=== PATIENT | female | born 1950 | race Caucasian/White ===

== ENCOUNTER → 2016-04-28 | Outpatient (CLI) | payer OTHER ==
[~2016-04-28] MED LIST: ASTAGRAF PO; BACTRIM 400 MG-1 TAB PO; COUMADIN1 M1 PO; DILTIAZEM ER120 MG PO; MAGNESIUM400 MG PO; MYCOPHENOLATE250 MG PO; PRAVACHOL20 MG PO; PREDNISONE5 MG PO; VITAMIN D32000 UNIT PO
[2016-04-28 11:06] LABS: INTERNATIONAL NORM RATIO 2.4 (2.0-3.5); PROTHROMBIN TIME 26.5 SECONDS (9.0-12.4)
== END | disposition home or self-care (01) ==
LOC: LAB 10:18
PROVIDERS: Internal Medicine
DX: I26.99 Other pulmonary embolism without acute cor pulmonale (principal); I82.409 Acute embolism and thrombosis of unspecified deep veins of unspecified lower extremity

== ENCOUNTER → 2016-05-02 | Outpatient (CLI) | payer OTHER ==
[2016-05-02 09:02] LABS: HEMATOCRIT 37.9 % (37.0-47.0); MEAN CELL VOLUME 87.7 fl (81.0-99.0); MEAN CORPUSCULAR HGB 27.8 pg (27.0-31.0); MEAN CORPUSCULAR HGB CONC 31.7 g/dl (33.0-37.0); MEAN PLATELET VOLUME 8.8 fl (9.6-12.3); PLATELET COUNT AUTOMATED 256 10*3/uL (130-400); RED BLOOD COUNT 4.32 10*6/uL (4.10-5.10); RED CELL DISTRI WIDTH 14.8 % (0-14.5); WHITE BLOOD COUNT 8.2 10*3/uL (4.8-10.8)
[2016-05-02 09:16] LABS: ALBUMIN 3.6 gm/dl (3.1-4.5); MAGNESIUM 1.8 mg/dL (1.5-2.1); PHOSPHOROUS 3.5 mg/dL (2.5-4.9)
[2016-05-02 09:21] LABS: EOSINOPHIL # 0.1 10*3/uL (0-0.4); EOSINOPHILS 1 % (1-4); LYMPHOCYTE # 2.3 10*3/uL (1.3-4.4); MONOCYTE # 0.8 10*3/uL (0.1-1.0); MYELOCYTES 1 % (0-0); NEUTROPHIL # 4.9 10*3/uL (2.3-7.9); NEUTROPHILS 60 % (47-73); TOTAL CELLS COUNTED 100 #CELLS
[2016-05-02 09:22] LABS: OVALOCYTES FEW; PLATELET SUFFICIENCY NORMAL (NORMAL)
== END | disposition home or self-care (01) ==
LOC: LAB 08:42
PROVIDERS: Internal Medicine Nephrology
DX: Z41.9 Encounter for procedure for purposes other than remedying health state, unspecified (principal); Z48.298 Encounter for aftercare following other organ transplant; E78.5 Hyperlipidemia, unspecified; Z94.0 Kidney transplant status; E55.9 Vitamin D deficiency, unspecified; N25.81 Secondary hyperparathyroidism of renal origin

== ENCOUNTER → 2016-07-11 | Outpatient (CLI) | payer OTHER ==
[2016-07-11 10:36] LABS: INTERNATIONAL NORM RATIO 3.1 (2.0-3.5); PROTHROMBIN TIME 35.4 SECONDS (9.0-12.4)
== END | disposition home or self-care (01) ==
LOC: LAB 09:43
PROVIDERS: Internal Medicine
DX: I26.99 Other pulmonary embolism without acute cor pulmonale (principal); I82.409 Acute embolism and thrombosis of unspecified deep veins of unspecified lower extremity

== ENCOUNTER → 2016-07-19 | Outpatient (CLI) | payer OTHER ==
[2016-07-19 09:21] LABS: BASO % 0.4 % (0.0-1.0); EOS # 0.1 10*3/uL (0.0-0.4); EOS % 0.7 % (1.0-4.0); HEMATOCRIT 38.1 % (37.0-47.0); HEMOGLOBIN 12.1 g/dl (12.0-16.0); LYMPH # 2.5 10*3/uL (1.3-4.4); LYMPH % 35.1 % (27.0-41.0); MEAN CELL VOLUME 88.2 fl (81.0-99.0); MEAN CORPUSCULAR HGB CONC 31.8 g/dl (33.0-37.0); MEAN PLATELET VOLUME 8.8 fl (9.6-12.3); MONO # 0.6 10*3/uL (0.1-1.0); MONO % 8.7 % (3.0-9.0); NEUT # 3.8 10*3/uL (2.3-7.9); NEUT % 54.5 % (47.0-73.0); PLATELET COUNT AUTOMATED 250 10*3/uL (130-400); RED BLOOD COUNT 4.32 10*6/uL (4.10-5.10); RED CELL DISTRI WIDTH 13.3 % (0-14.5)
[2016-07-19 09:48] LABS: ALBUMIN 3.3 gm/dl (3.1-4.5); ALKALINE PHOSPHATASE 54 U/L (45-117); BILIRUBIN, DIRECT < 0.1 mg/dL (0.0-0.2); BILIRUBIN, TOTAL 0.3 mg/dl (0.2-1.0); BUN 20 mg/dl (7-24); CARBON DIOXIDE 24 mmol/L (21-32); CHLORIDE 106 mmol/L (98-107); CHOLESTEROL 174 mg/dL (<200); EST GLOM FILT AFRICAN AMERICAN 50 ml/min; GLUCOSE 128 mg/dL (65-99); HDL CHOLESTEROL 66 mg/dl (40-60); LDL CHOLESTEROL 55 mg/dL (9-159); MAGNESIUM 1.6 mg/dL (1.5-2.1); PHOSPHOROUS 3.5 mg/dL (2.5-4.9); POTASSIUM 3.9 mmol/L (3.5-5.1); SGOT/AST 13 IU/L (3-35); SGPT/ALT 32 U/L (12-78); SODIUM 141 mmol/L (136-145); TOTAL PROTEIN 6.2 gm/dL (6.4-8.2); TRIGLYCERIDES 265 mg/dl (<150); VLDL CHOLESTEROL 53 mg/dL (6-40)
[2016-07-19 09:53] LABS: INTERNATIONAL NORM RATIO 2.7 (2.0-3.5); PROTHROMBIN TIME 29.9 SECONDS (9.0-12.4)
[2016-07-19 10:11] LABS: PTH INTACT 82.1 pg/mL (14.0-72.0); VITAMIN D, 25-HYDROXY 29.9 ng/mL (30-100)
== END | disposition home or self-care (01) ==
LOC: LAB 08:49
PROVIDERS: Internal Medicine Nephrology
DX: Z41.8 Encounter for other procedures for purposes other than remedying health state (principal); Z48.298 Encounter for aftercare following other organ transplant; I82.409 Acute embolism and thrombosis of unspecified deep veins of unspecified lower extremity; I26.99 Other pulmonary embolism without acute cor pulmonale; E55.9 Vitamin D deficiency, unspecified; N25.81 Secondary hyperparathyroidism of renal origin; E78.5 Hyperlipidemia, unspecified; Z94.0 Kidney transplant status

== ENCOUNTER → 2016-08-01 | Outpatient (CLI) | payer OTHER ==
[2016-08-01 13:19] LABS: INTERNATIONAL NORM RATIO 1.7 (2.0-3.5); PROTHROMBIN TIME 18.8 SECONDS (9.0-12.4)
== END | disposition home or self-care (01) ==
LOC: LAB 12:37
PROVIDERS: Internal Medicine
DX: I26.99 Other pulmonary embolism without acute cor pulmonale (principal); I82.409 Acute embolism and thrombosis of unspecified deep veins of unspecified lower extremity

== ENCOUNTER → 2016-08-23 | Outpatient (CLI) | payer OTHER ==
[2016-08-23 09:24] LABS: BASO % 0.2 % (0.0-1.0); EOS % 0.3 % (1.0-4.0); HEMATOCRIT 38.5 % (37.0-47.0); HEMOGLOBIN 12.4 g/dl (12.0-16.0); IG # 0.1 10*3/uL (0.0-0.1); LYMPH # 3.2 10*3/uL (1.3-4.4); LYMPH % 30.6 % (27.0-41.0); MEAN CELL VOLUME 87.3 fl (81.0-99.0); MEAN CORPUSCULAR HGB 28.1 pg (27.0-31.0); MEAN CORPUSCULAR HGB CONC 32.2 g/dl (33.0-37.0); MEAN PLATELET VOLUME 9.3 fl (9.6-12.3); MONO # 0.9 10*3/uL (0.1-1.0); MONO % 8.9 % (3.0-9.0); NEUT # 6.2 10*3/uL (2.3-7.9); NEUT % 59.5 % (47.0-73.0); PLATELET COUNT AUTOMATED 290 10*3/uL (130-400); RED BLOOD COUNT 4.41 10*6/uL (4.10-5.10); RED CELL DISTRI WIDTH 13.4 % (0-14.5); WHITE BLOOD COUNT 10.4 10*3/uL (4.8-10.8)
[2016-08-23 09:35] LABS: ALBUMIN 3.3 gm/dl (3.1-4.5); MAGNESIUM 1.8 mg/dL (1.5-2.1); PHOSPHOROUS 2.8 mg/dL (2.5-4.9)
[2016-08-23 09:51] LABS: INTERNATIONAL NORM RATIO 1.6 (2.0-3.5); PROTHROMBIN TIME 17.2 SECONDS (9.0-12.4)
== END | disposition home or self-care (01) ==
LOC: LAB 08:59
PROVIDERS: Internal Medicine; Internal Medicine Nephrology
DX: Z51.81 Encounter for therapeutic drug level monitoring (principal); I48.0 Paroxysmal atrial fibrillation; N25.81 Secondary hyperparathyroidism of renal origin; E55.9 Vitamin D deficiency, unspecified; E78.5 Hyperlipidemia, unspecified; Z94.0 Kidney transplant status; Z48.298 Encounter for aftercare following other organ transplant

== ENCOUNTER → 2016-11-17 | Outpatient (CLI) | payer OTHER ==
[2016-11-17 09:33] LABS: BASO % 0.3 % (0.0-1.0); EOS % 0.4 % (1.0-4.0); HEMATOCRIT 32.4 % (37.0-47.0); IG # 0.1 10*3/uL (0.0-0.1); LYMPH # 2.3 10*3/uL (1.3-4.4); LYMPH % 33.2 % (27.0-41.0); MEAN CELL VOLUME 89.8 fl (81.0-99.0); MEAN CORPUSCULAR HGB 27.7 pg (27.0-31.0); MEAN CORPUSCULAR HGB CONC 30.9 g/dl (33.0-37.0); MEAN PLATELET VOLUME 9.6 fl (9.6-12.3); MONO # 0.6 10*3/uL (0.1-1.0); PLATELET COUNT AUTOMATED 312 10*3/uL (130-400); RED BLOOD COUNT 3.61 10*6/uL (4.10-5.10); RED CELL DISTRI WIDTH 16.6 % (0-14.5)
[2016-11-17 09:51] LABS: INTERNATIONAL NORM RATIO 1.7 (2.0-3.5); PROTHROMBIN TIME 18.7 SECONDS (9.0-12.4)
[2016-11-17 09:58] LABS: ALBUMIN 2.9 gm/dl (3.1-4.5); BILIRUBIN, DIRECT < 0.1 mg/dL (0.0-0.2); BUN 17 mg/dl (7-24); CARBON DIOXIDE 19 mmol/L (21-32); CHLORIDE 107 mmol/L (98-107); CHOLESTEROL 166 mg/dL (<200); EST GLOM FILT AFRICAN AMERICAN > 60 ml/min; GLUCOSE 122 mg/dL (65-99); MAGNESIUM 1.3 mg/dL (1.5-2.1); PHOSPHOROUS 3.2 mg/dL (2.5-4.9); POTASSIUM 3.4 mmol/L (3.5-5.1); SGOT/AST 11 IU/L (3-35); SGPT/ALT 15 U/L (12-78); SODIUM 138 mmol/L (136-145); TOTAL PROTEIN 6.2 gm/dL (6.4-8.2); TRIGLYCERIDES 328 mg/dl (<150); VLDL CHOLESTEROL 66 mg/dL (6-40)
[2016-11-17 10:00] LABS: ALKALINE PHOSPHATASE 43 U/L (45-117); BILIRUBIN, TOTAL 0.3 mg/dl (0.2-1.0); HDL CHOLESTEROL 42 mg/dl (40-60); LDL CHOLESTEROL 58 mg/dL (9-159)
[2016-11-17 10:16] LABS: PTH INTACT 30.3 pg/mL (14.0-72.0); VITAMIN D, 25-HYDROXY 36.4 ng/mL (30-100)
== END | disposition home or self-care (01) ==
LOC: LAB 08:21
PROVIDERS: Internal Medicine Nephrology
DX: Z51.81 Encounter for therapeutic drug level monitoring (principal); Z48.298 Encounter for aftercare following other organ transplant; I48.0 Paroxysmal atrial fibrillation; E78.00 Pure hypercholesterolemia, unspecified; E55.9 Vitamin D deficiency, unspecified; Z97.0 Presence of artificial eye

== ENCOUNTER → 2016-11-28 | Outpatient (CLI) | payer OTHER ==
[2016-11-28 10:26] LABS: BASO % 0.3 % (0.0-1.0); EOS % 0.5 % (1.0-4.0); HEMATOCRIT 30.6 % (37.0-47.0); HEMOGLOBIN 9.4 g/dl (12.0-16.0); IG # 0.1 10*3/uL (0.0-0.1); LYMPH # 2.7 10*3/uL (1.3-4.4); LYMPH % 36.5 % (27.0-41.0); MEAN CELL VOLUME 91.9 fl (81.0-99.0); MEAN CORPUSCULAR HGB 28.2 pg (27.0-31.0); MEAN CORPUSCULAR HGB CONC 30.7 g/dl (33.0-37.0); MEAN PLATELET VOLUME 9.5 fl (9.6-12.3); MONO # 0.6 10*3/uL (0.1-1.0); MONO % 8.1 % (3.0-9.0); NEUT # 3.9 10*3/uL (2.3-7.9); NEUT % 53.6 % (47.0-73.0); PLATELET COUNT AUTOMATED 293 10*3/uL (130-400); RED BLOOD COUNT 3.33 10*6/uL (4.10-5.10); RED CELL DISTRI WIDTH 16.5 % (0-14.5); WHITE BLOOD COUNT 7.3 10*3/uL (4.8-10.8)
[2016-11-28 10:52] LABS: INTERNATIONAL NORM RATIO 1.5 (2.0-3.5); PROTHROMBIN TIME 16.1 SECONDS (9.0-12.4)
[2016-11-28 10:55] LABS: MAGNESIUM 1.6 mg/dL (1.5-2.1); POTASSIUM 3.8 mmol/L (3.5-5.1); URIC ACID 8.7 mg/dL (2.6-6.0)
[2016-11-28 11:16] LABS: PTH INTACT 81.9 pg/mL (14.0-72.0); VITAMIN D, 25-HYDROXY 31.6 ng/mL (30-100)
[2016-11-29 05:11] LABS: MICRO ALBUMIN/CRE RATIO 9.6 (0.0-30.0)
== END | disposition home or self-care (01) ==
LOC: LAB 09:23
PROVIDERS: Internal Medicine Nephrology
DX: I12.9 Hypertensive chronic kidney disease with stage 1 through stage 4 chronic kidney disease, or unspecified chronic kidney disease (principal); N18.4 Chronic kidney disease, stage 4 (severe); D63.1 Anemia in chronic kidney disease; I48.0 Paroxysmal atrial fibrillation; N25.81 Secondary hyperparathyroidism of renal origin; E55.9 Vitamin D deficiency, unspecified; Q61.3 Polycystic kidney, unspecified; Z94.0 Kidney transplant status

== ENCOUNTER → 2016-12-12 | Outpatient (CLI) | payer OTHER ==
[2016-12-12 10:26] LABS: INTERNATIONAL NORM RATIO 2.2 (2.0-3.5); PROTHROMBIN TIME 25.1 SECONDS (9.0-12.4)
== END | disposition home or self-care (01) ==
LOC: LAB 09:40
PROVIDERS: Internal Medicine
DX: I48.0 Paroxysmal atrial fibrillation (principal)

== ENCOUNTER → 2016-12-23 | Outpatient (CLI) | payer OTHER ==
[2016-12-23 10:28] LABS: INTERNATIONAL NORM RATIO 1.8 (2.0-3.5)
== END | disposition home or self-care (01) ==
LOC: LAB 09:46
PROVIDERS: Internal Medicine
DX: I48.0 Paroxysmal atrial fibrillation (principal)

== ENCOUNTER → 2016-12-28 | Outpatient (CLI) | payer OTHER ==
[2016-12-28 08:39] LABS: BASO % 0.5 % (0.0-1.0); EOS # 0.1 10*3/uL (0.0-0.4); EOS % 0.8 % (1.0-4.0); HEMATOCRIT 35.7 % (37.0-47.0); HEMOGLOBIN 11.2 g/dl (12.0-16.0); LYMPH # 3.3 10*3/uL (1.3-4.4); LYMPH % 44.3 % (27.0-41.0); MEAN CELL VOLUME 90.4 fl (81.0-99.0); MEAN CORPUSCULAR HGB 28.4 pg (27.0-31.0); MEAN CORPUSCULAR HGB CONC 31.4 g/dl (33.0-37.0); MEAN PLATELET VOLUME 9.6 fl (9.6-12.3); MONO # 0.7 10*3/uL (0.1-1.0); NEUT # 3.3 10*3/uL (2.3-7.9); NEUT % 44.2 % (47.0-73.0); PLATELET COUNT AUTOMATED 288 10*3/uL (130-400); RED BLOOD COUNT 3.95 10*6/uL (4.10-5.10); RED CELL DISTRI WIDTH 14.5 % (0-14.5); WHITE BLOOD COUNT 7.4 10*3/uL (4.8-10.8)
[2016-12-28 08:53] LABS: CREATININE 1.34 mg/dL (0.55-1.02); MAGNESIUM 1.9 mg/dL (1.5-2.1); URIC ACID 8.3 mg/dL (2.6-6.0)
[2016-12-28 09:18] LABS: POTASSIUM 4.4 mmol/L (3.5-5.1)
[2016-12-28 09:26] LABS: VITAMIN D, 25-HYDROXY 34.5 ng/mL (30-100)
[2016-12-29 10:09] LABS: CREATININE,URINE 137.5 mg/dL (Not Estab.); MICRO ALBUMIN/CRE RATIO 32.8 (0.0-30.0)
== END | disposition home or self-care (01) ==
LOC: LAB 07:53
PROVIDERS: Internal Medicine Nephrology
DX: I12.9 Hypertensive chronic kidney disease with stage 1 through stage 4 chronic kidney disease, or unspecified chronic kidney disease (principal); N18.4 Chronic kidney disease, stage 4 (severe); E55.9 Vitamin D deficiency, unspecified; D63.1 Anemia in chronic kidney disease; N25.81 Secondary hyperparathyroidism of renal origin; Q61.3 Polycystic kidney, unspecified; Z94.0 Kidney transplant status

== ENCOUNTER → 2017-01-16 | Outpatient (CLI) | payer OTHER ==
[2017-01-16 09:00] LABS: BASO % 0.4 % (0.0-1.0); EOS # 0.1 10*3/uL (0.0-0.4); EOS % 0.7 % (1.0-4.0); HEMATOCRIT 35.3 % (37.0-47.0); HEMOGLOBIN 11.4 g/dl (12.0-16.0); LYMPH # 2.7 10*3/uL (1.3-4.4); LYMPH % 35.3 % (27.0-41.0); MEAN CELL VOLUME 88.5 fl (81.0-99.0); MEAN CORPUSCULAR HGB 28.6 pg (27.0-31.0); MEAN CORPUSCULAR HGB CONC 32.3 g/dl (33.0-37.0); MEAN PLATELET VOLUME 9.4 fl (9.6-12.3); MONO # 0.6 10*3/uL (0.1-1.0); MONO % 7.9 % (3.0-9.0); NEUT # 4.1 10*3/uL (2.3-7.9); NEUT % 54.4 % (47.0-73.0); PLATELET COUNT AUTOMATED 255 10*3/uL (130-400); RED BLOOD COUNT 3.99 10*6/uL (4.10-5.10); WHITE BLOOD COUNT 7.6 10*3/uL (4.8-10.8)
[2017-01-16 09:34] LABS: ALBUMIN 3.2 gm/dl (3.1-4.5); CREATININE 1.2 mg/dL (0.55-1.02); MAGNESIUM 1.7 mg/dL (1.5-2.1); PHOSPHOROUS 3.3 mg/dL (2.5-4.9)
[2017-01-16 09:40] LABS: INTERNATIONAL NORM RATIO 2.5 (2.0-3.5)
[2017-01-16 09:49] LABS: DIGOXIN 0.7 ng/ml (0.8-2.0); TOTAL PROTEIN 6.5 gm/dL (6.4-8.2)
[2017-01-16 10:42] LABS: PTH INTACT 76.8 pg/mL (14.0-72.0); VITAMIN D, 25-HYDROXY 25.5 ng/mL (30-100)
[2017-01-16 14:46] LABS: BILIRUBIN NEGATIVE (NEGATIVE); BLOOD NEGATIVE (NEGATIVE); CLARITY SL CLOUDY (CLEAR); COLOR YELLOW (YELLOW); GLUCOSE NEGATIVE (NEGATIVE); KETONE NEGATIVE (NEGATIVE); LEUKO ESTERASE TRACE (NEGATIVE); NITRITE NEGATIVE (NEGATIVE); SPECIFIC GRAVITY 1.025 (1.005-1.030); UROBILINOGEN 0.2 E.U./dl (0.2-1.0)
[2017-01-16 15:01] LABS: BACTERIA 1+; EPITHELIAL CELLS TNTC; RBC 0-2 rbc/hpf (0-2)
== END | disposition home or self-care (01) ==
LOC: LAB 08:29
PROVIDERS: Internal Medicine; Internal Medicine Nephrology
DX: N18.4 Chronic kidney disease, stage 4 (severe) (principal); E55.9 Vitamin D deficiency, unspecified; I48.0 Paroxysmal atrial fibrillation

== ENCOUNTER → 2017-02-07 | Outpatient (CLI) | payer OTHER ==
[2017-02-07 08:56] LABS: INTERNATIONAL NORM RATIO 2.2 (2.0-3.5)
== END | disposition home or self-care (01) ==
LOC: LAB 07:49
PROVIDERS: Internal Medicine
DX: I48.0 Paroxysmal atrial fibrillation (principal)

== ENCOUNTER → 2017-03-01 | Outpatient (CLI) | payer OTHER ==
[2017-03-01 08:52] LABS: BASO % 0.3 % (0.0-1.0); EOS # 0.1 10*3/uL (0.0-0.4); EOS % 0.7 % (1.0-4.0); HEMATOCRIT 35.6 % (37.0-47.0); HEMOGLOBIN 11.3 g/dl (12.0-16.0); LYMPH % 26.5 % (27.0-41.0); MEAN CELL VOLUME 89.7 fl (81.0-99.0); MEAN CORPUSCULAR HGB 28.5 pg (27.0-31.0); MEAN CORPUSCULAR HGB CONC 31.7 g/dl (33.0-37.0); MEAN PLATELET VOLUME 9.1 fl (9.6-12.3); MONO # 0.7 10*3/uL (0.1-1.0); NEUT # 4.7 10*3/uL (2.3-7.9); NEUT % 62.6 % (47.0-73.0); PLATELET COUNT AUTOMATED 244 10*3/uL (130-400); RED BLOOD COUNT 3.97 10*6/uL (4.10-5.10); WHITE BLOOD COUNT 7.5 10*3/uL (4.8-10.8)
[2017-03-01 09:15] LABS: CREATININE 1.23 mg/dL (0.55-1.02)
[2017-03-01 09:35] LABS: INTERNATIONAL NORM RATIO 1.8 (2.0-3.5)
[2017-03-01 09:40] LABS: VITAMIN D, 25-HYDROXY 30.3 ng/mL (30-100)
[2017-03-01 09:41] LABS: PTH INTACT 49.5 pg/mL (14.0-72.0)
[2017-03-01 16:12] LABS: BILIRUBIN NEGATIVE (NEGATIVE); BLOOD NEGATIVE (NEGATIVE); CLARITY SL CLOUDY (CLEAR); COLOR YELLOW (YELLOW); GLUCOSE 1+ (NEGATIVE); KETONE NEGATIVE (NEGATIVE); LEUKO ESTERASE NEGATIVE (NEGATIVE); NITRITE NEGATIVE (NEGATIVE); UROBILINOGEN 0.2 E.U./dl (0.2-1.0)
[2017-03-01 16:34] LABS: BACTERIA 1+; EPITHELIAL CELLS 21-30
== END | disposition home or self-care (01) ==
LOC: LAB 08:32
PROVIDERS: Internal Medicine Nephrology
DX: N18.4 Chronic kidney disease, stage 4 (severe) (principal); I48.0 Paroxysmal atrial fibrillation; E55.9 Vitamin D deficiency, unspecified

== ENCOUNTER → 2017-03-27 | Outpatient (CLI) | payer OTHER ==
[2017-03-27 09:02] LABS: BASO % 0.4 % (0.0-1.0); EOS % 0.5 % (1.0-4.0); HEMATOCRIT 37.6 % (37.0-47.0); HEMOGLOBIN 12.2 g/dl (12.0-16.0); LYMPH # 2.5 10*3/uL (1.3-4.4); LYMPH % 29.3 % (27.0-41.0); MEAN CELL VOLUME 89.5 fl (81.0-99.0); MEAN CORPUSCULAR HGB CONC 32.4 g/dl (33.0-37.0); MEAN PLATELET VOLUME 9.3 fl (9.6-12.3); MONO # 0.7 10*3/uL (0.1-1.0); MONO % 7.9 % (3.0-9.0); NEUT # 5.1 10*3/uL (2.3-7.9); NEUT % 60.7 % (47.0-73.0); PLATELET COUNT AUTOMATED 266 10*3/uL (130-400); WHITE BLOOD COUNT 8.4 10*3/uL (4.8-10.8)
[2017-03-27 09:34] LABS: INTERNATIONAL NORM RATIO 1.4 (2.0-3.5)
[2017-03-27 09:43] LABS: POTASSIUM 3.7 mmol/L (3.5-5.1)
[2017-03-27 10:00] LABS: CREATININE 1.18 mg/dL (0.55-1.02); PHOSPHOROUS 2.9 mg/dL (2.5-4.9)
[2017-03-27 11:08] LABS: PTH INTACT 74.6 pg/mL (14.0-72.0); VITAMIN D, 25-HYDROXY 25.7 ng/mL (30-100)
[2017-03-27 13:31] LABS: BILIRUBIN NEGATIVE (NEGATIVE); BLOOD NEGATIVE (NEGATIVE); COLOR YELLOW (YELLOW); GLUCOSE 3+ (NEGATIVE); KETONE NEGATIVE (NEGATIVE); LEUKO ESTERASE NEGATIVE (NEGATIVE); NITRITE NEGATIVE (NEGATIVE); PH 6.5 (5.0-9.0); UROBILINOGEN 0.2 E.U./dl (0.2-1.0)
[2017-03-27 13:35] LABS: CLARITY CLEAR (CLEAR)
[2017-03-27 13:57] LABS: EPITHELIAL CELLS 0-2
== END | disposition home or self-care (01) ==
LOC: LAB 08:32
PROVIDERS: Internal Medicine; Internal Medicine Nephrology
DX: I48.0 Paroxysmal atrial fibrillation (principal); N18.4 Chronic kidney disease, stage 4 (severe); E55.9 Vitamin D deficiency, unspecified

== ENCOUNTER → 2017-04-06 | Outpatient (CLI) | payer OTHER ==
[2017-04-06 14:26] LABS: INTERNATIONAL NORM RATIO 1.4 (2.0-3.5)
== END | disposition home or self-care (01) ==
LOC: LAB 12:31
PROVIDERS: Internal Medicine
DX: I48.0 Paroxysmal atrial fibrillation (principal)

== ENCOUNTER → 2017-05-05 | Outpatient (CLI) | payer OTHER ==
[2017-05-05 08:46] LABS: BILIRUBIN NEGATIVE (NEGATIVE); BLOOD 1+ (NEGATIVE); CLARITY CLOUDY (CLEAR); COLOR YELLOW (YELLOW); GLUCOSE 3+ (NEGATIVE); KETONE NEGATIVE (NEGATIVE); NITRITE NEGATIVE (NEGATIVE); UROBILINOGEN 0.2 E.U./dl (0.2-1.0)
[2017-05-05 08:59] LABS: LEUKO ESTERASE TRACE (NEGATIVE)
[2017-05-05 09:05] LABS: BACTERIA 2+; EPITHELIAL CELLS 21-30; WBC 31-40 wbc/hpf (0-5)
[2017-05-05 09:18] LABS: BASO % 0.3 % (0.0-1.0); EOS # 0.1 10*3/uL (0.0-0.4); EOS % 0.7 % (1.0-4.0); HEMATOCRIT 40.8 % (37.0-47.0); HEMOGLOBIN 13.7 g/dl (12.0-16.0); LYMPH # 2.7 10*3/uL (1.3-4.4); LYMPH % 37.6 % (27.0-41.0); MEAN CELL VOLUME 85.9 fl (81.0-99.0); MEAN CORPUSCULAR HGB 28.8 pg (27.0-31.0); MEAN CORPUSCULAR HGB CONC 33.6 g/dl (33.0-37.0); MEAN PLATELET VOLUME 9.8 fl (9.6-12.3); MONO # 0.6 10*3/uL (0.1-1.0); MONO % 8.5 % (3.0-9.0); NEUT # 3.8 10*3/uL (2.3-7.9); NEUT % 51.9 % (47.0-73.0); PLATELET COUNT AUTOMATED 264 10*3/uL (130-400); RED BLOOD COUNT 4.75 10*6/uL (4.10-5.10); WHITE BLOOD COUNT 7.3 10*3/uL (4.8-10.8)
[2017-05-05 09:23] LABS: CREATININE 1.4 mg/dL (0.55-1.02); PHOSPHOROUS 3.5 mg/dL (2.5-4.9); POTASSIUM 4.1 mmol/L (3.5-5.1)
[2017-05-05 09:25] LABS: INTERNATIONAL NORM RATIO 1.3 (2.0-3.5)
[2017-05-05 12:05] LABS: PTH INTACT 44.8 pg/mL (14.0-72.0); VITAMIN D, 25-HYDROXY 19.2 ng/mL (30-100)
== END | disposition home or self-care (01) ==
LOC: LAB 08:19
PROVIDERS: Internal Medicine Nephrology
DX: I48.91 Unspecified atrial fibrillation (principal); N18.9 Chronic kidney disease, unspecified; I48.0 Paroxysmal atrial fibrillation

== ENCOUNTER → 2017-06-09 | Outpatient (CLI) | payer OTHER ==
[2017-06-09 14:05] LABS: CREATININE 1.6 mg/dL (0.55-1.02); POTASSIUM 4.3 mmol/L (3.5-5.1)
== END | disposition home or self-care (01) ==
LOC: LAB 13:00
PROVIDERS: Internal Medicine Nephrology
DX: I12.9 Hypertensive chronic kidney disease with stage 1 through stage 4 chronic kidney disease, or unspecified chronic kidney disease (principal); N18.4 Chronic kidney disease, stage 4 (severe); D63.1 Anemia in chronic kidney disease; Q61.3 Polycystic kidney, unspecified; N25.81 Secondary hyperparathyroidism of renal origin; E55.9 Vitamin D deficiency, unspecified; Z94.0 Kidney transplant status

== ENCOUNTER → 2017-07-11 | Outpatient (CLI) | payer OTHER ==
[2017-07-11 11:41] LABS: INTERNATIONAL NORM RATIO 2.6 (2.0-3.5)
== END | disposition home or self-care (01) ==
LOC: LAB 11:00
PROVIDERS: Internal Medicine
DX: I48.0 Paroxysmal atrial fibrillation (principal)

== ENCOUNTER → 2017-08-03 | Outpatient (CLI) | payer OTHER ==
[2017-08-03 09:09] LABS: HEMATOCRIT 38.6 % (37.0-47.0); HEMOGLOBIN 12.4 g/dl (12.0-16.0); MEAN CELL VOLUME 90.2 fl (81.0-99.0); MEAN CORPUSCULAR HGB CONC 32.1 g/dl (33.0-37.0); MEAN PLATELET VOLUME 8.9 fl (9.6-12.3); PLATELET COUNT AUTOMATED 193 10*3/uL (130-400); RED BLOOD COUNT 4.28 10*6/uL (4.10-5.10); RED CELL DISTRI WIDTH 14.7 % (0-14.5); WHITE BLOOD COUNT 5.6 10*3/uL (4.8-10.8)
[2017-08-03 09:14] LABS: BILIRUBIN NEGATIVE (NEGATIVE); BLOOD NEGATIVE (NEGATIVE); CLARITY CLEAR (CLEAR); COLOR YELLOW (YELLOW); GLUCOSE NEGATIVE (NEGATIVE); KETONE NEGATIVE (NEGATIVE); LEUKO ESTERASE NEGATIVE (NEGATIVE); NITRITE NEGATIVE (NEGATIVE); PH 5.5 (5.0-9.0); UROBILINOGEN 0.2 E.U./dl (0.2-1.0)
[2017-08-03 09:46] LABS: ALBUMIN 3.5 gm/dl (3.1-4.5); CREATININE 1.29 mg/dL (0.55-1.02); POTASSIUM 4.1 mmol/L (3.5-5.1); TOTAL PROTEIN 6.5 gm/dL (6.4-8.2); URIC ACID 5.7 mg/dL (2.6-6.0)
[2017-08-03 09:52] LABS: THYROID STIM HORMONE (HS) 2.19 uIU/ml (0.358-4.75)
[2017-08-03 09:55] LABS: OVALOCYTES FEW; PLATELET SUFFICIENCY NORMAL (NORMAL); TOTAL CELLS COUNTED 100 #CELLS
[2017-08-03 10:12] LABS: INTERNATIONAL NORM RATIO 2.4 (2.0-3.5)
[2017-08-03 10:38] LABS: BACTERIA TRACE; EPITHELIAL CELLS 0-2; WBC 0-2 wbc/hpf (0-5)
[2017-08-04 10:08] LABS: CREATININE,URINE 29.2 mg/dL (Not Estab.); MICRO ALBUMIN/CRE RATIO 14.4 (0.0-30.0)
== END | disposition home or self-care (01) ==
LOC: LAB 08:32
PROVIDERS: Internal Medicine; Internal Medicine Nephrology
DX: I48.0 Paroxysmal atrial fibrillation (principal); E78.4 Other hyperlipidemia; E03.9 Hypothyroidism, unspecified; D63.1 Anemia in chronic kidney disease; N25.81 Secondary hyperparathyroidism of renal origin; E55.9 Vitamin D deficiency, unspecified; Q61.3 Polycystic kidney, unspecified; I12.9 Hypertensive chronic kidney disease with stage 1 through stage 4 chronic kidney disease, or unspecified chronic kidney disease; N18.4 Chronic kidney disease, stage 4 (severe); Z94.0 Kidney transplant status

== ENCOUNTER → 2017-08-29 | Outpatient (CLI) | payer OTHER ==
[2017-08-29 12:58] LABS: INTERNATIONAL NORM RATIO 3.1 (2.0-3.5)
== END | disposition home or self-care (01) ==
LOC: LAB 11:49
PROVIDERS: Internal Medicine
DX: I48.0 Paroxysmal atrial fibrillation (principal)

== ENCOUNTER → 2017-09-06 | Outpatient (CLI) | payer OTHER | END | disposition home or self-care (01) | LOC: LAB 10:50 | PROVIDERS: Internal Medicine | DX: I48.0 Paroxysmal atrial fibrillation (principal) ==

== ENCOUNTER → 2017-09-22 | Outpatient (CLI) | payer OTHER ==
[2017-09-22 09:14] LABS: INTERNATIONAL NORM RATIO 1.8 (2.0-3.5)
== END | disposition home or self-care (01) ==
LOC: LAB 08:11
PROVIDERS: Internal Medicine; Internal Medicine Nephrology
DX: I48.0 Paroxysmal atrial fibrillation (principal); N18.9 Chronic kidney disease, unspecified

== ENCOUNTER → 2017-10-06 | Outpatient (CLI) | payer OTHER ==
[2017-10-06 09:34] LABS: INTERNATIONAL NORM RATIO 1.7 (2.0-3.5)
== END | disposition home or self-care (01) ==
LOC: LAB 08:10
PROVIDERS: Internal Medicine Nephrology
DX: I12.9 Hypertensive chronic kidney disease with stage 1 through stage 4 chronic kidney disease, or unspecified chronic kidney disease (principal); N18.9 Chronic kidney disease, unspecified; I48.0 Paroxysmal atrial fibrillation; M18.4 Other bilateral secondary osteoarthritis of first carpometacarpal joints; E55.9 Vitamin D deficiency, unspecified; N25.81 Secondary hyperparathyroidism of renal origin; D63.1 Anemia in chronic kidney disease; Q61.3 Polycystic kidney, unspecified; Z94.0 Kidney transplant status

== ENCOUNTER → 2017-10-17 | Outpatient (CLI) | payer OTHER | END | disposition home or self-care (01) | LOC: LAB 08:10 | DX: F34.1 Dysthymic disorder (principal); Z94.0 Kidney transplant status ==

== ENCOUNTER → 2017-11-03 | Outpatient (CLI) | payer OTHER ==
[2017-11-03 10:23] LABS: INTERNATIONAL NORM RATIO 1.7 (2.0-3.5)
== END | disposition home or self-care (01) ==
LOC: LAB 09:34
PROVIDERS: Internal Medicine
DX: I48.0 Paroxysmal atrial fibrillation (principal)

== ENCOUNTER → 2017-11-24 | Outpatient (CLI) | payer OTHER ==
[2017-11-24 09:28] LABS: BILIRUBIN NEGATIVE (NEGATIVE); BLOOD NEGATIVE (NEGATIVE); CLARITY CLEAR (CLEAR); COLOR YELLOW (YELLOW); GLUCOSE NEGATIVE (NEGATIVE); KETONE NEGATIVE (NEGATIVE); LEUKO ESTERASE NEGATIVE (NEGATIVE); NITRITE NEGATIVE (NEGATIVE); SPECIFIC GRAVITY <= 1.005 (1.005-1.030); UROBILINOGEN 0.2 E.U./dl (0.2-1.0)
[2017-11-24 09:46] LABS: CREATININE 1.17 mg/dL (0.55-1.02); PHOSPHOROUS 3.2 mg/dL (2.5-4.9); POTASSIUM 4.1 mmol/L (3.5-5.1); URIC ACID 5.4 mg/dL (2.6-6.0)
[2017-11-24 10:01] LABS: RBC 0-2 rbc/hpf (0-2); WBC 0-2 wbc/hpf (0-5)
[2017-11-24 10:18] LABS: VITAMIN D, 25-HYDROXY 19.5 ng/mL (30-100)
[2017-11-24 10:19] LABS: PTH INTACT 89.1 pg/mL (18.5-88.0)
[2017-11-25 08:08] LABS: CREATININE,URINE 40.7 mg/dL (Not Estab.); MICRO ALBUMIN/CRE RATIO 16.7 (0.0-30.0)
== END | disposition home or self-care (01) ==
LOC: LAB 08:47
PROVIDERS: Internal Medicine Nephrology
DX: I12.9 Hypertensive chronic kidney disease with stage 1 through stage 4 chronic kidney disease, or unspecified chronic kidney disease (principal); D63.1 Anemia in chronic kidney disease; N18.4 Chronic kidney disease, stage 4 (severe); E55.9 Vitamin D deficiency, unspecified; N25.81 Secondary hyperparathyroidism of renal origin; Q61.3 Polycystic kidney, unspecified; Z94.0 Kidney transplant status

== ENCOUNTER → 2017-11-30 | Outpatient (CLI) | payer OTHER ==
[2017-11-30 09:10] LABS: BASO # 0.1 10*3/uL (0.0-0.1); BASO % 0.9 % (0.0-1.0); EOS # 0.1 10*3/uL (0.0-0.4); EOS % 1.1 % (1.0-4.0); HEMATOCRIT 40.4 % (37.0-47.0); HEMOGLOBIN 12.4 g/dl (12.0-16.0); LYMPH # 2.2 10*3/uL (1.3-4.4); LYMPH % 39.1 % (27.0-41.0); MEAN CELL VOLUME 92.9 fl (81.0-99.0); MEAN CORPUSCULAR HGB 28.5 pg (27.0-31.0); MEAN CORPUSCULAR HGB CONC 30.7 g/dl (33.0-37.0); MEAN PLATELET VOLUME 9.4 fl (9.6-12.3); MONO # 0.6 10*3/uL (0.1-1.0); MONO % 11.2 % (3.0-9.0); NEUT # 2.5 10*3/uL (2.3-7.9); NEUT % 44.7 % (47.0-73.0); PLATELET COUNT AUTOMATED 217 10*3/uL (130-400); RED BLOOD COUNT 4.35 10*6/uL (4.10-5.10); RED CELL DISTRI WIDTH 13.6 % (0-14.5); WHITE BLOOD COUNT 5.7 10*3/uL (4.8-10.8)
[2017-11-30 09:38] LABS: ALBUMIN 3.4 gm/dl (3.1-4.5); CREATININE 1.22 mg/dL (0.55-1.02); POTASSIUM 4.3 mmol/L (3.5-5.1); TOTAL PROTEIN 6.3 gm/dL (6.4-8.2); URIC ACID 5.4 mg/dL (2.6-6.0)
[2017-11-30 09:39] LABS: INTERNATIONAL NORM RATIO 2.1 (2.0-3.5)
[2017-11-30 09:43] LABS: THYROID STIM HORMONE (HS) 3.59 uIU/ml (0.358-4.75)
== END | disposition home or self-care (01) ==
LOC: LAB 08:26
PROVIDERS: Internal Medicine
DX: I12.9 Hypertensive chronic kidney disease with stage 1 through stage 4 chronic kidney disease, or unspecified chronic kidney disease (principal); E11.22 Type 2 diabetes mellitus with diabetic chronic kidney disease; N18.9 Chronic kidney disease, unspecified; I48.0 Paroxysmal atrial fibrillation; E78.4 Other hyperlipidemia; E03.9 Hypothyroidism, unspecified; E55.9 Vitamin D deficiency, unspecified; M10.9 Gout, unspecified; Z94.0 Kidney transplant status

== ENCOUNTER → 2017-12-21 | Outpatient (CLI) | payer OTHER ==
[2017-12-21 10:36] LABS: INTERNATIONAL NORM RATIO 1.8 (2.0-3.5)
== END | disposition home or self-care (01) ==
LOC: LAB 09:09
PROVIDERS: Internal Medicine
DX: I48.0 Paroxysmal atrial fibrillation (principal)

== ENCOUNTER → 2018-01-23 | Outpatient (CLI) | payer OTHER ==
[2018-01-23 13:12] LABS: INTERNATIONAL NORM RATIO 1.4 (2.0-3.5)
== END | disposition home or self-care (01) ==
LOC: LAB 11:20
PROVIDERS: Internal Medicine
DX: I48.0 Paroxysmal atrial fibrillation (principal)

== ENCOUNTER → 2018-01-30 | Outpatient (CLI) | payer OTHER ==
[2018-01-30 12:56] LABS: INTERNATIONAL NORM RATIO 1.7 (2.0-3.5)
== END | disposition home or self-care (01) ==
LOC: LAB 11:53
PROVIDERS: Internal Medicine
DX: I48.0 Paroxysmal atrial fibrillation (principal)

== ENCOUNTER → 2018-02-23 | Outpatient (CLI) | payer OTHER ==
[2018-02-23 08:38] LABS: INTERNATIONAL NORM RATIO 1.9 (2.0-3.5)
== END | disposition home or self-care (01) ==
LOC: LAB 07:27
PROVIDERS: Internal Medicine
DX: I48.0 Paroxysmal atrial fibrillation (principal)

== ENCOUNTER → 2018-02-27 | Outpatient (CLI) | payer OTHER ==
[2018-02-27 09:09] LABS: CREATININE 1.36 mg/dL (0.55-1.02); POTASSIUM 3.8 mmol/L (3.5-5.1)
== END | disposition home or self-care (01) ==
LOC: LAB 08:15
PROVIDERS: Internal Medicine Nephrology
DX: I12.9 Hypertensive chronic kidney disease with stage 1 through stage 4 chronic kidney disease, or unspecified chronic kidney disease (principal); D63.1 Anemia in chronic kidney disease; N18.4 Chronic kidney disease, stage 4 (severe); E55.9 Vitamin D deficiency, unspecified; N25.81 Secondary hyperparathyroidism of renal origin; Q61.3 Polycystic kidney, unspecified; Z94.0 Kidney transplant status

== ENCOUNTER → 2018-03-19 | Outpatient (CLI) | payer OTHER | END | disposition home or self-care (01) | LOC: LAB 10:51 | PROVIDERS: Internal Medicine | DX: I48.0 Paroxysmal atrial fibrillation (principal) ==

== ENCOUNTER → 2018-03-28 | Outpatient (CLI) | payer OTHER ==
[2018-03-28 09:11] LABS: HEMATOCRIT 38.8 % (37.0-47.0); HEMOGLOBIN 12.5 g/dl (12.0-16.0); MEAN CELL VOLUME 88.8 fl (81.0-99.0); MEAN CORPUSCULAR HGB 28.6 pg (27.0-31.0); MEAN CORPUSCULAR HGB CONC 32.2 g/dl (33.0-37.0); MEAN PLATELET VOLUME 9.1 fl (9.6-12.3); PLATELET COUNT AUTOMATED 234 10*3/uL (130-400); RED BLOOD COUNT 4.37 10*6/uL (4.10-5.10); RED CELL DISTRI WIDTH 14.2 % (0-14.5); WHITE BLOOD COUNT 4.3 10*3/uL (4.8-10.8)
[2018-03-28 09:32] LABS: BASOPHILS 2 % (0-1); PLATELET SUFFICIENCY NORMAL (NORMAL); TOTAL CELLS COUNTED 100 #CELLS
[2018-03-28 09:36] LABS: ALBUMIN 3.4 gm/dl (3.1-4.5); CREATININE 1.31 mg/dL (0.55-1.02); POTASSIUM 4.6 mmol/L (3.5-5.1); TOTAL PROTEIN 6.3 gm/dL (6.4-8.2); URIC ACID 5.1 mg/dL (2.6-6.0)
[2018-03-28 09:41] LABS: THYROID STIM HORMONE (HS) 2.87 uIU/ml (0.358-4.75)
== END | disposition home or self-care (01) ==
LOC: LAB 08:40
PROVIDERS: Internal Medicine
DX: I12.9 Hypertensive chronic kidney disease with stage 1 through stage 4 chronic kidney disease, or unspecified chronic kidney disease (principal); N18.9 Chronic kidney disease, unspecified; I48.0 Paroxysmal atrial fibrillation; E03.9 Hypothyroidism, unspecified; E78.49 Other hyperlipidemia; E55.9 Vitamin D deficiency, unspecified; M10.9 Gout, unspecified

== ENCOUNTER → 2018-05-22 | Outpatient (CLI) | payer OTHER ==
[~2018-05-22] MED LIST changes: +TOBRAMYCIN 5 ML5 M1 OPH
[2018-05-22 09:40] LABS: HEMATOCRIT 38.9 % (37.0-47.0); HEMOGLOBIN 12.4 g/dl (12.0-16.0); MEAN CELL VOLUME 89.4 fl (81.0-99.0); MEAN CORPUSCULAR HGB 28.5 pg (27.0-31.0); MEAN CORPUSCULAR HGB CONC 31.9 g/dl (33.0-37.0); MEAN PLATELET VOLUME 9.4 fl (9.6-12.3); PLATELET COUNT AUTOMATED 244 10*3/uL (130-400); RED BLOOD COUNT 4.35 10*6/uL (4.10-5.10); RED CELL DISTRI WIDTH 14.1 % (0-14.5); WHITE BLOOD COUNT 3.8 10*3/uL (4.8-10.8)
[2018-05-22 10:02] LABS: INTERNATIONAL NORM RATIO 2.3 (2.0-3.5)
[2018-05-22 10:04] LABS: CREATININE 1.51 mg/dL (0.55-1.02); PHOSPHOROUS 3.6 mg/dL (2.5-4.9); POTASSIUM 3.6 mmol/L (3.5-5.1); URIC ACID 5.9 mg/dL (2.6-6.0)
[2018-05-22 10:17] LABS: PTH INTACT 74.6 pg/mL (18.5-88.0); VITAMIN D, 25-HYDROXY 35.3 ng/mL (30-100)
[2018-05-22 10:26] LABS: BASOPHILS 1 % (0-1); OVALOCYTES FEW; PLATELET SUFFICIENCY NORMAL (NORMAL); TOTAL CELLS COUNTED 100 #CELLS
== END | disposition home or self-care (01) ==
LOC: LAB 08:27
PROVIDERS: Internal Medicine; Internal Medicine Nephrology
DX: I12.9 Hypertensive chronic kidney disease with stage 1 through stage 4 chronic kidney disease, or unspecified chronic kidney disease (principal); N18.4 Chronic kidney disease, stage 4 (severe); D63.1 Anemia in chronic kidney disease; N25.81 Secondary hyperparathyroidism of renal origin; E55.9 Vitamin D deficiency, unspecified; Q61.3 Polycystic kidney, unspecified; Z94.0 Kidney transplant status

== ENCOUNTER → 2018-05-23 | Outpatient (CLI) | payer OTHER ==
[~2018-05-23] MED LIST changes: -TOBRAMYCIN 5 ML5 M1 OPH
[2018-05-23 13:58] LABS: BILIRUBIN NEGATIVE (NEGATIVE); BLOOD NEGATIVE (NEGATIVE); CLARITY SL CLOUDY (CLEAR); COLOR YELLOW (YELLOW); GLUCOSE 2+ (NEGATIVE); KETONE NEGATIVE (NEGATIVE); LEUKO ESTERASE NEGATIVE (NEGATIVE); NITRITE NEGATIVE (NEGATIVE); SPECIFIC GRAVITY 1.025 (1.005-1.030); UROBILINOGEN 0.2 E.U./dl (0.2-1.0)
[2018-05-23 14:11] LABS: BACTERIA 2+; MUCOUS TRACE; RBC 0-2 rbc/hpf (0-2)
== END | disposition home or self-care (01) ==
LOC: LAB 02:43
PROVIDERS: Internal Medicine Nephrology
DX: I12.9 Hypertensive chronic kidney disease with stage 1 through stage 4 chronic kidney disease, or unspecified chronic kidney disease (principal); N18.4 Chronic kidney disease, stage 4 (severe); E55.9 Vitamin D deficiency, unspecified; N25.81 Secondary hyperparathyroidism of renal origin; D63.1 Anemia in chronic kidney disease; Z94.0 Kidney transplant status

== ENCOUNTER → 2018-06-19 | Outpatient (CLI) | payer OTHER ==
[~2018-06-19] MED LIST changes: +TOBRAMYCIN 5 ML5 M1 OPH
[2018-06-19 09:32] LABS: CREATININE 1.32 mg/dL (0.55-1.02); POTASSIUM 3.8 mmol/L (3.5-5.1)
[2018-06-19 09:33] LABS: INTERNATIONAL NORM RATIO 2.6 (2.0-3.5)
== END | disposition home or self-care (01) ==
LOC: LAB 08:27
PROVIDERS: Internal Medicine; Internal Medicine Nephrology
DX: I12.9 Hypertensive chronic kidney disease with stage 1 through stage 4 chronic kidney disease, or unspecified chronic kidney disease (principal); N18.4 Chronic kidney disease, stage 4 (severe); I48.0 Paroxysmal atrial fibrillation; D63.1 Anemia in chronic kidney disease; N25.81 Secondary hyperparathyroidism of renal origin; E55.9 Vitamin D deficiency, unspecified; Q61.3 Polycystic kidney, unspecified; Z94.0 Kidney transplant status

== ENCOUNTER → 2018-08-23 | Outpatient (CLI) | payer OTHER ==
[2018-08-23 14:50] LABS: INTERNATIONAL NORM RATIO 2.7 (2.0-3.5)
== END | disposition home or self-care (01) ==
LOC: LAB 13:46
PROVIDERS: Internal Medicine
DX: I48.0 Paroxysmal atrial fibrillation (principal)

== ENCOUNTER → 2018-09-04 | Outpatient (CLI) | payer OTHER ==
[2018-09-04 12:18] LABS: INTERNATIONAL NORM RATIO 2.9 (2.0-3.5)
== END | disposition home or self-care (01) ==
LOC: LAB 11:30
PROVIDERS: Internal Medicine
DX: I48.0 Paroxysmal atrial fibrillation (principal)

== ENCOUNTER → 2018-09-11 | Outpatient (CLI) | payer OTHER | END | disposition home or self-care (01) | LOC: LAB 10:08 | PROVIDERS: Internal Medicine | DX: I48.0 Paroxysmal atrial fibrillation (principal) ==

== ENCOUNTER → 2018-09-25 | Outpatient (CLI) | payer OTHER ==
[2018-09-25 12:18] LABS: INTERNATIONAL NORM RATIO 2.3 (2.0-3.5)
== END | disposition home or self-care (01) ==
LOC: LAB 11:26
PROVIDERS: Internal Medicine
DX: I48.0 Paroxysmal atrial fibrillation (principal)

== ENCOUNTER → 2018-10-05 | Outpatient (CLI) | payer OTHER ==
[2018-10-05 10:04] LABS: HEMATOCRIT 38.3 % (37.0-47.0); HEMOGLOBIN 12.3 g/dl (12.0-16.0); MEAN CELL VOLUME 89.3 fl (81.0-99.0); MEAN CORPUSCULAR HGB 28.7 pg (27.0-31.0); MEAN CORPUSCULAR HGB CONC 32.1 g/dl (33.0-37.0); MEAN PLATELET VOLUME 9.9 fl (9.6-12.3); PLATELET COUNT AUTOMATED 209 10*3/uL (130-400); RED BLOOD COUNT 4.29 10*6/uL (4.10-5.10); WHITE BLOOD COUNT 3.9 10*3/uL (4.8-10.8)
[2018-10-05 10:28] LABS: ALBUMIN 3.5 gm/dl (3.1-4.5); CREATININE 1.61 mg/dL (0.55-1.02); POTASSIUM 3.8 mmol/L (3.5-5.1); TOTAL PROTEIN 6.3 gm/dL (6.4-8.2); URIC ACID 6.4 mg/dL (2.6-6.0)
[2018-10-05 10:33] LABS: THYROID STIM HORMONE (HS) 2.92 uIU/ml (0.358-4.75)
[2018-10-05 10:40] LABS: INTERNATIONAL NORM RATIO 2.2 (2.0-3.5)
[2018-10-05 11:01] LABS: ATYPICAL LYMPHS 1 % (0-0); BASOPHILS 2 % (0-1); PLATELET SUFFICIENCY NORMAL (NORMAL); TOTAL CELLS COUNTED 100 #CELLS
== END | disposition home or self-care (01) ==
LOC: LAB 09:03
PROVIDERS: Internal Medicine
DX: I12.9 Hypertensive chronic kidney disease with stage 1 through stage 4 chronic kidney disease, or unspecified chronic kidney disease (principal); E11.22 Type 2 diabetes mellitus with diabetic chronic kidney disease; N18.9 Chronic kidney disease, unspecified; I48.0 Paroxysmal atrial fibrillation; E78.49 Other hyperlipidemia; E03.9 Hypothyroidism, unspecified; E55.9 Vitamin D deficiency, unspecified; M10.9 Gout, unspecified; Z94.0 Kidney transplant status

== ENCOUNTER → 2018-11-06 | Outpatient (CLI) | payer OTHER ==
[2018-11-06 10:48] LABS: INTERNATIONAL NORM RATIO 3.5 (2.0-3.5)
== END | disposition home or self-care (01) ==
LOC: LAB 09:36
PROVIDERS: Internal Medicine
DX: I48.0 Paroxysmal atrial fibrillation (principal)

== ENCOUNTER → 2018-11-13 | Outpatient (CLI) | payer OTHER | END | disposition home or self-care (01) | LOC: LAB 08:36 | PROVIDERS: Internal Medicine | DX: I48.0 Paroxysmal atrial fibrillation (principal) ==

== ENCOUNTER 2018-11-30 11:45 | Emergency (ER) | payer OTHER ==
[~2018-11-30] VITALS: Ht 167.6 cm; Wt 93.0 kg
[~2018-11-30 11:45] MED LIST changes: -TOBRAMYCIN 5 ML5 M1 OPH
[2018-11-30] MEDS ORDERED: TOBRAMYCIN 5 ML5 M1 OPH (12:17)
== END 2018-11-30 12:50 | disposition home or self-care (01) ==
LOC: ED 11:45
DX: H11.31 Conjunctival hemorrhage, right eye (principal); Z79.899 Other long term (current) drug therapy; Z79.01 Long term (current) use of anticoagulants; Z88.8 Allergy status to other drugs, medicaments and biological substances; Z88.6 Allergy status to analgesic agent; Z88.0 Allergy status to penicillin; Z91.041 Radiographic dye allergy status; Z90.49 Acquired absence of other specified parts of digestive tract; Z86.73 Personal history of transient ischemic attack (TIA), and cerebral infarction without residual deficits; Z94.0 Kidney transplant status

== ENCOUNTER → 2018-12-10 | Outpatient (CLI) | payer OTHER ==
[~2018-12-10] MED LIST changes: +TOBRAMYCIN 5 ML5 M1 OPH
[2018-12-10 10:18] LABS: INTERNATIONAL NORM RATIO 1.6 (2.0-3.5)
== END | disposition home or self-care (01) ==
LOC: LAB 09:21
PROVIDERS: Internal Medicine
DX: I48.0 Paroxysmal atrial fibrillation (principal)

== ENCOUNTER → 2018-12-13 | Outpatient (CLI) | payer OTHER ==
[2018-12-13 12:42] LABS: INTERNATIONAL NORM RATIO 1.4 (2.0-3.5)
== END | disposition home or self-care (01) ==
LOC: LAB 11:31
PROVIDERS: Internal Medicine
DX: I48.0 Paroxysmal atrial fibrillation (principal)

== ENCOUNTER → 2018-12-21 | Outpatient (CLI) | payer OTHER ==
[2018-12-21 09:44] LABS: HEMATOCRIT 36.3 % (37.0-47.0); HEMOGLOBIN 11.5 g/dl (12.0-16.0); MEAN CELL VOLUME 90.3 fl (81.0-99.0); MEAN CORPUSCULAR HGB 28.6 pg (27.0-31.0); MEAN CORPUSCULAR HGB CONC 31.7 g/dl (33.0-37.0); PLATELET COUNT AUTOMATED 228 10*3/uL (130-400); RED BLOOD COUNT 4.02 10*6/uL (4.10-5.10); RED CELL DISTRI WIDTH 14.2 % (0-14.5); WHITE BLOOD COUNT 3.7 10*3/uL (4.8-10.8)
[2018-12-21 10:06] LABS: CREATININE 2.38 mg/dL (0.55-1.02); POTASSIUM 4.2 mmol/L (3.5-5.1)
[2018-12-21 10:09] LABS: INTERNATIONAL NORM RATIO 4.2 (2.0-3.5)
[2018-12-21 10:19] LABS: PLATELET SUFFICIENCY NORMAL (NORMAL); TOTAL CELLS COUNTED 100 #CELLS
[2018-12-21 10:21] LABS: BURR CELLS FEW; OVALOCYTES FEW
[2018-12-21 13:40] LABS: PTH INTACT 115.1 pg/mL (18.5-88.0)
[2018-12-21 17:12] LABS: BILIRUBIN NEGATIVE (NEGATIVE); BLOOD NEGATIVE (NEGATIVE); CLARITY SL CLOUDY (CLEAR); COLOR YELLOW (YELLOW); GLUCOSE NEGATIVE (NEGATIVE); KETONE NEGATIVE (NEGATIVE); LEUKO ESTERASE 1+ (NEGATIVE); NITRITE NEGATIVE (NEGATIVE); PH 5.5 (5.0-9.0); SPECIFIC GRAVITY 1.025 (1.005-1.030); UROBILINOGEN 0.2 E.U./dl (0.2-1.0)
[2018-12-21 17:21] LABS: BACTERIA 3+
[2018-12-22 09:05] LABS: CREATININE,URINE 205.7 mg/dL (Not Estab.)
== END | disposition home or self-care (01) ==
LOC: LAB 08:59
PROVIDERS: Internal Medicine; Internal Medicine Nephrology
DX: N25.81 Secondary hyperparathyroidism of renal origin (principal); I12.9 Hypertensive chronic kidney disease with stage 1 through stage 4 chronic kidney disease, or unspecified chronic kidney disease; N18.4 Chronic kidney disease, stage 4 (severe); Q61.3 Polycystic kidney, unspecified; E55.9 Vitamin D deficiency, unspecified; I48.0 Paroxysmal atrial fibrillation; D63.1 Anemia in chronic kidney disease; Z94.0 Kidney transplant status

== ENCOUNTER 2019-01-16 02:04 | Inpatient (IN) | payer OTHER ==
[~2019-01-16] VITALS: Ht 165.1 cm; Wt 84.0 kg
[2019-01-16] VITALS (9 sets, daily range): BP systolic 80–121; BP diastolic 54–74
[2019-01-16] MEDS ORDERED: ELIQUIS2.5 M1 PO (02:10)
--- NOTE | 2019-01-16 03:00 | NUR ---
[ATIENT IS RESTING IN BED. GLUCOSE IS STILL LOW AT 51. DR. TELLEZ NOTIFIED.
[2019-01-16 03:05] LABS: HEMATOCRIT 33.8 % (37.0-47.0); HEMOGLOBIN 10.7 g/dl (12.0-16.0); MEAN CELL VOLUME 92.1 fl (81.0-99.0); MEAN CORPUSCULAR HGB 29.2 pg (27.0-31.0); MEAN CORPUSCULAR HGB CONC 31.7 g/dl (33.0-37.0); MEAN PLATELET VOLUME 9.3 fl (9.6-12.3); PLATELET COUNT AUTOMATED 218 10*3/uL (130-400); RED BLOOD COUNT 3.67 10*6/uL (4.10-5.10); RED CELL DISTRI WIDTH 14.1 % (0-14.5)
[2019-01-16 03:22] LABS: ALBUMIN 3.4 gm/dl (3.1-4.5); CREATININE 2.71 mg/dL (0.55-1.02); POTASSIUM 4.3 mmol/L (3.5-5.1); TOTAL PROTEIN 5.9 gm/dL (6.4-8.2)
[2019-01-16 03:39] LABS: TOTAL CELLS COUNTED 100 #CELLS
[2019-01-16 03:40] LABS: PLATELET SUFFICIENCY NORMAL (NORMAL)
--- NOTE | 2019-01-16 04:00 | NUR ---
PATIENT WAS UNABLE TO EAT MUCH OF HER FOOD AND STATES SHE FEELS SICK. DR. TELLEZ NOTIFIED AND D10W WAS ORDERED FOR THE PATIENT.
--- NOTE | 2019-01-16 05:00 | NUR ---
PATIENT BP WAS 80/[address] VELASCO NOTIFIED. FLUIDS ORDERED FOR THE PATIENT AND PATIENT IS ALSO TO BE MOVED TO THE ICCU INSTEAD OF TELE. PATIENT STILL A/OX4 AT THIS TIME. PATIENT STILL WITH MILD STOMACH PAINS.
--- NOTE | 2019-01-16 05:50 | NUR ---
A 69, admitted to ICCU, under the services of NICOLÁS Santamaria DO with a diagnosis of HYPOGLYCEMIA. Chief complaint is NAUSEA/DIARRHEA. Patient arrived via stretcher from ER. Monitor applied. Initial assessment completed. Vital signs taken and recorded. NICOLÁS SANTAMARIA DO notified of admission to the unit. Orders received. See assessment for past medical history, medications and allergies. Patient and/or family oriented to unit. [facility] ICCU visitation policy reviewed. Clothing/patient valuable form completed. PAMELA GARCIA
[2019-01-16 06:40] LABS: HEMATOCRIT 32.4 % (37.0-47.0); MEAN CORPUSCULAR HGB 28.1 pg (27.0-31.0); MEAN CORPUSCULAR HGB CONC 30.9 g/dl (33.0-37.0); MEAN PLATELET VOLUME 10.1 fl (9.6-12.3); PLATELET COUNT AUTOMATED 218 10*3/uL (130-400); RED BLOOD COUNT 3.56 10*6/uL (4.10-5.10); RED CELL DISTRI WIDTH 14.1 % (0-14.5)
[2019-01-16] MEDS ORDERED: ZYLOPRIM100 MG PO (06:42)
[2019-01-16] MEDS ORDERED: LASIX20 MG PO (06:42)
[2019-01-16] MEDS ORDERED: PARICALCITOL1 MC1 PO (06:43)
[2019-01-16] MEDS ORDERED: IMODIUM A-D2 M2 PO (06:46)
[2019-01-16] MEDS ORDERED: AMARYL4 MG PO (06:47)
[2019-01-16] MEDS ORDERED: AMARYL2 MG PO (06:50)
[2019-01-16] MEDS ORDERED: COREG25 MG PO (06:52)
[2019-01-16] MEDS ORDERED: TACROLIMUS1 M1 PO (06:54)
[2019-01-16] MEDS ORDERED: POTASSIUM CHLO10 ME4 PO (06:59)
[2019-01-16] MEDS ORDERED: ZOFRAN4 MG PO (07:00)
[2019-01-16] MEDS ORDERED: TOBREX OPHTH O3.5 GM T (07:02)
--- NOTE | 2019-01-16 07:12 | NUR ---
HOME MED REQ COMPLETED.
--- NOTE | 2019-01-16 07:12 | NUR ---
CONTACTED DR. CAN FOR CONSULT, HE WILL SEE PATIENT LATER TODAY.
[2019-01-16 07:14] LABS: ACT PARTIAL THROMBO TIME 26.7 SECONDS (20.0-32.1); INTERNATIONAL NORM RATIO 1.1 (2.0-3.5)
[2019-01-16 07:21] LABS: ALBUMIN 3.2 gm/dl (3.1-4.5); POTASSIUM 4.2 mmol/L (3.5-5.1)
[2019-01-16 07:36] LABS: CREATININE 2.65 mg/dL (0.55-1.02); PHOSPHOROUS 3.8 mg/dL (2.5-4.9); THYROID STIM HORMONE (HS) 1.84 uIU/ml (0.358-4.75); TOTAL PROTEIN 5.6 gm/dL (6.4-8.2)
[2019-01-16 08:05] LABS: TOTAL CELLS COUNTED 100 #CELLS
[2019-01-16 08:06] LABS: OVALOCYTES FEW; PLATELET SUFFICIENCY NORMAL (NORMAL)
[2019-01-16] MEDS ORDERED: LEVEMIR100 UNIT/1 IV (08:23)
[2019-01-16] MEDS ORDERED: SYNTHROID,LEVO75 MCG PO (08:23)
[2019-01-16 10:55] LABS: BILIRUBIN NEGATIVE (NEGATIVE); BLOOD NEGATIVE (NEGATIVE); CLARITY CLEAR (CLEAR); COLOR YELLOW (YELLOW); GLUCOSE NEGATIVE (NEGATIVE); KETONE NEGATIVE (NEGATIVE); LEUKO ESTERASE TRACE (NEGATIVE); NITRITE NEGATIVE (NEGATIVE); UROBILINOGEN 0.2 E.U./dl (0.2-1.0)
[2019-01-16 11:15] LABS: CALCIUM OXALATE CRYSTALS 1+; YEAST TRACE
--- NOTE | 2019-01-16 11:21 | NUR ---
DR FARRAR CONSULTED. ORDERS RECIEVED AND CARRIED OUT.
--- NOTE | 2019-01-16 15:54 | NUR ---
INFORMED CONSENT AND ANESTHESIA QUESTIONNAIRE COMPLETED FOR EGD ON MONDAY.
--- NOTE | 2019-01-16 19:12 | NUR ---
MEDICATED PT PER PRN ORDER WITH MYLICON FOR C/O "GAS".
--- NOTE | 2019-01-16 20:04 | NUR ---
URINE SPECIMENS OBTAINED AND SENT ORDERED. BS 175 AND NOT COVERED DIRECTED BY DR NAZARIO ( TO ONLY COVER IF >190). MYLICON NOT YET EFFECTIVE FOR LOWER ABDOMINAL DISCOMFORT.
[2019-01-16 20:05] LABS: URINE CHLORIDE, RANDOM 32 mmol/L
--- NOTE | 2019-01-16 21:21 | NUR ---
SPOKE WITH HOMERO ARAIZA AND LENI ABOUT PT WITH LOWER ABDOMINAL DISCOMFORT AND HER REQUEST FOR PAIN MEDICATION. ORDERS RECEIVED.
--- NOTE | 2019-01-16 21:27 | NUR ---
I CALLED DR FARRAR, PER REQUEST, TO OK PO BARIUM WITH CT SCAN AND SHE STATES IT IS OK FOR THE PO. CT NOTIFIED.
--- NOTE | 2019-01-16 21:36 | NUR ---
DR ARAIZA UPDATED ON PT COMPLAINT OF ABDOMINAL PAIN AND THAT PT TO HAVE CT ABDOMEN AND PELVIS WITHOUT IV CONTRAST AND BARIUM ( PT REFUSES BARIUM DUE TO ALLERGY AND THAT SHE WAS TOLD TO NEVER TAKE BARIUM AGAIN BY ).
--- NOTE | 2019-01-16 22:20 | NUR ---
BACK FROM CT SCAN. DILAUDID GIVEN PER PT REQUEST FOR LOWER ABDOMINAL PAIN GREATER ON LT SIDE.
--- NOTE | 2019-01-16 23:46 | NUR ---
BS DONE AND ASSESSMENT COMPLETE. PT UP TO BSC. PM CARE DONE. PT STATES SHE "FEELS SO MUCH BETTER SINCE THAT SHOT. I CAN TELL IT'S STILL THERE BUT IT REALLY HELPED." VSS. DR ARAIZA WAS NOTIFIED EARLIER THAT CT RESULTS WERE BACK.
[2019-01-17] VITALS: BP 113/53
[2019-01-17 04:00] VITALS: BP 116/60
[2019-01-17 04:44] LABS: HEMATOCRIT 32.4 % (37.0-47.0); HEMOGLOBIN 9.9 g/dl (12.0-16.0); MEAN CELL VOLUME 93.6 fl (81.0-99.0); MEAN CORPUSCULAR HGB 28.6 pg (27.0-31.0); MEAN CORPUSCULAR HGB CONC 30.6 g/dl (33.0-37.0); MEAN PLATELET VOLUME 9.5 fl (9.6-12.3); PLATELET COUNT AUTOMATED 189 10*3/uL (130-400); RED BLOOD COUNT 3.46 10*6/uL (4.10-5.10); RED CELL DISTRI WIDTH 14.4 % (0-14.5); WHITE BLOOD COUNT 3.2 10*3/uL (4.8-10.8)
[2019-01-17 05:11] LABS: CREATININE 1.91 mg/dL (0.55-1.02); POTASSIUM 4.8 mmol/L (3.5-5.1)
[2019-01-17 05:13] LABS: BURR CELLS FEW; PLATELET SUFFICIENCY NORMAL (NORMAL); TOTAL CELLS COUNTED 100 #CELLS
[2019-01-17 05:14] LABS: OVALOCYTES FEW
[2019-01-17 08:00] VITALS: BP 118/59
--- NOTE | 2019-01-17 11:50 | NUR ---
TECHNICIAN SUBMARINE CABLE EQUIPMENT GRANT NOTIFIED OF TRANSFER IN PROCESS ORDER.
[2019-01-17 12:00] VITALS: BP 125/65
--- NOTE | 2019-01-17 15:00 | NUR ---
Bottom Brusher in to talk to patient. Patient states lives at home with her . There are 3 steps in the home. Physician: Dr. Toni Hobbs Pharmacy: [facility] Home health services: she has a nurse casework supervisor from [facility] that visits her every week to every other week Patient's level of ADLs: MINIMAL ASSIST Patient has working utilities: yes DME: walker, wheelchair, BSC, rollator, would like an electric scooter or a light weight wheelchair Follow-up physician's appointment after d/c: will be made by the hospitalist nurse director upon discharge Does patient want to access PORTAL?: no Discharge plan discussed with patient. She lives at home with her . She is independent in her ADLs and ambulates with a walker or gets around in a wheelchair. She would like to see about getting an electric scooter or a light weight wheelchair for when she goes grocery shopping as her back causes her pain when she is walking for an extended period of time. Discussed home health care services and she states she has a nurse casework supervisor from [facility] that comes every week or every other week. When medically stable she will be discharged to home. . YAW LIZ
[2019-01-17 16:00] VITALS: BP 127/92
[2019-01-17 20:00] VITALS: BP 127/70
--- NOTE | 2019-01-17 22:28 | NUR ---
PATIENT MOVED TO 517, REPORT GIVEN TO DEANNE MATIAS.
[2019-01-18] VITALS (9 sets, daily range): BP systolic 114–144; BP diastolic 59–74
--- NOTE | 2019-01-18 03:00 | NUR ---
24 HR chart check completed.
[2019-01-18 06:15] LABS: HEMATOCRIT 30.1 % (37.0-47.0); HEMOGLOBIN 9.2 g/dl (12.0-16.0); MEAN CELL VOLUME 91.8 fl (81.0-99.0); MEAN CORPUSCULAR HGB CONC 30.6 g/dl (33.0-37.0); MEAN PLATELET VOLUME 9.8 fl (9.6-12.3); PLATELET COUNT AUTOMATED 177 10*3/uL (130-400); RED BLOOD COUNT 3.28 10*6/uL (4.10-5.10); RED CELL DISTRI WIDTH 14.3 % (0-14.5)
[2019-01-18 06:39] LABS: CREATININE 1.57 mg/dL (0.55-1.02); POTASSIUM 4.6 mmol/L (3.5-5.1)
[2019-01-18 06:47] LABS: TOTAL CELLS COUNTED 100 #CELLS
[2019-01-18 06:49] LABS: BURR CELLS FEW; PLATELET SUFFICIENCY NORMAL (NORMAL)
[2019-01-18 06:50] LABS: OVALOCYTES FEW
--- NOTE | 2019-01-18 09:00 | NUR ---
Cephalometric Tracer in to see patient. No new needs or request at this time. She would like a lightweight wheelchair for home on discharge. Notified Hospitalist nurse director. When medically stable she will be discharged to home.
[2019-01-19] VITALS: BP 131/77
[2019-01-19 08:00] VITALS: BP 130/88
[2019-01-19 12:00] VITALS: BP 109/74
[2019-01-19] MEDS ORDERED: LEVEMIR FL100 UNIT/1 SC (12:53)
[2019-01-19] MEDS ORDERED: PROTONIX40 MG PO (13:16)
[2019-01-19] MEDS ORDERED: GAVISCON ES TA1 EACH PO (13:16)
--- NOTE | 2019-01-19 14:02 | NUR ---
PATIENT LEAVING HOSPITAL AT THIS TIME. TRANSFERRED TO CAR BY DANNI.
== END 2019-01-19 14:02 | disposition home or self-care (01) | DRG 314 ==
LOC: ED 02:04 → 5E 04:08 → ICCU 04:08 → EDHOLD 04:08 → 4E 04:28 → ICCU 05:26 → 5E 01-17 21:54
PROVIDERS: Emergency Medicine; Family Medicine; Hospitalist; Internal Medicine Nephrology; ADMIT Internal Medicine
PROC: 0DB78ZX Excision of Stomach, Pylorus, Via Natural or Artificial Opening Endoscopic, Diagnostic (ICD-10-PCS; principal; 2019-01-18)
DX: I95.9 Hypotension, unspecified (principal); N17.0 Acute kidney failure with tubular necrosis; K22.10 Ulcer of esophagus without bleeding; B37.0 Candidal stomatitis; E86.0 Dehydration; E11.649 Type 2 diabetes mellitus with hypoglycemia without coma; D64.9 Anemia, unspecified; E03.9 Hypothyroidism, unspecified; K59.00 Constipation, unspecified; R19.7 Diarrhea, unspecified; I48.2 Chronic atrial fibrillation; E11.42 Type 2 diabetes mellitus with diabetic polyneuropathy; E83.42 Hypomagnesemia; D89.9 Disorder involving the immune mechanism, unspecified; K29.70 Gastritis, unspecified, without bleeding; E11.22 Type 2 diabetes mellitus with diabetic chronic kidney disease; I11.0 Hypertensive heart disease with heart failure; N18.3 Chronic kidney disease, stage 3 (moderate); K63.89 Other specified diseases of intestine; E83.51 Hypocalcemia; E66.9 Obesity, unspecified; E78.2 Mixed hyperlipidemia; I50.9 Heart failure, unspecified; Y83.0 Surgical operation with transplant of whole organ as the cause of abnormal reaction of the patient, or of later complication, without mention of misadventure at the time of the procedure; Z79.4 Long term (current) use of insulin; Z79.01 Long term (current) use of anticoagulants; Z88.0 Allergy status to penicillin; Z88.8 Allergy status to other drugs, medicaments and biological substances; Z88.6 Allergy status to analgesic agent; Z91.041 Radiographic dye allergy status; Z90.49 Acquired absence of other specified parts of digestive tract; Z90.710 Acquired absence of both cervix and uterus; Z90.5 Acquired absence of kidney; Z87.891 Personal history of nicotine dependence; Z86.718 Personal history of other venous thrombosis and embolism; Z86.711 Personal history of pulmonary embolism; Z82.49 Family history of ischemic heart disease and other diseases of the circulatory system; Z84.1 Family history of disorders of kidney and ureter; Z88.5 Allergy status to narcotic agent; Z79.899 Other long term (current) drug therapy; Z79.84 Long term (current) use of oral hypoglycemic drugs; Z79.890 Hormone replacement therapy; Z79.52 Long term (current) use of systemic steroids; Y92.89 Other specified places as the place of occurrence of the external cause; Z68.30 Body mass index [BMI] 30.0-30.9, adult

== ENCOUNTER → 2019-01-21 | Outpatient (CLI) | payer OTHER ==
[~2019-01-21] MED LIST changes: +AMARYL2 MG PO; +AMARYL4 MG PO; +BACTRIM 400-801 EACH PO; +COREG25 MG PO; +DAPSONE100 MG PO; +ELIQUIS2.5 M1 PO; +GAVISCON ES TA1 EACH PO; +IMODIUM A-D2 M2 PO; +LASIX20 MG PO; +LEVEMIR FL100 UNIT/1 SC; +LEVEMIR100 UNIT/1 IV; +MYCOPHENOLIC A180 M1 PO; +NOVAPLUS TACROLI1 MG PO; +PARICALCITOL1 MC1 PO; +POTASSIUM CHLO10 ME4 PO; +PROTONIX40 MG PO; +SYNTHROID,LEVO75 MCG PO; +TACROLIMUS1 M1 PO; +TOBREX OPHTH O3.5 GM T; +VALTREX1000 MG PO; +VANCOCIN250 M1 PO; +VANCOMYCIN HCL250 MG PO; +ZOFRAN4 MG PO; +ZYLOPRIM100 MG PO
[2019-01-21 09:08] LABS: HEMATOCRIT 30.9 % (37.0-47.0); HEMOGLOBIN 9.8 g/dl (12.0-16.0); MEAN CELL VOLUME 90.1 fl (81.0-99.0); MEAN CORPUSCULAR HGB 28.6 pg (27.0-31.0); MEAN CORPUSCULAR HGB CONC 31.7 g/dl (33.0-37.0); MEAN PLATELET VOLUME 10.1 fl (9.6-12.3); PLATELET COUNT AUTOMATED 202 10*3/uL (130-400); RED BLOOD COUNT 3.43 10*6/uL (4.10-5.10); RED CELL DISTRI WIDTH 14.1 % (0-14.5); WHITE BLOOD COUNT 3.1 10*3/uL (4.8-10.8)
[2019-01-21 09:33] LABS: CREATININE 1.88 mg/dL (0.55-1.02); POTASSIUM 4.1 mmol/L (3.5-5.1)
[2019-01-21 09:55] LABS: BILIRUBIN NEGATIVE (NEGATIVE); BLOOD NEGATIVE (NEGATIVE); CLARITY CLEAR (CLEAR); COLOR YELLOW (YELLOW); GLUCOSE NEGATIVE (NEGATIVE); KETONE NEGATIVE (NEGATIVE); LEUKO ESTERASE 1+ (NEGATIVE); NITRITE NEGATIVE (NEGATIVE); SPECIFIC GRAVITY <= 1.005 (1.005-1.030); UROBILINOGEN 0.2 E.U./dl (0.2-1.0)
[2019-01-21 10:27] LABS: RBC 0-2 rbc/hpf (0-2)
[2019-01-21 10:39] LABS: VITAMIN D, 25-HYDROXY 49.4 ng/mL (30-100)
[2019-01-21 10:40] LABS: PTH INTACT 97.1 pg/mL (18.5-88.0); TOTAL CELLS COUNTED 100 #CELLS
[2019-01-21 10:41] LABS: BURR CELLS FEW; OVALOCYTES FEW; PLATELET SUFFICIENCY NORMAL (NORMAL); POLYCHROMASIA SLIGHT; ROULEAUX SLIGHT
[2019-01-22 11:11] LABS: CREATININE,URINE 42.9 mg/dL (Not Estab.); MICRO ALBUMIN/CRE RATIO 7.9 (0.0-30.0)
== END | disposition home or self-care (01) ==
LOC: LAB 08:22
PROVIDERS: Internal Medicine Nephrology
DX: I12.9 Hypertensive chronic kidney disease with stage 1 through stage 4 chronic kidney disease, or unspecified chronic kidney disease (principal); N18.4 Chronic kidney disease, stage 4 (severe); N25.81 Secondary hyperparathyroidism of renal origin; Q61.3 Polycystic kidney, unspecified; D63.1 Anemia in chronic kidney disease; E55.9 Vitamin D deficiency, unspecified; Z94.0 Kidney transplant status

== ENCOUNTER → 2019-02-05 | Outpatient (CLI) | payer OTHER ==
[~2019-02-05] MED LIST changes: -DAPSONE100 MG PO; -NOVAPLUS TACROLI1 MG PO; -VALTREX1000 MG PO; -VANCOCIN250 M1 PO; -VANCOMYCIN HCL250 MG PO
[2019-02-05 09:59] LABS: CREATININE 1.99 mg/dL (0.55-1.02); POTASSIUM 4.5 mmol/L (3.5-5.1)
== END | disposition home or self-care (01) ==
LOC: LAB 08:40
PROVIDERS: Internal Medicine Nephrology
DX: N18.9 Chronic kidney disease, unspecified (principal)

== ENCOUNTER 2019-03-06 12:07 | Inpatient (IN) | payer OTHER ==
[~2019-03-06] VITALS: Ht 165.1 cm; Wt 85.9 kg
[~2019-03-06 12:07] MED LIST changes: -BACTRIM 400-801 EACH PO; -MYCOPHENOLIC A180 M1 PO
[2019-03-06 12:11] VITALS: BP 90/58
[2019-03-06 12:51] LABS: HEMATOCRIT 29.6 % (37.0-47.0); HEMOGLOBIN 9.5 g/dl (12.0-16.0); MEAN CELL VOLUME 91.9 fl (81.0-99.0); MEAN CORPUSCULAR HGB 29.5 pg (27.0-31.0); MEAN CORPUSCULAR HGB CONC 32.1 g/dl (33.0-37.0); MEAN PLATELET VOLUME 9.8 fl (9.6-12.3); PLATELET COUNT AUTOMATED 200 10*3/uL (130-400); RED BLOOD COUNT 3.22 10*6/uL (4.10-5.10); RED CELL DISTRI WIDTH 13.5 % (0-14.5); WHITE BLOOD COUNT 2.3 10*3/uL (4.8-10.8)
[2019-03-06 13:09] LABS: ALBUMIN 3.2 gm/dl (3.1-4.5); CREATININE 3.49 mg/dL (0.55-1.02); POTASSIUM 4.7 mmol/L (3.5-5.1); TOTAL PROTEIN 5.9 gm/dL (6.4-8.2)
[2019-03-06 13:14] LABS: ATYPICAL LYMPHS 2 % (0-0); BASOPHILS 1 % (0-1); OVALOCYTES MODERATE; PLATELET SUFFICIENCY NORMAL (NORMAL); ROULEAUX MODERATE; TOTAL CELLS COUNTED 100 #CELLS
[2019-03-06 13:15] LABS: ACANTHOCYTES FEW; POLYCHROMASIA SLIGHT
[2019-03-06 13:49] VITALS: BP 96/59
--- NOTE | 2019-03-06 14:05 | NUR ---
5E NOTIFIED THAT THE PHYSICIANS ARE IN EXAM ROOM 2013 @ THIS TIME AND PT WILL BE TRANSFERRED TO THE FLOOR AFTER EVALUATION,PT STILL UNABLE TO PROVIDE URINE SAMPLE,FAMILY @ BEDSIDE AND CALL LIGHT WITHIN REACH.
--- NOTE | 2019-03-06 14:43 | NUR ---
A 69, admitted to 5E, under the services of ALEX Arredondo DO with a diagnosis of AFIB PER EKG W/ PVC. Chief complaint is L FLANK PAIN. Patient arrived via ambulatory from ER. Monitor applied. Initial assessment completed. Vital signs taken and recorded. ALEX ARREDONDO DO notified of admission to the unit. Orders received. See assessment for past medical history, medications and allergies. Patient and/or family oriented to unit. [address] visitation policy reviewed. Clothing/patient valuable form completed. VENUS GIBSON
--- NOTE | 2019-03-06 14:43 | NUR ---
A 69, admitted to 5E, under the services of ALEX Arredondo DO with a diagnosis of LEFT UPPER FLANK PAIN. Chief complaint is LEFT FLANK PAIN W/ BRUISING NOTED. Patient arrived via wheel chair from ER. Monitor applied. Initial assessment completed. Vital signs taken and recorded. ALEX ARREDONDO DO notified of admission to the unit. Orders received. See assessment for past medical history, medications and allergies. Patient and/or family oriented to unit. [address] visitation policy reviewed. Clothing/patient valuable form completed. VENUS GIBSON
--- NOTE | 2019-03-06 14:43 | NUR ---
A 69, admitted to 5E, under the services of ALEX Arredondo DO with a diagnosis of CHEST PAIN R/O UT. Chief complaint is L FLANK PAIN. Patient arrived via stretcher from ER. Monitor applied. Initial assessment completed. Vital signs taken and recorded. ALEX ARREDONDO DO notified of admission to the unit. Orders received. See assessment for past medical history, medications and allergies. Patient and/or family oriented to unit. [address] visitation policy reviewed. Clothing/patient valuable form completed. VENUS GIBSON
[2019-03-06 16:00] VITALS: BP 113/64
[2019-03-06] MEDS ORDERED: MYCOPHENOLIC A180 M1 PO (16:10)
[2019-03-06] MEDS ORDERED: BACTRIM 400-801 EACH PO (16:19)
--- NOTE | 2019-03-06 17:14 | NUR ---
DR FARRAR HERE TO SEE PT.
[2019-03-06 19:09] LABS: BILIRUBIN NEGATIVE (NEGATIVE); BLOOD NEGATIVE (NEGATIVE); CLARITY SL CLOUDY (CLEAR); COLOR YELLOW (YELLOW); GLUCOSE NEGATIVE (NEGATIVE); KETONE NEGATIVE (NEGATIVE); LEUKO ESTERASE NEGATIVE (NEGATIVE); NITRITE NEGATIVE (NEGATIVE); SPECIFIC GRAVITY 1.015 (1.005-1.030); UROBILINOGEN 0.2 E.U./dl (0.2-1.0)
[2019-03-06 19:15] LABS: BACTERIA TRACE; WBC 0-2 wbc/hpf (0-5)
[2019-03-06 20:00] VITALS: BP 109/51
[2019-03-07] VITALS: BP 111/90
[2019-03-07 08:00] VITALS: BP 100/50
--- NOTE | 2019-03-07 08:18 | NUR ---
DR GRANT NOTIFIED OF AFIB WITH RVR AT 122. PT DIAPHORETIC WITH BP AT 138/86.
[2019-03-07 08:19] LABS: HEMATOCRIT 29.4 % (37.0-47.0); HEMOGLOBIN 9.2 g/dl (12.0-16.0); MEAN CELL VOLUME 91.9 fl (81.0-99.0); MEAN CORPUSCULAR HGB 28.8 pg (27.0-31.0); MEAN CORPUSCULAR HGB CONC 31.3 g/dl (33.0-37.0); MEAN PLATELET VOLUME 9.3 fl (9.6-12.3); PLATELET COUNT AUTOMATED 186 10*3/uL (130-400); RED CELL DISTRI WIDTH 13.7 % (0-14.5); WHITE BLOOD COUNT 2.3 10*3/uL (4.8-10.8)
[2019-03-07 08:29] LABS: ACT PARTIAL THROMBO TIME 26.2 SECONDS (20.0-32.1)
[2019-03-07 08:34] LABS: CREATININE 2.82 mg/dL (0.55-1.02); PHOSPHOROUS 3.6 mg/dL (2.5-4.9); POTASSIUM 4.3 mmol/L (3.5-5.1); TOTAL PROTEIN 5.4 gm/dL (6.4-8.2)
[2019-03-07 08:35] LABS: FREE T4 1.09 ng/dl (0.76-1.46)
[2019-03-07 08:40] LABS: THYROID STIM HORMONE (HS) 1.36 uIU/ml (0.358-4.75)
[2019-03-07 08:42] LABS: ROULEAUX MODERATE; TOTAL CELLS COUNTED 100 #CELLS
[2019-03-07 08:43] LABS: ACANTHOCYTES FEW; OVALOCYTES MODERATE; PLATELET SUFFICIENCY NORMAL (NORMAL)
--- NOTE | 2019-03-07 08:51 | NUR ---
MEDICATED WITH IV ZOFRAN ORDERED PER PT REQUEST FOR C/O NAUSEA.
--- NOTE | 2019-03-07 09:00 | NUR ---
Polishing Machine Operator in to talk to patient. Patient states lives at home with . There are few steps in the home. Physician: macey cedeno Pharmacy: [facility] health services: none Patient's level of ADLs: MINIMAL ASSIST Patient has working utilities: all working DME: walker, wheelchair, bedside commode, rollator walker Follow-up physician's appointment after d/c: will be made by hospitalist nurse director upon discharge Does patient want to access PORTAL?: no Discharge plan discussed with patient, she lives at home with , is independent in adls and ambulation with walker, she states she will return home when medically stable, discussed with her VNA and she declined stated she has a nurse from her insurance company that visits frequently, case management will follow EMMA DERAS
--- NOTE | 2019-03-07 09:00 | NUR ---
Hydraulic Rockbreaker Operator in to talk to patient. Patient states lives at home with . There are no steps in the home. Physician: macey cedeno Pharmacy: [facility] health services: none Patient's level of ADLs: MINIMAL ASSIST Patient has working utilities: all working DME: walker, wheelchair, bedside commode rollator walker Follow-up physician's appointment after d/c: no Does patient want to access PORTAL?: no Discharge plan discussed with patient, she lives at home with , she is independent in adls and ambulation with a walker, she has a nurse from her insurance company that visits her frequently, she states she will return home when medically stable discussed with her VNA and she declines any services at this time, case management will follow. EMMA DERAS
--- NOTE | 2019-03-07 09:13 | NUR ---
CONSULT MESSAGE LEFT FOR DR OROZCO.
--- NOTE | 2019-03-07 09:30 | NUR ---
MEDICATION EFFECTIVE FOR NAUSEA.
--- NOTE | 2019-03-07 09:39 | NUR ---
MEDICATED WITH PO DULCOLAX ORDERED PER PT REQUEST FOR C/O CONSTIPATION X1 WEEK.
--- NOTE | 2019-03-07 10:18 | NUR ---
Still refusing po meds. Medicated with iv phenergan as ordered per pt request for c/o nausea.
[2019-03-07 10:31] LABS: VITAMIN D, 25-HYDROXY 44.9 ng/mL (30-100)
--- NOTE | 2019-03-07 10:38 | NUR ---
OK TO GIVE DAVID DAY PER DR WILLOUGHBY.
--- NOTE | 2019-03-07 11:13 | NUR ---
DR FARRAR IN TO SEE PT AND STATES TO CONTINUE SAME TX.
[2019-03-07 12:00] VITALS: BP 98/68
[2019-03-07 16:00] VITALS: BP 120/61
--- NOTE | 2019-03-07 16:23 | NUR ---
MEDICATED WITH IV DILAUDID ORDERED PER PT REQUEST FOR C/O PAIN TO LEFT FLANK RATED 9/10.
[2019-03-07 20:00] VITALS: BP 115/60
[2019-03-08] VITALS: BP 114/53
[2019-03-08 03:19] LABS: URINE CREATININE RANDOM 76.2 mg/dL
[2019-03-08 06:23] LABS: HEMOGLOBIN 8.5 g/dl (12.0-16.0); MEAN CELL VOLUME 94.1 fl (81.0-99.0); MEAN CORPUSCULAR HGB 29.6 pg (27.0-31.0); MEAN CORPUSCULAR HGB CONC 31.5 g/dl (33.0-37.0); MEAN PLATELET VOLUME 9.8 fl (9.6-12.3); PLATELET COUNT AUTOMATED 166 10*3/uL (130-400); RED BLOOD COUNT 2.87 10*6/uL (4.10-5.10); RED CELL DISTRI WIDTH 13.7 % (0-14.5)
[2019-03-08 06:37] LABS: POTASSIUM 4.7 mmol/L (3.5-5.1)
[2019-03-08 06:51] LABS: OVALOCYTES FEW; PLATELET SUFFICIENCY NORMAL (NORMAL); TOTAL CELLS COUNTED 100 #CELLS
[2019-03-08 06:52] LABS: ACANTHOCYTES FEW; ROULEAUX SLIGHT
[2019-03-08 08:00] VITALS: BP 90/44
--- NOTE | 2019-03-08 09:00 | NUR ---
case management visits with patient, she will return home when medically stable, denies any home needs
--- NOTE | 2019-03-08 09:22 | NUR ---
PATIENT C/O NAUSEA. MEDICATED WITH ZOFRAN PER PRN ORDER. WILL CONTINUE TO MONITOR.
--- NOTE | 2019-03-08 09:27 | NUR ---
PATIENT C/O LEFT SIDED FLANK PAIN. RATE 9/10 ON PAIN SCALE. NOTIFIED OF THIS. NEW ORDER RECEIVED FOR NORCO 1 TAB X1 NOW. PATIENT INFORMED OF NEW ORDER. SHE STATED SHE WILL NOT TAKE ANY MEDICINE WITHOUT IT BEING CLEARED BY HER WALL COVERING INSTALLER . RN CALLED SHE STATED THAT SHE IS OKAY WITH THE NORCO BEING GIVEN. PATIENT THEN AGREED TO TAKE AT THIS TIME.
--- NOTE | 2019-03-08 10:00 | NUR ---
NOTIFIED OF HOLDING CARDIZEM AND COREG DUE TO BLOOD PRESSURE 90/44 MANUALLY.
[2019-03-08 12:00] VITALS: BP 90/50
--- NOTE | 2019-03-08 12:39 | NUR ---
DR. FRANCISCO NOTIFIED OF BP 90/50 MANUAL. NO NEW ORDERS. PT ALERT AND RESPIRATIONS EASY. CALL LIGHT IN REACH.
--- NOTE | 2019-03-08 14:40 | NUR ---
DR. GAMBLE CALLED TO CANCEL ACTH TEST. WILL PERFORM TEST TOMORROW.
[2019-03-08 16:00] VITALS: BP 120/50
[2019-03-08 16:24] VITALS: BP 102/52
--- NOTE | 2019-03-08 16:25 | NUR ---
PT MEDICATED WITH NORCO PER ORDER FOR COMPLAINTS OF 7/10 LEFT FLANK PAIN. WILL MONITOR
--- NOTE | 2019-03-08 17:00 | NUR ---
PT STATED SHE HAD A BM AT THIS TIME.
--- NOTE | 2019-03-08 18:13 | NUR ---
DR. FARRAR CALLED. ORDERED TO CALL PHARMACY AND HAVE THEM DOSE THE RENAL EXTENDED DOSE OF ZOSYN FOR DIVERTICULITIS.
--- NOTE | 2019-03-08 18:31 | NUR ---
ATTEMPTED TO CALL DR. FARRAR. PT ALLERGIC TO PENICILLINS. UNABLE TO TAKE ZOSYN. AWAITING CALL BACK.
--- NOTE | 2019-03-08 18:39 | NUR ---
HANNAH "HELPED MY PAIN" PER PT
--- NOTE | 2019-03-08 19:50 | NUR ---
24 HR CHART CHECK COMPLETE.
[2019-03-08 20:00] VITALS: BP 118/61
[2019-03-09] VITALS: BP 101/52
--- NOTE | 2019-03-09 03:37 | NUR ---
PT MEDICATED WITH PRN NORCO FOR C/O LEFT FLANK PAIN RATED AN 8/10. WILL MONITOR FOR EFFECTIVENESS.
--- NOTE | 2019-03-09 04:15 | NUR ---
PT RESTING COMFORTABLY. NO S/S OF DISTRESS NOTED. WILL CONTINUE TO MONITOR.
[2019-03-09 05:50] LABS: HEMATOCRIT 28.4 % (37.0-47.0); HEMOGLOBIN 8.7 g/dl (12.0-16.0); MEAN CORPUSCULAR HGB 28.8 pg (27.0-31.0); MEAN CORPUSCULAR HGB CONC 30.6 g/dl (33.0-37.0); MEAN PLATELET VOLUME 9.4 fl (9.6-12.3); PLATELET COUNT AUTOMATED 170 10*3/uL (130-400); RED BLOOD COUNT 3.02 10*6/uL (4.10-5.10); RED CELL DISTRI WIDTH 13.7 % (0-14.5)
[2019-03-09 06:03] LABS: ALBUMIN 2.4 gm/dl (3.1-4.5); CREATININE 1.81 mg/dL (0.55-1.02); POTASSIUM 4.6 mmol/L (3.5-5.1); TOTAL PROTEIN 4.7 gm/dL (6.4-8.2); WHITE BLOOD COUNT 1.8 10*3/uL (4.8-10.8)
--- NOTE | 2019-03-09 06:04 | NUR ---
DR TREJO NOTIFIED OF CRITICAL WBC
--- NOTE | 2019-03-09 06:49 | NUR ---
ATTEMPTED TO CALL DR. CAN REGARDING NEW CONSULT AT THIS TIME. AWAITING CALL BACK.
[2019-03-09 07:04] LABS: ACANTHOCYTES FEW; DOHLE BODIES FEW; PLATELET SUFFICIENCY NORMAL (NORMAL); TOTAL CELLS COUNTED 100 #CELLS
[2019-03-09 07:12] LABS: OVALOCYTES MODERATE; ROULEAUX SLIGHT
[2019-03-09 08:00] VITALS: BP 137/82
--- NOTE | 2019-03-09 08:35 | NUR ---
PT VOMITED, ZOFRAN GIVEN.
--- NOTE | 2019-03-09 09:15 | NUR ---
zofran slightly effective
--- NOTE | 2019-03-09 10:57 | NUR ---
dr. braden notified of new consult, no new orders at this time
[2019-03-09 12:00] VITALS: BP 130/76
--- NOTE | 2019-03-09 14:34 | NUR ---
LAB AWARE THAT RHIANNA SOLOMON
[2019-03-09 16:00] VITALS: BP 114/64
[2019-03-10] VITALS: BP 111/76
--- NOTE | 2019-03-10 00:56 | NUR ---
24 HR CHART CHECK COMPLETE.
[2019-03-10 06:12] LABS: CREATININE 1.56 mg/dL (0.55-1.02); POTASSIUM 4.6 mmol/L (3.5-5.1)
[2019-03-10 06:16] LABS: HEMATOCRIT 28.1 % (37.0-47.0); HEMOGLOBIN 8.8 g/dl (12.0-16.0); MEAN CELL VOLUME 93.7 fl (81.0-99.0); MEAN CORPUSCULAR HGB 29.3 pg (27.0-31.0); MEAN CORPUSCULAR HGB CONC 31.3 g/dl (33.0-37.0); MEAN PLATELET VOLUME 10.1 fl (9.6-12.3); PLATELET COUNT AUTOMATED 182 10*3/uL (130-400); RED CELL DISTRI WIDTH 13.9 % (0-14.5); WHITE BLOOD COUNT 3.3 10*3/uL (4.8-10.8)
[2019-03-10 07:15] LABS: DOHLE BODIES FEW; PLATELET SUFFICIENCY NORMAL (NORMAL); SCHISTOCYTES FEW; TOTAL CELLS COUNTED 100 #CELLS; TOXIC GRANULATION SLIGHT
[2019-03-10 07:16] LABS: ACANTHOCYTES FEW; BURR CELLS FEW; OVALOCYTES MODERATE; POLYCHROMASIA SLIGHT; ROULEAUX SLIGHT
[2019-03-10 08:00] VITALS: BP 112/52
[2019-03-10 11:45] VITALS: BP 117/61
[2019-03-10 15:45] VITALS: BP 111/68
[2019-03-10 20:00] VITALS: BP 113/52; BP 118/60
[2019-03-11] VITALS: BP 128/52
--- NOTE | 2019-03-11 00:24 | NUR ---
24 HR chart check completed.
[2019-03-11 06:41] LABS: HEMATOCRIT 27.8 % (37.0-47.0); HEMOGLOBIN 8.4 g/dl (12.0-16.0); MEAN CELL VOLUME 94.9 fl (81.0-99.0); MEAN CORPUSCULAR HGB 28.7 pg (27.0-31.0); MEAN CORPUSCULAR HGB CONC 30.2 g/dl (33.0-37.0); MEAN PLATELET VOLUME 10.3 fl (9.6-12.3); PLATELET COUNT AUTOMATED 170 10*3/uL (130-400); RED BLOOD COUNT 2.93 10*6/uL (4.10-5.10); RED CELL DISTRI WIDTH 14.2 % (0-14.5); WHITE BLOOD COUNT 3.3 10*3/uL (4.8-10.8)
[2019-03-11 07:02] LABS: CREATININE 1.45 mg/dL (0.55-1.02); POTASSIUM 4.5 mmol/L (3.5-5.1)
--- NOTE | 2019-03-11 07:25 | NUR ---
NOTIFIED DR. FARRAR OF PATIENT HAVING TWO MORE BOUTS OF DIARRHEA THIS MORNING. UPDATED HER ON PATIENTS BMP RESULTS. SHE STATED IF THE PATIENT DOES NOT WANT TO TAKE THE ANTIBIOTIC THE PATIENT BELIEVES THAT THE DIARRHEA IS ATTRIBUTED TO THE ANTIBIOTIC SHE DOESN'T HAVE TO, BUT DR. FARRAR WANTS TO SEE WHAT DR. CAN WILL HAVE TO SAY ABOUT THE PATIENT LATER TODAY
[2019-03-11 07:46] LABS: PLATELET SUFFICIENCY NORMAL (NORMAL); TOTAL CELLS COUNTED 100 #CELLS
[2019-03-11 07:47] LABS: DOHLE BODIES FEW; OVALOCYTES MODERATE; POLYCHROMASIA SLIGHT; ROULEAUX SLIGHT; TOXIC GRANULATION SLIGHT
[2019-03-11 08:00] VITALS: BP 113/55
--- NOTE | 2019-03-11 08:46 | NUR ---
pt resting in bed. no distress noted. will monitor
--- NOTE | 2019-03-11 09:00 | NUR ---
case management visits with patient, she states she will return home when medically stable and denies any home needs
[2019-03-11 12:00] VITALS: BP 119/64
--- NOTE | 2019-03-11 14:30 | NUR ---
DR CAN HERE TO SEE PT, STATES THAT IF PT NOT ALLERGIC TO FLAGYL TO ORDER IT FLAGYL ORDERED
[2019-03-11 15:09] LABS: CORTISOL #3 9.4 ug/dL (Not Estab.); CORTISOL BASELINE 3.4 ug/dL (.)
[2019-03-11 16:00] VITALS: BP 118/57
--- NOTE | 2019-03-11 19:30 | NUR ---
24 HOUR CHART CHECK COMPLETED
[2019-03-11 20:00] VITALS: BP 136/63
--- NOTE | 2019-03-11 20:05 | NUR ---
PATIENT ASSESSMENT COMPLETED AT THIS TIME WITHOUT INCIDENT. PATIENT REQUESTING MEDICATION FOR SLEEP AT 2200. PATIENT DENIES ANY OTHER NEEDS OR DISTRESS AT THIS TIME. CALL LIGHT WITHIN REACH, WILL CONTINUE TO MONITOR.
--- NOTE | 2019-03-11 21:35 | NUR ---
STOOL SAMPLE FOR C-DIFF COLLECTED AT THIS TIME, LABELED AND SENT TO LAB.
[2019-03-12] VITALS: BP 105/63
--- NOTE | 2019-03-12 04:05 | NUR ---
PATIENT RESTING IN BED IN A POSITION OF COMFORT. NO SIGNS OR SYMPTOMS OF DISTRESS NOTED AT THIS TIME. IV FLUIDS INFUSING WITHOUT INCIDENT AT THIS TIME. CALL LIGHT WITHIN REACH, WILL CONTINUE TO MONITOR.
[2019-03-12 06:38] LABS: HEMATOCRIT 26.6 % (37.0-47.0); HEMOGLOBIN 8.2 g/dl (12.0-16.0); MEAN CELL VOLUME 94.3 fl (81.0-99.0); MEAN CORPUSCULAR HGB 29.1 pg (27.0-31.0); MEAN CORPUSCULAR HGB CONC 30.8 g/dl (33.0-37.0); PLATELET COUNT AUTOMATED 172 10*3/uL (130-400); RED BLOOD COUNT 2.82 10*6/uL (4.10-5.10); RED CELL DISTRI WIDTH 14.2 % (0-14.5); WHITE BLOOD COUNT 3.3 10*3/uL (4.8-10.8)
[2019-03-12 06:50] LABS: CREATININE 1.38 mg/dL (0.55-1.02); PHOSPHOROUS 2.3 mg/dL (2.5-4.9); POTASSIUM 4.3 mmol/L (3.5-5.1)
[2019-03-12 08:00] VITALS: BP 111/50
[2019-03-12 08:12] LABS: CMV QNT Positive < 200 IU/mL (Negative)
--- NOTE | 2019-03-12 08:28 | NUR ---
PT RESTING IN BED. SEE SHIFT ASSESSMENT WILL MONITOR
[2019-03-12 08:32] LABS: BASOPHILS 1 % (0-1); TOTAL CELLS COUNTED 100 #CELLS
[2019-03-12 08:34] LABS: OVALOCYTES MODERATE; PLATELET SUFFICIENCY NORMAL (NORMAL); SCHISTOCYTES FEW
[2019-03-12 08:37] LABS: TOXIC GRANULATION SLIGHT
[2019-03-12 08:38] LABS: ACANTHOCYTES FEW; BURR CELLS FEW; ROULEAUX SLIGHT
[2019-03-12 12:00] VITALS: BP 121/57
[2019-03-12 14:00] VITALS: BP 121/57
[2019-03-12 16:00] VITALS: BP 126/51
--- NOTE | 2019-03-12 16:50 | NUR ---
DR ISAAC ANSWERING SERVICE NOTIFIED OF CONSULT
--- NOTE | 2019-03-12 19:14 | NUR ---
24 HR chart check completed.
[2019-03-12 20:00] VITALS: BP 134/87
--- NOTE | 2019-03-12 20:25 | NUR ---
IV started right forearm with #24 angiocath after 2nd attempts. The IV site was prepped with Chloraprep. Heparin lock attached. IV solution 0.45% infusing at 50 cc/hr. Sterile dressing applied. Patient tolerated precedure well. Procedure performed according to [facility] policy & procedure. ROSINA FLAHERTY
--- NOTE | 2019-03-12 22:10 | NUR ---
C/O NAUSEA ZOFRAN GIVEN SEE JUN.
--- NOTE | 2019-03-12 23:15 | NUR ---
ZOFRAN EFFECTIVE PER PT.
[2019-03-13] VITALS: BP 120/58
--- NOTE | 2019-03-13 04:30 | NUR ---
LOOSE STOOL. BED LINENS CHANGED.
[2019-03-13 06:37] LABS: HEMATOCRIT 27.3 % (37.0-47.0); HEMOGLOBIN 8.4 g/dl (12.0-16.0); MEAN CELL VOLUME 93.5 fl (81.0-99.0); MEAN CORPUSCULAR HGB 28.8 pg (27.0-31.0); MEAN CORPUSCULAR HGB CONC 30.8 g/dl (33.0-37.0); MEAN PLATELET VOLUME 9.9 fl (9.6-12.3); PLATELET COUNT AUTOMATED 185 10*3/uL (130-400); RED BLOOD COUNT 2.92 10*6/uL (4.10-5.10); RED CELL DISTRI WIDTH 14.1 % (0-14.5); WHITE BLOOD COUNT 3.1 10*3/uL (4.8-10.8)
--- NOTE | 2019-03-13 06:43 | NUR ---
UP TO BATHROOM AGAIN AND HAD LOOSE STOOL.
[2019-03-13 06:51] LABS: CREATININE 1.27 mg/dL (0.55-1.02)
[2019-03-13 07:25] LABS: TOTAL CELLS COUNTED 100 #CELLS
[2019-03-13 07:27] LABS: OVALOCYTES FEW; PLATELET SUFFICIENCY NORMAL (NORMAL)
--- NOTE | 2019-03-13 07:30 | NUR ---
VITAL STABLE, PT A&O X3, HEART SOUNDS NORMAL, LUNG SOUNDS CLEAR THROUGHOUT, PO2 95% EASY NON-LABORED, CAP REFILL <3, SKIN TUGOR NON-TENTING, SKIN PINK WARM DRY AND INTACT, BOWEL SOUNDS HYPERACTIVE X4, ABD SOFT, NON-TENDER, NON-DISTENDED, NO COMPLAINTS OF PAIN AT THIS TIME, IV SITE INTACT, NO S/S OF INFECTION, PT PLEASANT AND COOPERATIVE. WADE VUONG SPNRCC
[2019-03-13 08:12] VITALS: BP 111/58; BP 112/58
--- NOTE | 2019-03-13 10:45 | NUR ---
case management spoke to Sofi at [facility], informed her of home health consult, patient's information faxed
[2019-03-13 12:00] VITALS: BP 131/75; BP 132/75
--- NOTE | 2019-03-13 12:56 | NUR ---
COMPLAINS OF LOOSE STOOLS. 1 PO OF LOMOTIL GIVEN. WILL CONTINUE TO ASSESS. WADE VUONG SPCC
[2019-03-13 16:00] VITALS: BP 120/74
--- NOTE | 2019-03-13 18:37 | NUR ---
DR. CAN MADE AWARE FOR RE-EVALUATION.
[2019-03-13 20:00] VITALS: BP 133/70
--- NOTE | 2019-03-13 20:15 | NUR ---
PATIENT ASSESSMENT COMPLETED WITHOUT INCIDENT AT THIS TIME. PATIENT DENIED ANY PAIN OR NEEDS AT THIS TIME. BGL CHECKED AND MEDICATIONS GIVEN, SEE EMAR. IV INFUSING WITHOUT INCIDENT. CALL LIGHT WITHIN REACH WILL CONTINUE TO MONITOR.
--- NOTE | 2019-03-13 23:00 | NUR ---
24 HOUR CHART CHECK COMPLETE
[2019-03-14] VITALS: BP 116/61
--- NOTE | 2019-03-14 02:50 | NUR ---
PATIENT RESTING IN BED IN A POSITION OF COMFORT, NO SIGNS OR SYMPTOMS OF DISTRESS NOTED AT THIS TIME, CALL LIGHT WITHIN REACH WILL CONTINUE TO MONITOR.
[2019-03-14 08:00] VITALS: BP 103/46
--- NOTE | 2019-03-14 09:00 | NUR ---
case management visits with patient, she will return home when medically stable, case management will follow
[2019-03-14 12:00] VITALS: BP 136/81
[2019-03-14 16:00] VITALS: BP 130/71
[2019-03-14 20:00] VITALS: BP 139/72
--- NOTE | 2019-03-14 20:04 | NUR ---
24 HR chart check completed.
--- NOTE | 2019-03-14 21:00 | NUR ---
RESTING IN BED WITH NO ACUTE DISTRESS NOTED. RESPIRATIONS EASY. LUNGS DIMINISHED, CLEAR. PULSE OX 98% RA. ABD SOFT WITH NORMO BS, DENIES N/V BUT C/O RECURRENT DIARRHEA. IV FLUIDS INFUSING PER ORDER. CALL LIGHT WITHIN REACH. NO VOICED COMPLAINTS
[2019-03-15] VITALS: BP 138/65
--- NOTE | 2019-03-15 | NUR ---
SLEEPING. NO DISTRESS NOTED. RESPIRATIONS EASY. VSS. IV FLUIDS MAINTAINED. CALL LIGHT WITHIN REACH
--- NOTE | 2019-03-15 06:00 | NUR ---
SLEPT THROUGHOUT NIGHT WITH NO DISTRESS NOTED. RESPIRATIONS EASY. IV FLUIDS MAINTAINED. CALL LIGHT WITHIN REACH. NO VOICED COMPLAINTS THIS SHIFT
[2019-03-15 07:26] LABS: CREATININE 1.15 mg/dL (0.55-1.02); HEMATOCRIT 27.5 % (37.0-47.0); HEMOGLOBIN 8.4 g/dl (12.0-16.0); MEAN CELL VOLUME 93.9 fl (81.0-99.0); MEAN CORPUSCULAR HGB 28.7 pg (27.0-31.0); MEAN CORPUSCULAR HGB CONC 30.5 g/dl (33.0-37.0); MEAN PLATELET VOLUME 10.2 fl (9.6-12.3); PHOSPHOROUS 2.9 mg/dL (2.5-4.9); PLATELET COUNT AUTOMATED 188 10*3/uL (130-400); POTASSIUM 3.6 mmol/L (3.5-5.1); RED BLOOD COUNT 2.93 10*6/uL (4.10-5.10); RED CELL DISTRI WIDTH 14.4 % (0-14.5)
--- NOTE | 2019-03-15 07:57 | NUR ---
VS STABLE-COLOR IS GOOD, SKIN WARM DRY AND INTACT. CHAIM, LUNGS DIMINISHED BUT CLEAR, HEART SOUNDS NORMAL, PULSE 86 STRONG BOUNDING, PO2 97% ON R/A, ABD IS SOFT NON-DISTENDED NON-TENDER, HYPERACTIVE BOWEL SOUNDS X4, SKIN TURGOR IS NON-TENTING, CAP REFILL <3, POSITIVE PEDAL PULSES, NO COMPLAINTS OF PAIN, IV SITE IN RIGHT HAND IS INTACT, NO SIGN OF INFECTION, PT PLEASANT AND COOPERATIVE, NO FURTHER COMPLAINTS, WILL CONTINUE TO ASSESS. WADE VUONG SPCC
[2019-03-15 08:00] VITALS: BP 132/76
--- NOTE | 2019-03-15 08:15 | NUR ---
SPOKE WITH DR FARRAR REGARDING PT. DR FARRAR WOULD LIKE TO BE NOTIFIED IF PATIENT IS DISCHARGED FROM HOSPITAL TODAY. SHE WOULD LIKE TO GIVE DISCHARGE ORDERS. NEW ORDERS ALSO RECEIVED TO GIVE MAGNESIUM SULFATE VIA IV [address] ALL APPROPRIATE ORDERS AND NOTIFY PATIENT OF ORDERS.
[2019-03-15 09:21] LABS: ATYPICAL LYMPHS 1 % (0-0); BASOPHILS 1 % (0-1); TOTAL CELLS COUNTED 100 #CELLS
[2019-03-15 09:22] LABS: DOHLE BODIES FEW
[2019-03-15 09:23] LABS: OVALOCYTES MODERATE; PLATELET SUFFICIENCY NORMAL (NORMAL); POLYCHROMASIA SLIGHT; ROULEAUX SLIGHT; SCHISTOCYTES FEW
[2019-03-15 12:00] VITALS: BP 132/64
[2019-03-15] MEDS ORDERED: VANCOMYCIN HCL250 MG PO (15:12)
[2019-03-15] MEDS ORDERED: NOVAPLUS TACROLI1 MG PO (15:19)
[2019-03-15] MEDS ORDERED: BACTRIM 400-801 EACH PO (15:19)
[2019-03-15 16:00] VITALS: BP 128/76
--- NOTE | 2019-03-15 16:00 | NUR ---
DR ISAAC IN FACILITY, MADE AWARE THAT PT WOULD LIKE TO SPEAK WITH HER. PHYSICIAN STATES THAT SHE WILL BE IN TO SPEAK WITH PT.
[2019-03-15] MEDS ORDERED: VALTREX1000 MG PO (16:21)
--- NOTE | 2019-03-15 16:30 | NUR ---
DR ISAAC STATES THAT SHE WILL WRITE A SCRIPT FOR PT TO TAKE VALTREX DUE TO CONCERNS OF RASH ABOVE PT LIPS. WILL OBTAIN SCRIPT FOR PT.
--- NOTE | 2019-03-15 16:35 | NUR ---
DR ISAAC NOTIFIES THIS NURSE THAT PT IS STOP TAKING BACTRIM AND IS TO TAKE DAPSONE [address] ISAAC STATES THAT BACTRIM WILL LOWER PATIENT'S WBC COUNT AND THAT PT IS TO TAKE DAPSONE UNTIL SHE FOLLOWS UP WITH HER PCP. WILL NOTIFY PATIENT OF CHANGES IN HER MEDICATIONS. DR ISAAC ALSO STATES THAT SHE WOULD LIKE THE PATIENT TO TAKE A DOSE OF THE DAPSONE 100 MG TAB NOW IN ORDER FOR THIS NURSE TO MONITOR FOR ANY REACTIONS THAT SHE MAY HAVE TO THE MEDICATIONS. WILL CHANGE MEDICATION ORDER FOR NOW AND GIVE PT MEDICATION WHEN MED IS AVAILABLE FROM PHARMACY.
--- NOTE | 2019-03-15 16:45 | NUR ---
DR ISAAC WRITES SCRIPT FOR VALTREX BUT SCRIPT IS NOT SIGNED BY PHYSICIAN. UNABLE TO CONTACT PHYSICIAN AT THIS TIME. PRIMARY TEAM NOTIFIED AND DR FRANCISCO STATES THAT DR ISAAC WILL BE IN FACILITY TOMORROW AND THAT SCRIPT CAN BE SIGNED AT THAT TIME. PT AND FAMILY MADE AWARE AND STATES THAT THEY ARE ABLE TO COME BACK TO FACILITY TOMORROW TO OBTAIN SIGNED SCRIPT. PT GIVEN CONTACT INFORMATION AND PT'S CONTACT INFO OBTAINED IN ORDER FOR AM NURSING STAFF ON 5TH FLOOR TO NOTIFY PT ONCE VALTREX SCRIPT HAS BEEN SIGNED AND CAN BE PICKED UP.
--- NOTE | 2019-03-15 17:00 | NUR ---
PT ARRIVES TO PICK PT UP FOR DISCHARGE AND STATES THAT [facility] IN [place] IS UNABLE TO FILL PT PO VANCOMYCIN SCRIPT AT THIS TIME BECAUSE THEY DO NOT HAVE MEDICATION IN STOCK UNTIL TOMORROW AFTERNOON. WILL CALL PHARMACY/PRIMARY TEAM AND ASK FOR ORDERS.
[2019-03-15] MEDS ORDERED: VANCOCIN250 M1 PO (17:04)
--- NOTE | 2019-03-15 17:10 | NUR ---
PHARMACY AND DR FRANCISCO NOTIFIED OF PT INABILITY TO OBTAIN PO VANCOMYCIN. PT TO BE GIVEN 1800 DOSE OF VANCOMYCIN PO AT HOSPITAL BEFORE SHE LEAVES. PT WILL THEN NEED 2200 DOSE FOR TODAY AND 1000 DOSE FOR TOMORROW. PHARMACY STATES THAT THEY ARE ABLE TO GIVE PATIENT FOUR PILLS TO GET HER THROUGH UNTIL HER PHARMACY IS ABLE TO FILL HER SCRIPT TOMORROW AFTERNOON. DR FRANCISCO NOTIFIED AND STATES THAT HE WILL WRITE A SCRIPT FOR 4 PILLS OF 250 MG VANCOMYCIN. WILL OBTAIN SCRIPT AND SEND TO PHARMACY TO BE FILLED.
--- NOTE | 2019-03-15 17:25 | NUR ---
PT PICKS UP PT 4 PILLS OF 250 MG PO VANCOMYCIN FROM OUR OUTPATIENT PHARMACY.
--- NOTE | 2019-03-15 17:26 | NUR ---
DAPSONE GIVEN AT THIS TIME. PT UPDATED ON HER MEDICATIONS.
--- NOTE | 2019-03-15 17:30 | NUR ---
[facility] IN [place] CALLED REGARDING PT DAPSONE MEDICATION. MAINTENANCE JOB TITLES STATES THAT THEY HAVE NOT RECEIVED A SCRIPT FOR PATIENT'S DAPSONE MEDICATION. DR FRANCISCO NOTIFIED AND STATES THAT HE WILL SEND AN ELECTRONIC SCRIPT TO [facility] FOR 14 PILLS OF DAPSONE. PT MADE AWARE AND STATES THAT SHE WILL CODING FILE CLERK MEDICATION IN THE MORNING.
[2019-03-15] MEDS ORDERED: DAPSONE100 MG PO (17:46)
--- NOTE | 2019-03-15 18:00 | NUR ---
Discharge instructions reviewed with patient/family. Patient receptive and verbalizes understanding. Follow-up care arranged. Written instructions given to patient/family. MELLY DIANE
--- NOTE | 2019-03-15 19:42 | NUR ---
ATTEMPTED TO NOTIFY INFECTIOUS DISEASE, VIA ANSWERING SERVICE, THAT SCRIPT FOR VALTREX PRINTED BY DR ISAAC NEEDS SIGNED BY PHYSICIAN. PRIMARY TEAM MADE AWARE. PT HAS BEEN DISCHARGED TO HOME AND STATES THAT SHE WILL CALL IN THE MORNING TO SEE IF SCRIPT HAS BEEN SIGNED AND ABLE TO BE PICKED UP BY HER .
[2019-03-16 00:06] LABS: CMV QNT Positive < 200 IU/mL (Negative)
== END 2019-03-15 18:00 | disposition home health service (06) | DRG 371 ==
LOC: ED 12:07 → 5E 13:53 → EDHOLD 13:53 → 5E 14:33
PROVIDERS: Hospitalist; Internal Medicine; Internal Medicine Nephrology; Nurse Practitioner Family; ADMIT Internal Medicine
DX: A04.72 Enterocolitis due to Clostridium difficile, not specified as recurrent (principal); N17.0 Acute kidney failure with tubular necrosis; T86.12 Kidney transplant failure; I48.11 Longstanding persistent atrial fibrillation; E44.0 Moderate protein-calorie malnutrition; E27.40 Unspecified adrenocortical insufficiency; B25.9 Cytomegaloviral disease, unspecified; K57.32 Diverticulitis of large intestine without perforation or abscess without bleeding; Q61.2 Polycystic kidney, adult type; Z94.0 Kidney transplant status; M94.0 Chondrocostal junction syndrome [Tietze]; D64.9 Anemia, unspecified; N18.9 Chronic kidney disease, unspecified; R11.0 Nausea; E78.5 Hyperlipidemia, unspecified; I50.9 Heart failure, unspecified; R53.1 Weakness; E11.22 Type 2 diabetes mellitus with diabetic chronic kidney disease; E83.42 Hypomagnesemia; D89.9 Disorder involving the immune mechanism, unspecified; F32.9 Major depressive disorder, single episode, unspecified; R10.12 Left upper quadrant pain; I95.9 Hypotension, unspecified; E11.40 Type 2 diabetes mellitus with diabetic neuropathy, unspecified; E87.8 Other disorders of electrolyte and fluid balance, not elsewhere classified; E11.65 Type 2 diabetes mellitus with hyperglycemia; K13.0 Diseases of lips; E83.41 Hypermagnesemia; E03.9 Hypothyroidism, unspecified; E66.09 Other obesity due to excess calories; K58.0 Irritable bowel syndrome with diarrhea; D69.6 Thrombocytopenia, unspecified; D70.9 Neutropenia, unspecified; Y83.0 Surgical operation with transplant of whole organ as the cause of abnormal reaction of the patient, or of later complication, without mention of misadventure at the time of the procedure; D63.8 Anemia in other chronic diseases classified elsewhere; I11.0 Hypertensive heart disease with heart failure; Z85.528 Personal history of other malignant neoplasm of kidney; Z90.5 Acquired absence of kidney; Z79.4 Long term (current) use of insulin; Z88.5 Allergy status to narcotic agent; Z88.8 Allergy status to other drugs, medicaments and biological substances; Z88.6 Allergy status to analgesic agent; Z91.041 Radiographic dye allergy status; Z90.49 Acquired absence of other specified parts of digestive tract; Z90.711 Acquired absence of uterus with remaining cervical stump; Z84.1 Family history of disorders of kidney and ureter; Z82.49 Family history of ischemic heart disease and other diseases of the circulatory system; Z86.718 Personal history of other venous thrombosis and embolism; Z86.711 Personal history of pulmonary embolism; Z79.899 Other long term (current) drug therapy; Z79.52 Long term (current) use of systemic steroids; Z88.0 Allergy status to penicillin; Z68.30 Body mass index [BMI] 30.0-30.9, adult; Y92.89 Other specified places as the place of occurrence of the external cause

== ENCOUNTER → 2019-04-22 | Outpatient (CLI) | payer OTHER ==
[~2019-04-22] MED LIST changes: +BACTRIM 400-801 EACH PO; +DAPSONE100 MG PO; +MYCOPHENOLIC A180 M1 PO; +NOVAPLUS TACROLI1 MG PO; +VALTREX1000 MG PO; +VANCOCIN250 M1 PO; +VANCOMYCIN HCL250 MG PO
[2019-04-22 10:07] LABS: CREATININE 1.35 mg/dL (0.55-1.02); POTASSIUM 4.2 mmol/L (3.5-5.1)
== END | disposition home or self-care (01) ==
LOC: LAB 08:41
PROVIDERS: Internal Medicine Nephrology
DX: I13.0 Hypertensive heart and chronic kidney disease with heart failure and stage 1 through stage 4 chronic kidney disease, or unspecified chronic kidney disease (principal); E11.22 Type 2 diabetes mellitus with diabetic chronic kidney disease; N18.9 Chronic kidney disease, unspecified; I50.9 Heart failure, unspecified; R79.9 Abnormal finding of blood chemistry, unspecified

== ENCOUNTER → 2019-05-07 | Outpatient (CLI) | payer OTHER ==
[2019-05-07 09:09] LABS: HEMATOCRIT 37.6 % (37.0-47.0); HEMOGLOBIN 11.3 g/dl (12.0-16.0); MEAN CELL VOLUME 93.8 fl (81.0-99.0); MEAN CORPUSCULAR HGB 28.2 pg (27.0-31.0); MEAN CORPUSCULAR HGB CONC 30.1 g/dl (33.0-37.0); MEAN PLATELET VOLUME 9.6 fl (9.6-12.3); PLATELET COUNT AUTOMATED 251 10*3/uL (130-400); RED BLOOD COUNT 4.01 10*6/uL (4.10-5.10); RED CELL DISTRI WIDTH 14.6 % (0-14.5); WHITE BLOOD COUNT 4.6 10*3/uL (4.8-10.8)
[2019-05-07 09:20] LABS: CREATININE 1.44 mg/dL (0.55-1.02); PHOSPHOROUS 3.7 mg/dL (2.5-4.9); POTASSIUM 4.2 mmol/L (3.5-5.1)
[2019-05-07 10:11] LABS: ATYPICAL LYMPHS 11 % (0-0); BASOPHILS 1 % (0-1); TOTAL CELLS COUNTED 100 #CELLS
[2019-05-07 10:12] LABS: PLATELET SUFFICIENCY NORMAL (NORMAL)
[2019-05-07 10:15] LABS: VITAMIN D, 25-HYDROXY 42.1 ng/mL (30-100)
[2019-05-07 10:16] LABS: PTH INTACT 96.5 pg/mL (18.5-88.0)
== END | disposition home or self-care (01) ==
LOC: LAB 08:20
PROVIDERS: Internal Medicine Nephrology
DX: I12.9 Hypertensive chronic kidney disease with stage 1 through stage 4 chronic kidney disease, or unspecified chronic kidney disease (principal); N18.4 Chronic kidney disease, stage 4 (severe); E55.9 Vitamin D deficiency, unspecified; N25.81 Secondary hyperparathyroidism of renal origin; Q61.3 Polycystic kidney, unspecified; D63.1 Anemia in chronic kidney disease; Z94.0 Kidney transplant status

== ENCOUNTER → 2019-05-20 | Outpatient (CLI) | payer OTHER | END | disposition home or self-care (01) | LOC: LAB 08:53 | PROVIDERS: Internal Medicine Nephrology | DX: Z94.0 Kidney transplant status (principal) ==

== ENCOUNTER → 2019-06-04 | Outpatient (CLI) | payer OTHER | END | disposition home or self-care (01) | LOC: LAB 08:36 | PROVIDERS: Internal Medicine | DX: Z94.0 Kidney transplant status (principal) ==

== ENCOUNTER → 2019-06-20 | Outpatient (CLI) | payer OTHER | END | disposition home or self-care (01) | LOC: LAB 08:31 | PROVIDERS: Internal Medicine Nephrology | DX: Z94.0 Kidney transplant status (principal) ==

== ENCOUNTER → 2019-07-04 | Outpatient (CLI) | payer OTHER | END | disposition home or self-care (01) | LOC: LAB 08:34 | PROVIDERS: Internal Medicine Nephrology | DX: Z94.0 Kidney transplant status (principal) ==

== ENCOUNTER → 2019-07-18 | Outpatient (CLI) | payer OTHER | END | disposition home or self-care (01) | LOC: LAB 08:38 | PROVIDERS: Internal Medicine Nephrology | DX: Z94.0 Kidney transplant status (principal) ==

== ENCOUNTER → 2019-08-01 | Outpatient (CLI) | payer OTHER ==
[2019-08-01 09:10] LABS: BASO % 0.5 % (0.0-1.0); EOS % 0.4 % (1.0-4.0); HEMATOCRIT 38.6 % (37.0-47.0); HEMOGLOBIN 11.8 g/dl (12.0-16.0); LYMPH # 3.3 10*3/uL (1.3-4.4); LYMPH % 43.5 % (27.0-41.0); MEAN CELL VOLUME 93.2 fl (81.0-99.0); MEAN CORPUSCULAR HGB 28.5 pg (27.0-31.0); MEAN CORPUSCULAR HGB CONC 30.6 g/dl (33.0-37.0); MEAN PLATELET VOLUME 9.3 fl (9.6-12.3); MONO # 0.7 10*3/uL (0.1-1.0); MONO % 8.8 % (3.0-9.0); NEUT # 3.5 10*3/uL (2.3-7.9); NEUT % 46.3 % (47.0-73.0); PLATELET COUNT AUTOMATED 217 10*3/uL (130-400); RED BLOOD COUNT 4.14 10*6/uL (4.10-5.10); RED CELL DISTRI WIDTH 15.5 % (0-14.5); WHITE BLOOD COUNT 7.5 10*3/uL (4.8-10.8)
[2019-08-01 09:35] LABS: ALBUMIN 3.3 gm/dl (3.1-4.5); CREATININE 1.1 mg/dL (0.55-1.02); URIC ACID 6.5 mg/dL (2.6-6.0)
[2019-08-01 09:48] LABS: DIGOXIN 0.09 ng/ml (0.8-2.0); THYROID STIM HORMONE (HS) 2.24 uIU/ml (0.358-4.75); TOTAL PROTEIN 6.4 gm/dL (6.4-8.2)
[2019-08-01 11:05] LABS: VITAMIN D, 25-HYDROXY 37.9 ng/mL (30-100)
== END | disposition home or self-care (01) ==
LOC: LAB 08:33
PROVIDERS: Internal Medicine; Internal Medicine Nephrology
DX: I12.9 Hypertensive chronic kidney disease with stage 1 through stage 4 chronic kidney disease, or unspecified chronic kidney disease (principal); E11.22 Type 2 diabetes mellitus with diabetic chronic kidney disease; N18.9 Chronic kidney disease, unspecified; E78.81 Lipoid dermatoarthritis; I48.0 Paroxysmal atrial fibrillation; E55.9 Vitamin D deficiency, unspecified; Z94.0 Kidney transplant status

== ENCOUNTER → 2019-08-15 | Outpatient (CLI) | payer OTHER | END | disposition home or self-care (01) | LOC: LAB 08:20 | PROVIDERS: Internal Medicine Nephrology | DX: Z95.0 Presence of cardiac pacemaker (principal) ==

== ENCOUNTER → 2019-08-30 | Outpatient (CLI) | payer OTHER | END | disposition home or self-care (01) | LOC: LAB 08:50 | PROVIDERS: Internal Medicine Nephrology | DX: Z94.0 Kidney transplant status (principal) ==

== ENCOUNTER → 2019-09-17 | Outpatient (CLI) | payer OTHER | END | disposition home or self-care (01) | LOC: LAB 08:39 | PROVIDERS: Internal Medicine Nephrology | DX: Z94.0 Kidney transplant status (principal) ==

== ENCOUNTER → 2019-10-02 | Outpatient (CLI) | payer OTHER | END | disposition home or self-care (01) | LOC: LAB 08:25 | PROVIDERS: Internal Medicine Nephrology | DX: Z94.0 Kidney transplant status (principal) ==

== ENCOUNTER → 2019-10-23 | Outpatient (CLI) | payer OTHER | END | disposition home or self-care (01) | LOC: LAB 08:29 | PROVIDERS: Internal Medicine Nephrology | DX: Z94.0 Kidney transplant status (principal) ==

== ENCOUNTER → 2019-11-07 | Outpatient (CLI) | payer OTHER ==
[2019-11-07 10:28] LABS: CREATININE 1.35 mg/dL (0.55-1.02); POTASSIUM 4.3 mmol/L (3.5-5.1)
[2019-11-07 10:51] LABS: PTH INTACT 91.5 pg/mL (18.5-88.0); VITAMIN D, 25-HYDROXY 40.8 ng/mL (30-100)
[2019-11-07 13:50] LABS: BILIRUBIN NEGATIVE (NEGATIVE); BLOOD NEGATIVE (NEGATIVE); CLARITY CLEAR (CLEAR); COLOR YELLOW (YELLOW); GLUCOSE NEGATIVE (NEGATIVE); KETONE NEGATIVE (NEGATIVE); LEUKO ESTERASE NEGATIVE (NEGATIVE); NITRITE NEGATIVE (NEGATIVE); RBC 0-2 rbc/hpf (0-2); UROBILINOGEN 0.2 E.U./dl (0.2-1.0)
[2019-11-08 09:10] LABS: CREATININE,URINE 108.5 mg/dL (Not Estab.)
== END | disposition home or self-care (01) ==
LOC: LAB 08:28
PROVIDERS: Internal Medicine Nephrology
DX: I12.9 Hypertensive chronic kidney disease with stage 1 through stage 4 chronic kidney disease, or unspecified chronic kidney disease (principal); N18.4 Chronic kidney disease, stage 4 (severe); E55.9 Vitamin D deficiency, unspecified; N25.81 Secondary hyperparathyroidism of renal origin; Z94.0 Kidney transplant status

== ENCOUNTER → 2020-01-28 | Outpatient (CLI) | payer OTHER | END | disposition home or self-care (01) | LOC: LAB 08:28 | PROVIDERS: ATTEND Internal Medicine Nephrology | DX: Z94.0 Kidney transplant status (principal) ==

== ENCOUNTER → 2020-02-17 | Outpatient (CLI) | payer OTHER | END | disposition home or self-care (01) | LOC: RAD 13:29 | PROVIDERS: ATTEND Internal Medicine | DX: M16.11 Unilateral primary osteoarthritis, right hip (principal); M25.512 Pain in left shoulder; M54.5 Low back pain; I70.0 Atherosclerosis of aorta ==

== ENCOUNTER → 2020-03-31 | Outpatient (CLI) | payer OTHER | END | disposition home or self-care (01) | LOC: LAB 08:24 | PROVIDERS: ATTEND Internal Medicine Nephrology | DX: Z94.0 Kidney transplant status (principal) ==

== ENCOUNTER → 2020-04-21 | Outpatient (CLI) | payer OTHER ==
[2020-04-21 09:35] LABS: BASO % 0.3 % (0.0-1.0); EOS % 0.6 % (1.0-4.0); HEMATOCRIT 42.5 % (37.0-47.0); LYMPH # 3.2 10*3/uL (1.3-4.4); MEAN CORPUSCULAR HGB 29.5 pg (27.0-31.0); MEAN CORPUSCULAR HGB CONC 31.8 g/dl (33.0-37.0); MEAN PLATELET VOLUME 9.6 fl (9.6-12.3); MONO # 0.6 10*3/uL (0.1-1.0); MONO % 8.2 % (3.0-9.0); NEUT # 3.1 10*3/uL (2.3-7.9); NEUT % 44.6 % (47.0-73.0); PLATELET COUNT AUTOMATED 217 10*3/uL (130-400); RED BLOOD COUNT 4.57 10*6/uL (4.10-5.10); RED CELL DISTRI WIDTH 13.6 % (0-14.5)
[2020-04-21 10:09] LABS: CREATININE 1.22 mg/dL (0.55-1.02); POTASSIUM 4.1 mmol/L (3.5-5.1); URIC ACID 6.2 mg/dL (2.6-6.0)
[2020-04-21 11:49] LABS: PTH INTACT 92.5 pg/mL (18.5-88.0); VITAMIN D, 25-HYDROXY 50.3 ng/mL (30-100)
[2020-04-21 12:46] LABS: COLOR Yellow (Yellow)
[2020-04-21 12:47] LABS: BILIRUBIN 1+ (Negative); BLOOD Negative (Negative); CLARITY Cloudy (Clear); GLUCOSE 2+ (Negative); KETONE 1+ (Negative); LEUKO ESTERASE 1+ (Negative); NITRITE Negative (Negative); UROBILINOGEN 0.2 E.U./dl (0.0-1.0)
[2020-04-21 13:04] LABS: EPITHELIAL CELLS 21-30; WBC 41-50 wbc/hpf (0-5)
[2020-04-21 13:05] LABS: BACTERIA 4+; MUCOUS 1+
[2020-04-22 07:10] LABS: CREATININE,URINE 283.1 mg/dL (Not Estab.)
== END | disposition home or self-care (01) ==
LOC: LAB 08:18
PROVIDERS: ATTEND Internal Medicine Nephrology
DX: I12.9 Hypertensive chronic kidney disease with stage 1 through stage 4 chronic kidney disease, or unspecified chronic kidney disease (principal); N18.4 Chronic kidney disease, stage 4 (severe); E55.9 Vitamin D deficiency, unspecified; N25.81 Secondary hyperparathyroidism of renal origin; Z94.0 Kidney transplant status

== ENCOUNTER → 2020-05-05 | Outpatient (CLI) | payer OTHER | END | disposition home or self-care (01) | LOC: LAB 13:03 | PROVIDERS: ATTEND Internal Medicine Nephrology | DX: I12.9 Hypertensive chronic kidney disease with stage 1 through stage 4 chronic kidney disease, or unspecified chronic kidney disease (principal); N18.4 Chronic kidney disease, stage 4 (severe); E55.9 Vitamin D deficiency, unspecified; N25.81 Secondary hyperparathyroidism of renal origin; N39.0 Urinary tract infection, site not specified; Z94.0 Kidney transplant status ==

== ENCOUNTER → 2020-05-19 | Outpatient (CLI) | payer OTHER ==
[2020-05-19 08:57] LABS: BASO % 0.5 % (0.0-1.0); EOS # 0.1 10*3/uL (0.0-0.4); EOS % 0.6 % (1.0-4.0); LYMPH # 3.5 10*3/uL (1.3-4.4); LYMPH % 44.6 % (27.0-41.0); MEAN CELL VOLUME 91.7 fl (81.0-99.0); MEAN CORPUSCULAR HGB 29.4 pg (27.0-31.0); MEAN PLATELET VOLUME 9.4 fl (9.6-12.3); MONO # 0.6 10*3/uL (0.1-1.0); NEUT # 3.6 10*3/uL (2.3-7.9); NEUT % 45.9 % (47.0-73.0); PLATELET COUNT AUTOMATED 225 10*3/uL (130-400); RED CELL DISTRI WIDTH 13.4 % (0-14.5); WHITE BLOOD COUNT 7.8 10*3/uL (4.8-10.8)
[2020-05-19 09:24] LABS: ALBUMIN 3.5 gm/dl (3.1-4.5); CREATININE 1.32 mg/dL (0.55-1.02); POTASSIUM 3.8 mmol/L (3.5-5.1); TOTAL PROTEIN 6.8 gm/dL (6.4-8.2)
[2020-05-19 09:30] LABS: THYROID STIM HORMONE (HS) 3.02 uIU/ml (0.358-4.75)
== END | disposition home or self-care (01) ==
LOC: LAB 08:26
PROVIDERS: ATTEND Internal Medicine
DX: I50.9 Heart failure, unspecified (principal); E11.9 Type 2 diabetes mellitus without complications; N18.9 Chronic kidney disease, unspecified; F34.1 Dysthymic disorder; E78.81 Lipoid dermatoarthritis; E03.9 Hypothyroidism, unspecified; I25.10 Atherosclerotic heart disease of native coronary artery without angina pectoris; E55.9 Vitamin D deficiency, unspecified

== ENCOUNTER → 2020-07-08 | Outpatient (CLI) | payer OTHER | END | disposition home or self-care (01) | LOC: LAB 08:12 | PROVIDERS: ATTEND Internal Medicine Nephrology | DX: Z94.0 Kidney transplant status (principal) ==

== ENCOUNTER → 2020-09-24 | Outpatient (CLI) | payer OTHER ==
[2020-09-24 08:55] LABS: BASO % 0.2 % (0.0-1.0); EOS % 0.4 % (1.0-4.0); HEMATOCRIT 41.9 % (37.0-47.0); LYMPH # 4.1 10*3/uL (1.3-4.4); LYMPH % 48.6 % (27.0-41.0); MEAN CELL VOLUME 93.1 fl (81.0-99.0); MEAN CORPUSCULAR HGB 30.2 pg (27.0-31.0); MEAN CORPUSCULAR HGB CONC 32.5 g/dl (33.0-37.0); MEAN PLATELET VOLUME 9.1 fl (9.6-12.3); MONO # 0.7 10*3/uL (0.1-1.0); MONO % 7.9 % (3.0-9.0); NEUT # 3.6 10*3/uL (2.3-7.9); NEUT % 42.5 % (47.0-73.0); PLATELET COUNT AUTOMATED 209 10*3/uL (130-400); RED CELL DISTRI WIDTH 13.2 % (0-14.5); WHITE BLOOD COUNT 8.3 10*3/uL (4.8-10.8)
[2020-09-24 09:23] LABS: ALBUMIN 3.4 gm/dl (3.1-4.5); CREATININE 1.25 mg/dL (0.55-1.02); POTASSIUM 3.9 mmol/L (3.5-5.1); TOTAL PROTEIN 6.3 gm/dL (6.4-8.2)
[2020-09-24 09:30] LABS: THYROID STIM HORMONE (HS) 2.28 uIU/ml (0.358-4.75)
== END | disposition home or self-care (01) ==
LOC: LAB 08:24
PROVIDERS: Internal Medicine; ATTEND Internal Medicine Nephrology
DX: I12.9 Hypertensive chronic kidney disease with stage 1 through stage 4 chronic kidney disease, or unspecified chronic kidney disease (principal); N18.4 Chronic kidney disease, stage 4 (severe); E55.9 Vitamin D deficiency, unspecified; N25.81 Secondary hyperparathyroidism of renal origin; I25.9 Chronic ischemic heart disease, unspecified; E11.22 Type 2 diabetes mellitus with diabetic chronic kidney disease; E78.81 Lipoid dermatoarthritis; E03.9 Hypothyroidism, unspecified; Z94.0 Kidney transplant status

== ENCOUNTER → 2020-12-29 | Outpatient (CLI) | payer OTHER | END | disposition home or self-care (01) | LOC: LAB 08:34 | PROVIDERS: ATTEND Internal Medicine Nephrology | DX: Z94.0 Kidney transplant status (principal) ==

== ENCOUNTER → 2021-01-25 | Outpatient (CLI) | payer OTHER ==
[2021-01-25 09:14] LABS: BASO % 0.3 % (0.0-1.0); EOS # 0.1 10*3/uL (0.0-0.4); EOS % 0.6 % (1.0-4.0); HEMATOCRIT 39.8 % (37.0-47.0); LYMPH # 3.9 10*3/uL (1.3-4.4); LYMPH % 43.4 % (27.0-41.0); MEAN CELL VOLUME 93.9 fl (81.0-99.0); MEAN CORPUSCULAR HGB CONC 31.9 g/dl (33.0-37.0); MEAN PLATELET VOLUME 9.6 fl (9.6-12.3); MONO # 0.8 10*3/uL (0.1-1.0); MONO % 8.8 % (3.0-9.0); NEUT # 4.2 10*3/uL (2.3-7.9); NEUT % 46.5 % (47.0-73.0); PLATELET COUNT AUTOMATED 207 10*3/uL (130-400); RED BLOOD COUNT 4.24 10*6/uL (4.10-5.10); RED CELL DISTRI WIDTH 13.6 % (0-14.5)
[2021-01-25 09:26] LABS: CREATININE 1.18 mg/dL (0.55-1.02); POTASSIUM 3.9 mmol/L (3.5-5.1)
[2021-01-25 09:52] LABS: PTH INTACT 100.2 pg/mL (18.5-88.0); VITAMIN D, 25-HYDROXY 44.3 ng/mL (30-100)
[2021-01-25 15:52] LABS: BILIRUBIN Negative (Negative); BLOOD Negative (Negative); CLARITY Clear (Clear); COLOR Yellow (Yellow); GLUCOSE 2+ (Negative); KETONE Negative (Negative); LEUKO ESTERASE 2+ (Negative); NITRITE Negative (Negative); PH 5.5 (4.5-8.0); SPECIFIC GRAVITY 1.025 (1.001-1.030)
[2021-01-25 16:03] LABS: BACTERIA 1+; MUCOUS TRACE; RBC 0-2 rbc/hpf (0-2); WBC 16-20 wbc/hpf (0-5)
[2021-01-26 10:07] LABS: CREATININE,URINE 138.5 mg/dL (Not Estab.)
== END | disposition home or self-care (01) ==
LOC: LAB 08:45
PROVIDERS: ATTEND Internal Medicine Nephrology
DX: I12.9 Hypertensive chronic kidney disease with stage 1 through stage 4 chronic kidney disease, or unspecified chronic kidney disease (principal); N18.4 Chronic kidney disease, stage 4 (severe); E55.9 Vitamin D deficiency, unspecified; N25.81 Secondary hyperparathyroidism of renal origin; Z94.0 Kidney transplant status

== ENCOUNTER 2021-02-21 04:35 | Emergency (ER) | payer OTHER ==
[~2021-02-21] VITALS: Ht 165.1 cm; Wt 94.8 kg
[2021-02-21 04:56] LABS: BASO % 0.2 % (0.0-1.0); EOS % 0.2 % (1.0-4.0); HEMATOCRIT 44.4 % (37.0-47.0); LYMPH # 2.7 10*3/uL (1.3-4.4); LYMPH % 41.6 % (27.0-41.0); MEAN CELL VOLUME 91.9 fl (81.0-99.0); MEAN CORPUSCULAR HGB 29.8 pg (27.0-31.0); MEAN CORPUSCULAR HGB CONC 32.4 g/dl (33.0-37.0); MONO # 0.6 10*3/uL (0.1-1.0); MONO % 8.9 % (3.0-9.0); NEUT # 3.2 10*3/uL (2.3-7.9); NEUT % 48.9 % (47.0-73.0); PLATELET COUNT AUTOMATED 166 10*3/uL (130-400); RED BLOOD COUNT 4.83 10*6/uL (4.10-5.10); RED CELL DISTRI WIDTH 13.2 % (0-14.5); WHITE BLOOD COUNT 6.4 10*3/uL (4.8-10.8)
[2021-02-21 05:15] LABS: ALBUMIN 3.5 gm/dl (3.1-4.5); CREATININE 1.43 mg/dL (0.55-1.02); POTASSIUM 3.6 mmol/L (3.5-5.1); TOTAL PROTEIN 6.8 gm/dL (6.4-8.2)
[2021-02-21] MEDS ORDERED: ZOFRAN4 MG PO (10:05)
== END 2021-02-21 10:39 | disposition home or self-care (01) ==
LOC: ED 04:35
PROVIDERS: Emergency Medicine
DX: U07.1 COVID-19 (principal); Z91.041 Radiographic dye allergy status; Z88.0 Allergy status to penicillin; Z88.6 Allergy status to analgesic agent; Z88.8 Allergy status to other drugs, medicaments and biological substances; Z79.899 Other long term (current) drug therapy

== ENCOUNTER → 2021-03-30 | Outpatient (CLI) | payer OTHER ==
[2021-03-30 09:32] LABS: CREATININE 1.28 mg/dL (0.55-1.02); POTASSIUM 4.1 mmol/L (3.5-5.1)
== END | disposition home or self-care (01) ==
LOC: LAB 08:40
PROVIDERS: ATTEND Internal Medicine Nephrology
DX: I12.9 Hypertensive chronic kidney disease with stage 1 through stage 4 chronic kidney disease, or unspecified chronic kidney disease (principal); N18.4 Chronic kidney disease, stage 4 (severe); E55.9 Vitamin D deficiency, unspecified; N25.81 Secondary hyperparathyroidism of renal origin; Z94.0 Kidney transplant status

== ENCOUNTER → 2021-04-09 | Outpatient (CLI) | payer OTHER | END | disposition home or self-care (01) | LOC: US 00:44 | PROVIDERS: ATTEND Internal Medicine Nephrology | DX: I12.9 Hypertensive chronic kidney disease with stage 1 through stage 4 chronic kidney disease, or unspecified chronic kidney disease (principal); N18.4 Chronic kidney disease, stage 4 (severe); N25.81 Secondary hyperparathyroidism of renal origin; E55.9 Vitamin D deficiency, unspecified; Z94.0 Kidney transplant status ==

== ENCOUNTER → 2021-05-03 | Outpatient (CLI) | payer OTHER ==
[2021-05-03 09:09] LABS: BASO % 0.4 % (0.0-1.0); EOS # 0.1 10*3/uL (0.0-0.4); EOS % 0.9 % (1.0-4.0); HEMATOCRIT 40.1 % (37.0-47.0); LYMPH # 3.5 10*3/uL (1.3-4.4); LYMPH % 47.3 % (27.0-41.0); MEAN CELL VOLUME 93.7 fl (81.0-99.0); MEAN CORPUSCULAR HGB 29.9 pg (27.0-31.0); MEAN CORPUSCULAR HGB CONC 31.9 g/dl (33.0-37.0); MEAN PLATELET VOLUME 9.3 fl (9.6-12.3); MONO # 0.7 10*3/uL (0.1-1.0); NEUT # 3.1 10*3/uL (2.3-7.9); NEUT % 41.9 % (47.0-73.0); PLATELET COUNT AUTOMATED 219 10*3/uL (130-400); RED BLOOD COUNT 4.28 10*6/uL (4.10-5.10); WHITE BLOOD COUNT 7.4 10*3/uL (4.8-10.8)
[2021-05-03 09:29] LABS: ALBUMIN 3.3 gm/dl (3.1-4.5); CREATININE 1.23 mg/dL (0.55-1.02); POTASSIUM 3.8 mmol/L (3.5-5.1); TOTAL PROTEIN 6.4 gm/dL (6.4-8.2)
[2021-05-03 09:37] LABS: THYROID STIM HORMONE (HS) 3.08 uIU/ml (0.358-4.75)
== END | disposition home or self-care (01) ==
LOC: LAB 08:38
PROVIDERS: Internal Medicine
DX: I11.0 Hypertensive heart disease with heart failure (principal); I50.9 Heart failure, unspecified; E11.9 Type 2 diabetes mellitus without complications; E78.81 Lipoid dermatoarthritis; E55.9 Vitamin D deficiency, unspecified; F34.1 Dysthymic disorder

== ENCOUNTER → 2021-06-22 | Outpatient (CLI) | payer OTHER ==
[2021-06-22 09:19] LABS: BASO % 0.6 % (0.0-1.0); EOS # 0.1 10*3/uL (0.0-0.4); EOS % 0.7 % (1.0-4.0); HEMATOCRIT 40.5 % (37.0-47.0); LYMPH # 3.2 10*3/uL (1.3-4.4); MEAN CELL VOLUME 93.1 fl (81.0-99.0); MEAN CORPUSCULAR HGB 29.9 pg (27.0-31.0); MEAN CORPUSCULAR HGB CONC 32.1 g/dl (33.0-37.0); MEAN PLATELET VOLUME 9.2 fl (9.6-12.3); MONO # 0.6 10*3/uL (0.1-1.0); MONO % 8.7 % (3.0-9.0); NEUT # 3.2 10*3/uL (2.3-7.9); NEUT % 44.3 % (47.0-73.0); PLATELET COUNT AUTOMATED 183 10*3/uL (130-400); RED BLOOD COUNT 4.35 10*6/uL (4.10-5.10); RED CELL DISTRI WIDTH 13.4 % (0-14.5); WHITE BLOOD COUNT 7.1 10*3/uL (4.8-10.8)
[2021-06-22 09:37] LABS: ALKALINE PHOSPHATASE 56 U/L (45-117); BUN 19 mg/dl (7-24); CHLORIDE 107 mmol/L (98-107); CHOLESTEROL 162 mg/dL (<200); CREATININE 1.25 mg/dL (0.55-1.02); LDL CHOLESTEROL 64 mg/dL (9-159); POTASSIUM 3.9 mmol/L (3.5-5.1); SGOT/AST 14 IU/L (3-35); SGPT/ALT 39 U/L (12-78); SODIUM 139 mmol/L (136-145); TOTAL PROTEIN 6.3 gm/dL (6.4-8.2); TRIGLYCERIDES 211 mg/dl (<150)
== END | disposition home or self-care (01) ==
LOC: LAB 08:34
PROVIDERS: Internal Medicine; ATTEND Internal Medicine Nephrology
DX: E11.9 Type 2 diabetes mellitus without complications (principal); I48.0 Paroxysmal atrial fibrillation; E78.5 Hyperlipidemia, unspecified; I50.9 Heart failure, unspecified; I25.10 Atherosclerotic heart disease of native coronary artery without angina pectoris

== ENCOUNTER → 2021-08-02 | Outpatient (CLI) | payer OTHER ==
[2021-08-02 09:46] LABS: CREATININE 1.3 mg/dL (0.55-1.02); POTASSIUM 4.1 mmol/L (3.5-5.1)
== END | disposition home or self-care (01) ==
LOC: LAB 08:30
PROVIDERS: ATTEND Internal Medicine Nephrology
DX: I12.9 Hypertensive chronic kidney disease with stage 1 through stage 4 chronic kidney disease, or unspecified chronic kidney disease (principal); N25.81 Secondary hyperparathyroidism of renal origin; N18.4 Chronic kidney disease, stage 4 (severe); Z94.0 Kidney transplant status; E55.9 Vitamin D deficiency, unspecified

== ENCOUNTER 2021-10-14 12:41 | Inpatient (IN) | payer OTHER ==
[~2021-10-14] VITALS: Ht 166.3 cm; Wt 90.8 kg
[2021-10-14 12:52] VITALS: BP 90/52
[2021-10-14 13:18] LABS: BASO % 0.3 % (0.0-1.0); HEMATOCRIT 40.5 % (37.0-47.0); LYMPH % 17.8 % (27.0-41.0); MEAN CELL VOLUME 89.2 fl (81.0-99.0); MEAN CORPUSCULAR HGB 29.5 pg (27.0-31.0); MEAN CORPUSCULAR HGB CONC 33.1 g/dl (33.0-37.0); MEAN PLATELET VOLUME 9.2 fl (9.6-12.3); MONO % 8.6 % (3.0-9.0); NEUT # 8.2 10*3/uL (2.3-7.9); NEUT % 72.9 % (47.0-73.0); PLATELET COUNT AUTOMATED 200 10*3/uL (130-400); RED BLOOD COUNT 4.54 10*6/uL (4.10-5.10); RED CELL DISTRI WIDTH 13.3 % (0-14.5); WHITE BLOOD COUNT 11.2 10*3/uL (4.8-10.8)
[2021-10-14 13:28] LABS: INTERNATIONAL NORM RATIO 1.1 (2.0-3.5)
[2021-10-14 13:33] LABS: CREATININE 1.42 mg/dL (0.55-1.02); POTASSIUM 4.3 mmol/L (3.5-5.1); TOTAL PROTEIN 6.6 gm/dL (6.4-8.2)
[2021-10-14 17:17] VITALS: BP 104/54
[2021-10-14 17:54] VITALS: BP 118/73
[2021-10-14] MEDS ORDERED: LEVEMIR FL100 UNIT/1 SC ×2 (18:04)
[2021-10-14] MEDS ORDERED: MYFORTIC180 MG PO (18:06)
[2021-10-14] MEDS ORDERED: TACROLIMUS1 M1 PO (18:09)
[2021-10-14] MEDS ORDERED: NOVAPLUS TACROLI1 MG PO (18:09)
[2021-10-14 20:00] VITALS: BP 121/65
[2021-10-15] VITALS: BP 108/53
[2021-10-15 04:27] LABS: BASO % 0.3 % (0.0-1.0); EOS % 0.1 % (1.0-4.0); LYMPH # 1.8 10*3/uL (1.3-4.4); LYMPH % 25.3 % (27.0-41.0); MEAN CORPUSCULAR HGB 29.9 pg (27.0-31.0); MEAN CORPUSCULAR HGB CONC 32.3 g/dl (33.0-37.0); MEAN PLATELET VOLUME 9.2 fl (9.6-12.3); MONO # 0.7 10*3/uL (0.1-1.0); MONO % 10.4 % (3.0-9.0); NEUT # 4.4 10*3/uL (2.3-7.9); NEUT % 63.5 % (47.0-73.0); PLATELET COUNT AUTOMATED 176 10*3/uL (130-400); RED BLOOD COUNT 4.31 10*6/uL (4.10-5.10); RED CELL DISTRI WIDTH 13.2 % (0-14.5); WHITE BLOOD COUNT 6.9 10*3/uL (4.8-10.8)
[2021-10-15 04:45] LABS: ALKALINE PHOSPHATASE 50 U/L (45-117); BUN 21 mg/dl (7-24); CHLORIDE 106 mmol/L (98-107); CHOLESTEROL 135 mg/dL (<200); CREATININE 1.09 mg/dL (0.55-1.02); LDL CHOLESTEROL 55 mg/dL (9-159); POTASSIUM 3.9 mmol/L (3.5-5.1); SGOT/AST 17 IU/L (3-35); SGPT/ALT 27 U/L (12-78); SODIUM 137 mmol/L (136-145); TOTAL PROTEIN 6.1 gm/dL (6.4-8.2); TRIGLYCERIDES 167 mg/dl (<150)
[2021-10-15 04:50] LABS: FREE T4 1.45 ng/dl (0.76-1.46); THYROID STIM HORMONE (HS) 0.927 uIU/ml (0.358-4.75)
[2021-10-15 04:52] LABS: MEAN CELL VOLUME 92.8 fl (81.0-99.0)
[2021-10-15 05:40] LABS: BILIRUBIN Negative (Negative); BLOOD Negative (Negative); CLARITY Cloudy (Clear); COLOR Yellow (Yellow); GLUCOSE Negative (Negative); KETONE Negative (Negative); LEUKO ESTERASE Negative (Negative); NITRITE Negative (Negative); PH 6.5 (4.5-8.0); SPECIFIC GRAVITY 1.015 (1.001-1.030)
[2021-10-15 06:11] LABS: BACTERIA 1+; EPITHELIAL CELLS 16-20; WBC 0-2 wbc/hpf (0-5)
[2021-10-15 08:00] VITALS: BP 140/70
[2021-10-15 10:45] LABS: VITAMIN D, 25-HYDROXY 55.6 ng/mL (30-100)
[2021-10-15 12:00] VITALS: BP 134/64
[2021-10-15 16:00] VITALS: BP 119/62
[2021-10-15 20:00] VITALS: BP 139/89
[2021-10-16] VITALS: BP 129/63
[2021-10-16 06:28] LABS: BASO % 0.3 % (0.0-1.0); EOS % 0.6 % (1.0-4.0); HEMATOCRIT 37.2 % (37.0-47.0); LYMPH # 2.5 10*3/uL (1.3-4.4); LYMPH % 36.1 % (27.0-41.0); MEAN CELL VOLUME 92.1 fl (81.0-99.0); MEAN CORPUSCULAR HGB 29.5 pg (27.0-31.0); MEAN PLATELET VOLUME 10.3 fl (9.6-12.3); MONO # 0.8 10*3/uL (0.1-1.0); MONO % 11.6 % (3.0-9.0); NEUT # 3.5 10*3/uL (2.3-7.9); PLATELET COUNT AUTOMATED 197 10*3/uL (130-400); RED BLOOD COUNT 4.04 10*6/uL (4.10-5.10); RED CELL DISTRI WIDTH 13.2 % (0-14.5); WHITE BLOOD COUNT 6.9 10*3/uL (4.8-10.8)
[2021-10-16 06:33] LABS: BUN 21 mg/dl (7-24); CHLORIDE 109 mmol/L (98-107); SODIUM 140 mmol/L (136-145)
[2021-10-16 06:37] LABS: ALKALINE PHOSPHATASE 47 U/L (45-117); CREATININE 0.98 mg/dL (0.55-1.02); SGOT/AST 19 IU/L (3-35); SGPT/ALT 26 U/L (12-78); TOTAL PROTEIN 5.6 gm/dL (6.4-8.2)
[2021-10-16 08:00] VITALS: BP 134/74; BP 144/78
[2021-10-16 12:00] VITALS: BP 141/73
[2021-10-16 13:00] VITALS: BP 138/64
[2021-10-16 16:00] VITALS: BP 154/71
[2021-10-16 20:00] VITALS: BP 141/73; BP 147/58
[2021-10-17] VITALS: BP 143/75
[2021-10-17 06:08] LABS: BUN 18 mg/dl (7-24); CHLORIDE 110 mmol/L (98-107); POTASSIUM 4.1 mmol/L (3.5-5.1); SODIUM 141 mmol/L (136-145)
[2021-10-17 06:09] LABS: CREATININE 0.98 mg/dL (0.55-1.02)
[2021-10-17 06:23] LABS: BASO % 0.5 % (0.0-1.0); EOS # 0.1 10*3/uL (0.0-0.4); HEMATOCRIT 36.3 % (37.0-47.0); LYMPH # 2.8 10*3/uL (1.3-4.4); LYMPH % 43.7 % (27.0-41.0); MEAN CELL VOLUME 92.4 fl (81.0-99.0); MEAN CORPUSCULAR HGB 29.8 pg (27.0-31.0); MEAN CORPUSCULAR HGB CONC 32.2 g/dl (33.0-37.0); MEAN PLATELET VOLUME 10.2 fl (9.6-12.3); MONO # 0.6 10*3/uL (0.1-1.0); NEUT # 2.8 10*3/uL (2.3-7.9); NEUT % 44.5 % (47.0-73.0); PLATELET COUNT AUTOMATED 199 10*3/uL (130-400); RED BLOOD COUNT 3.93 10*6/uL (4.10-5.10); WHITE BLOOD COUNT 6.3 10*3/uL (4.8-10.8)
[2021-10-17 08:00] VITALS: BP 153/83
[2021-10-17 09:00] VITALS: BP 154/86
[2021-10-17 12:00] VITALS: BP 141/73; BP 154/86
[2021-10-17] MEDS ORDERED: CEFDINIR300 MG PO ×2 (14:23)
[2021-10-17] MEDS ORDERED: METRONIDAZOLE500 M1 PO (14:23)
[2021-10-17 16:00] VITALS: BP 142/70
[2021-10-17 20:00] VITALS: BP 142/61
[2021-10-18] VITALS (8 sets, daily range): BP systolic 133–184; BP diastolic 70–89
[2021-10-18 06:12] LABS: BASO % 0.6 % (0.0-1.0); EOS # 0.1 10*3/uL (0.0-0.4); EOS % 1.1 % (1.0-4.0); HEMATOCRIT 37.2 % (37.0-47.0); LYMPH # 3.1 10*3/uL (1.3-4.4); LYMPH % 42.8 % (27.0-41.0); MEAN CELL VOLUME 90.7 fl (81.0-99.0); MEAN CORPUSCULAR HGB 30.2 pg (27.0-31.0); MEAN CORPUSCULAR HGB CONC 33.3 g/dl (33.0-37.0); MEAN PLATELET VOLUME 9.7 fl (9.6-12.3); MONO # 0.7 10*3/uL (0.1-1.0); MONO % 9.9 % (3.0-9.0); NEUT # 3.3 10*3/uL (2.3-7.9); NEUT % 45.2 % (47.0-73.0); PLATELET COUNT AUTOMATED 192 10*3/uL (130-400); WHITE BLOOD COUNT 7.3 10*3/uL (4.8-10.8)
[2021-10-18 06:27] LABS: BUN 11 mg/dl (7-24); CHLORIDE 109 mmol/L (98-107); CREATININE 0.92 mg/dL (0.55-1.02); POTASSIUM 3.7 mmol/L (3.5-5.1); SODIUM 142 mmol/L (136-145)
[2021-10-18] MEDS ORDERED: LEVOFLOXACIN750 M2 PO (16:31)
[2021-10-18] MEDS ORDERED: METRONIDAZOLE500 M1 PO (16:31)
[2021-10-19] VITALS: BP 143/85
[2021-10-19 08:00] VITALS: BP 134/72
[2021-10-19 12:00] VITALS: BP 146/66
[2021-10-19 16:00] VITALS: BP 135/65
[2021-10-19 20:04] VITALS: BP 126/83
[2021-10-20] VITALS: BP 158/90
[2021-10-20 04:00] VITALS: BP 150/90
[2021-10-20 05:15] LABS: BUN 17 mg/dl (7-24); CHLORIDE 107 mmol/L (98-107); CREATININE 1.08 mg/dL (0.55-1.02); POTASSIUM 3.6 mmol/L (3.5-5.1); SODIUM 141 mmol/L (136-145)
[2021-10-20 08:00] VITALS: BP 131/79
[2021-10-20 12:00] VITALS: BP 142/89
[2021-10-20 16:00] VITALS: BP 132/77
[2021-10-20 20:00] VITALS: BP 112/77
[2021-10-21] VITALS: BP 133/64
[2021-10-21 04:09] VITALS: BP 133/66
[2021-10-21 08:00] VITALS: BP 144/82
[2021-10-21 11:54] VITALS: BP 137/72
[2021-10-21] MEDS ORDERED: PHARMASSURE FO0.4 MG PO (12:21)
[2021-10-21] MEDS ORDERED: HUMALOG100 UNIT/1 SQ ×2 (12:21→12:26)
[2021-10-21] MEDS ORDERED: Nystatin 100,000 UNI PO ×2 (12:21→12:25)
[2021-10-21] MEDS ORDERED: ZOFRAN4 MG PO (12:21)
[2021-10-21] MEDS ORDERED: SEPTDS PO (12:37)
[2021-10-21] MEDS ORDERED: BACTRIM 400-801 EACH PO (12:49)
== END 2021-10-21 15:30 | disposition home or self-care (01) | DRG 177 ==
LOC: ED 12:41 → EDHOLD 15:52 → 4E 15:52
PROVIDERS: Emergency Medicine; Internal Medicine; ADMIT Student in an Organized Health Care Education/Training Program; ATTEND Student in an Organized Health Care Education/Training Program
PROC: 0DJD8ZZ Inspection of Lower Intestinal Tract, Via Natural or Artificial Opening Endoscopic (ICD-10-PCS; principal; 2021-10-18)
DX: J15.6 Pneumonia due to other Gram-negative bacteria (principal); N17.0 Acute kidney failure with tubular necrosis; E87.1 Hypo-osmolality and hyponatremia; Q61.3 Polycystic kidney, unspecified; Z94.0 Kidney transplant status; E86.0 Dehydration; I50.9 Heart failure, unspecified; I48.91 Unspecified atrial fibrillation; E78.5 Hyperlipidemia, unspecified; E11.40 Type 2 diabetes mellitus with diabetic neuropathy, unspecified; F32.9 Major depressive disorder, single episode, unspecified; E80.6 Other disorders of bilirubin metabolism; K57.30 Diverticulosis of large intestine without perforation or abscess without bleeding; L29.8 Other pruritus; B37.9 Candidiasis, unspecified; I11.0 Hypertensive heart disease with heart failure; R79.89 Other specified abnormal findings of blood chemistry; D89.9 Disorder involving the immune mechanism, unspecified; Z82.71 Family history of polycystic kidney; Z86.718 Personal history of other venous thrombosis and embolism; Z86.711 Personal history of pulmonary embolism; Z90.49 Acquired absence of other specified parts of digestive tract; Z90.711 Acquired absence of uterus with remaining cervical stump; Z82.49 Family history of ischemic heart disease and other diseases of the circulatory system; Z85.528 Personal history of other malignant neoplasm of kidney; Z90.5 Acquired absence of kidney; Z88.6 Allergy status to analgesic agent; Z88.0 Allergy status to penicillin; Z88.8 Allergy status to other drugs, medicaments and biological substances

== ENCOUNTER 2021-10-28 20:17 | Emergency (ER) | payer OTHER ==
[~2021-10-28] VITALS: Ht 165.1 cm; Wt 90.7 kg
[~2021-10-28 20:17] MED LIST changes: +CEFDINIR300 MG PO; +HUMALOG100 UNIT/1 SQ; +LEVOFLOXACIN750 M2 PO; +METRONIDAZOLE500 M1 PO; +MYFORTIC180 MG PO; +Nystatin 100,000 UNI PO; +PHARMASSURE FO0.4 MG PO; +SEPTDS PO
[2021-10-28 22:02] LABS: BASO % 0.3 % (0.0-1.0); EOS % 0.1 % (1.0-4.0); HEMATOCRIT 40.9 % (37.0-47.0); LYMPH # 3.4 10*3/uL (1.3-4.4); LYMPH % 32.8 % (27.0-41.0); MEAN CELL VOLUME 90.7 fl (81.0-99.0); MEAN CORPUSCULAR HGB 29.5 pg (27.0-31.0); MEAN CORPUSCULAR HGB CONC 32.5 g/dl (33.0-37.0); MEAN PLATELET VOLUME 9.3 fl (9.6-12.3); MONO # 0.7 10*3/uL (0.1-1.0); MONO % 7.1 % (3.0-9.0); NEUT # 6.1 10*3/uL (2.3-7.9); NEUT % 59.3 % (47.0-73.0); PLATELET COUNT AUTOMATED 192 10*3/uL (130-400); RED BLOOD COUNT 4.51 10*6/uL (4.10-5.10); RED CELL DISTRI WIDTH 13.7 % (0-14.5); WHITE BLOOD COUNT 10.3 10*3/uL (4.8-10.8)
[2021-10-28 22:13] LABS: CREATININE 1.55 mg/dL (0.55-1.02); POTASSIUM 4.3 mmol/L (3.5-5.1)
== END 2021-10-29 01:37 | disposition home or self-care (01) ==
LOC: ED 20:17
PROVIDERS: Emergency Medicine
DX: M25.511 Pain in right shoulder (principal); M25.512 Pain in left shoulder; M25.561 Pain in right knee; M25.562 Pain in left knee; Z88.8 Allergy status to other drugs, medicaments and biological substances; Z91.041 Radiographic dye allergy status; Z79.899 Other long term (current) drug therapy; Z90.89 Acquired absence of other organs; Z90.49 Acquired absence of other specified parts of digestive tract; Z98.890 Other specified postprocedural states

== ENCOUNTER → 2021-12-22 | Outpatient (CLI) | payer OTHER | END | disposition home or self-care (01) | LOC: MRI 14:22 | PROVIDERS: ATTEND Internal Medicine Gastroenterology | DX: K76.89 Other specified diseases of liver (principal); N20.0 Calculus of kidney; N28.1 Cyst of kidney, acquired; Z90.49 Acquired absence of other specified parts of digestive tract ==

== ENCOUNTER → 2022-01-31 | Outpatient (CLI) | payer OTHER ==
[2022-01-31 09:35] LABS: BASO % 0.4 % (0.0-1.0); EOS # 0.1 10*3/uL (0.0-0.4); EOS % 1.1 % (1.0-4.0); HEMATOCRIT 38.8 % (37.0-47.0); LYMPH # 2.9 10*3/uL (1.3-4.4); LYMPH % 40.9 % (27.0-41.0); MEAN CELL VOLUME 94.6 fl (81.0-99.0); MEAN CORPUSCULAR HGB 30.2 pg (27.0-31.0); MEAN PLATELET VOLUME 9.5 fl (9.6-12.3); MONO # 0.6 10*3/uL (0.1-1.0); MONO % 8.8 % (3.0-9.0); NEUT # 3.5 10*3/uL (2.3-7.9); NEUT % 48.2 % (47.0-73.0); PLATELET COUNT AUTOMATED 194 10*3/uL (130-400); WHITE BLOOD COUNT 7.2 10*3/uL (4.8-10.8)
[2022-01-31 09:36] LABS: BILIRUBIN Negative (Negative); BLOOD Negative (Negative); CLARITY Clear (Clear); COLOR Yellow (Yellow); GLUCOSE Negative (Negative); KETONE Negative (Negative); LEUKO ESTERASE Trace (Negative); NITRITE Negative (Negative); SPECIFIC GRAVITY 1.015 (1.001-1.030); UROBILINOGEN 0.2 E.U./dl (0.0-1.0)
[2022-01-31 09:56] LABS: CREATININE 1.2 mg/dL (0.55-1.02); POTASSIUM 4.1 mmol/L (3.5-5.1)
[2022-01-31 10:23] LABS: BACTERIA 2+
[2022-02-01 10:07] LABS: CREATININE,URINE 46.8 mg/dL (Not Estab.)
== END | disposition home or self-care (01) ==
LOC: LAB 08:55
PROVIDERS: ATTEND Internal Medicine Nephrology
DX: I12.9 Hypertensive chronic kidney disease with stage 1 through stage 4 chronic kidney disease, or unspecified chronic kidney disease (principal); N18.4 Chronic kidney disease, stage 4 (severe); E55.9 Vitamin D deficiency, unspecified; N25.81 Secondary hyperparathyroidism of renal origin; Z94.0 Kidney transplant status

== ENCOUNTER → 2022-05-17 | Outpatient (CLI) | payer OTHER ==
[2022-05-17 10:05] LABS: BASO % 0.4 % (0.0-1.0); EOS % 0.5 % (1.0-4.0); HEMATOCRIT 40.9 % (37.0-47.0); LYMPH # 3.3 10*3/uL (1.3-4.4); LYMPH % 41.7 % (27.0-41.0); MEAN CORPUSCULAR HGB 29.8 pg (27.0-31.0); MEAN PLATELET VOLUME 9.8 fl (9.6-12.3); MONO # 0.7 10*3/uL (0.1-1.0); MONO % 8.5 % (3.0-9.0); NEUT # 3.9 10*3/uL (2.3-7.9); NEUT % 48.5 % (47.0-73.0); PLATELET COUNT AUTOMATED 196 10*3/uL (130-400); RED CELL DISTRI WIDTH 13.8 % (0-14.5)
[2022-05-17 10:26] LABS: BUN 18 mg/dl (9-23); CHLORIDE 100 mmol/L (98-107); CHOLESTEROL 162 mg/dL (<200); LDL CHOLESTEROL 65 mg/dL (9-159); POTASSIUM 3.9 mmol/L (3.4-5.1); TRIGLYCERIDES 224 mg/dl (<150)
[2022-05-17 10:48] LABS: VITAMIN D, 25-HYDROXY 48.9 ng/mL (30-100)
[2022-05-17 14:32] LABS: BILIRUBIN Negative (Negative); BLOOD Negative (Negative); CLARITY Clear (Clear); COLOR Yellow (Yellow); GLUCOSE Negative (Negative); KETONE Negative (Negative); LEUKO ESTERASE Trace (Negative); NITRITE Negative (Negative); UROBILINOGEN 0.2 E.U./dl (0.0-1.0)
[2022-05-17 14:47] LABS: BACTERIA 1+; RBC 0-2 rbc/hpf (0-2)
== END | disposition home or self-care (01) ==
LOC: LAB 09:07
PROVIDERS: ATTEND Internal Medicine Nephrology
DX: I12.9 Hypertensive chronic kidney disease with stage 1 through stage 4 chronic kidney disease, or unspecified chronic kidney disease (principal); N18.4 Chronic kidney disease, stage 4 (severe); E55.9 Vitamin D deficiency, unspecified; N25.81 Secondary hyperparathyroidism of renal origin; Z94.0 Kidney transplant status; E86.0 Dehydration; E11.29 Type 2 diabetes mellitus with other diabetic kidney complication; K85.90 Acute pancreatitis without necrosis or infection, unspecified; R03.1 Nonspecific low blood-pressure reading; Z79.899 Other long term (current) drug therapy

== ENCOUNTER → 2022-05-31 | Outpatient (CLI) | payer OTHER ==
[2022-05-31 15:28] LABS: BILIRUBIN Negative (Negative); BLOOD Negative (Negative); CLARITY Clear (Clear); COLOR Yellow (Yellow); GLUCOSE 2+ (Negative); KETONE Negative (Negative); LEUKO ESTERASE 1+ (Negative); NITRITE Negative (Negative); UROBILINOGEN 0.2 E.U./dl (0.0-1.0)
[2022-05-31 16:02] LABS: BACTERIA TRACE; RBC 0-2 rbc/hpf (0-2)
== END | disposition home or self-care (01) ==
LOC: LAB 10:29
PROVIDERS: ATTEND Nurse Practitioner Family
DX: I12.9 Hypertensive chronic kidney disease with stage 1 through stage 4 chronic kidney disease, or unspecified chronic kidney disease (principal); N18.32 Chronic kidney disease, stage 3b; D63.1 Anemia in chronic kidney disease; N28.81 Hypertrophy of kidney; Z94.0 Kidney transplant status

== ENCOUNTER → 2022-06-22 | Outpatient (CLI) | payer OTHER ==
[2022-06-22 09:20] LABS: POTASSIUM 4.2 mmol/L (3.4-5.1); THYROID STIM HORMONE (HS) 3.241 uIU/ml (0.550-4.780); TOTAL PROTEIN 6.1 gm/dL (6.0-8.0)
[2022-06-22 11:59] LABS: BASO % 0.3 % (0.0-1.0); EOS # 0.1 10*3/uL (0.0-0.4); EOS % 0.7 % (1.0-4.0); HEMATOCRIT 39.9 % (37.0-47.0); LYMPH # 3.3 10*3/uL (1.3-4.4); LYMPH % 45.6 % (27.0-41.0); MEAN CELL VOLUME 92.8 fl (81.0-99.0); MEAN CORPUSCULAR HGB 30.7 pg (27.0-31.0); MEAN CORPUSCULAR HGB CONC 33.1 g/dl (33.0-37.0); MEAN PLATELET VOLUME 10.7 fl (9.6-12.3); MONO # 0.6 10*3/uL (0.1-1.0); MONO % 8.6 % (3.0-9.0); NEUT # 3.2 10*3/uL (2.3-7.9); NEUT % 44.4 % (47.0-73.0); PLATELET COUNT AUTOMATED 193 10*3/uL (130-400); RED CELL DISTRI WIDTH 13.9 % (0-14.5); WHITE BLOOD COUNT 7.2 10*3/uL (4.8-10.8)
== END | disposition home or self-care (01) ==
LOC: LAB 08:42
PROVIDERS: ATTEND Internal Medicine
DX: I13.0 Hypertensive heart and chronic kidney disease with heart failure and stage 1 through stage 4 chronic kidney disease, or unspecified chronic kidney disease (principal); I50.9 Heart failure, unspecified; N18.9 Chronic kidney disease, unspecified; I48.0 Paroxysmal atrial fibrillation; E78.81 Lipoid dermatoarthritis; E55.9 Vitamin D deficiency, unspecified

== ENCOUNTER 2022-08-23 10:27 | Emergency (ER) | payer OTHER ==
[~2022-08-23] VITALS: Ht 167.6 cm; Wt 95.3 kg
[2022-08-23] MEDS ORDERED: LEVEMIR FL100 UNIT/1 SC (10:44)
[2022-08-23] MEDS ORDERED: BACTRIM 400-801 EACH PO (10:45)
[2022-08-23 11:53] LABS: BASO % 0.2 % (0.0-1.0); EOS % 0.3 % (1.0-4.0); HEMATOCRIT 39.4 % (37.0-47.0); LYMPH # 2.3 10*3/uL (1.3-4.4); LYMPH % 26.6 % (27.0-41.0); MEAN CELL VOLUME 92.7 fl (81.0-99.0); MEAN CORPUSCULAR HGB 30.6 pg (27.0-31.0); MEAN PLATELET VOLUME 9.2 fl (9.6-12.3); MONO # 0.7 10*3/uL (0.1-1.0); MONO % 7.5 % (3.0-9.0); NEUT # 5.7 10*3/uL (2.3-7.9); NEUT % 65.1 % (47.0-73.0); PLATELET COUNT AUTOMATED 196 10*3/uL (130-400); RED BLOOD COUNT 4.25 10*6/uL (4.10-5.10); RED CELL DISTRI WIDTH 13.4 % (0-14.5); WHITE BLOOD COUNT 8.7 10*3/uL (4.8-10.8)
[2022-08-23 12:01] LABS: INTERNATIONAL NORM RATIO 1.1 (2.0-3.5)
[2022-08-23 12:11] LABS: POTASSIUM 3.8 mmol/L (3.4-5.1); THYROID STIM HORMONE (HS) 1.394 uIU/ml (0.550-4.780); TOTAL PROTEIN 5.8 gm/dL (6.0-8.0)
== END 2022-08-23 15:16 | disposition home or self-care (01) ==
LOC: ED 10:27
PROVIDERS: Emergency Medicine
DX: R53.1 Weakness (principal); E11.9 Type 2 diabetes mellitus without complications; I50.9 Heart failure, unspecified; G43.909 Migraine, unspecified, not intractable, without status migrainosus; I48.91 Unspecified atrial fibrillation; Z91.041 Radiographic dye allergy status; Z88.6 Allergy status to analgesic agent; Z88.5 Allergy status to narcotic agent; Z88.8 Allergy status to other drugs, medicaments and biological substances; Z90.49 Acquired absence of other specified parts of digestive tract; Z90.711 Acquired absence of uterus with remaining cervical stump; Z90.89 Acquired absence of other organs; Z98.890 Other specified postprocedural states; F17.210 Nicotine dependence, cigarettes, uncomplicated

== ENCOUNTER → 2022-10-19 | Outpatient (CLI) | payer OTHER | END | disposition home or self-care (01) | LOC: US 00:30 | PROVIDERS: ATTEND Internal Medicine | DX: N18.9 Chronic kidney disease, unspecified (principal); Z98.890 Other specified postprocedural states ==

== ENCOUNTER → 2022-11-22 | Outpatient (CLI) | payer OTHER ==
[2022-11-22 09:14] LABS: BILIRUBIN Negative (Negative); BLOOD Negative (Negative); CLARITY Clear (Clear); COLOR Yellow (Yellow); GLUCOSE Negative (Negative); KETONE Negative (Negative); LEUKO ESTERASE Trace (Negative); NITRITE Negative (Negative); UROBILINOGEN 0.2 E.U./dl (0.0-1.0)
[2022-11-22 09:15] LABS: BASO % 0.4 % (0.0-1.0); EOS # 0.1 10*3/uL (0.0-0.4); EOS % 0.8 % (1.0-4.0); HEMATOCRIT 41.5 % (37.0-47.0); LYMPH # 3.2 10*3/uL (1.3-4.4); LYMPH % 40.6 % (27.0-41.0); MEAN CORPUSCULAR HGB 30.3 pg (27.0-31.0); MEAN CORPUSCULAR HGB CONC 32.5 g/dl (33.0-37.0); MONO # 0.6 10*3/uL (0.1-1.0); MONO % 7.4 % (3.0-9.0); NEUT % 50.3 % (47.0-73.0); PLATELET COUNT AUTOMATED 196 10*3/uL (130-400); RED BLOOD COUNT 4.46 10*6/uL (4.10-5.10); RED CELL DISTRI WIDTH 13.4 % (0-14.5)
[2022-11-22 09:22] LABS: URINE CREATININE RANDOM 37.18 mg/dL
[2022-11-22 09:33] LABS: RBC 0-2 rbc/hpf (0-2)
[2022-11-22 10:04] LABS: POTASSIUM 3.9 mmol/L (3.4-5.1); TOTAL PROTEIN 6.2 gm/dL (6.0-8.0)
[2022-11-22 10:29] LABS: VITAMIN D, 25-HYDROXY 43.8 ng/mL (30-100)
== END | disposition home or self-care (01) ==
LOC: LAB 08:35
PROVIDERS: ATTEND Nurse Practitioner Family
DX: I12.9 Hypertensive chronic kidney disease with stage 1 through stage 4 chronic kidney disease, or unspecified chronic kidney disease (principal); N18.32 Chronic kidney disease, stage 3b; D63.1 Anemia in chronic kidney disease; N25.81 Secondary hyperparathyroidism of renal origin; Z94.0 Kidney transplant status; Z79.899 Other long term (current) drug therapy

== ENCOUNTER → 2022-12-30 | Outpatient (CLI) | payer OTHER ==
[2022-12-30 12:27] LABS: BILIRUBIN Negative (Negative); BLOOD Negative (Negative); CLARITY Clear (Clear); COLOR Yellow (Yellow); GLUCOSE Negative (Negative); KETONE Negative (Negative); LEUKO ESTERASE 2+ (Negative); NITRITE Negative (Negative); UROBILINOGEN 0.2 E.U./dl (0.0-1.0)
[2022-12-30 12:36] LABS: BACTERIA 1+
== END | disposition home or self-care (01) ==
LOC: LAB 11:38
PROVIDERS: ATTEND Internal Medicine Nephrology
DX: N25.81 Secondary hyperparathyroidism of renal origin (principal); Z79.899 Other long term (current) drug therapy

== ENCOUNTER → 2023-02-14 | Outpatient (CLI) | payer OTHER ==
[2023-02-14 09:25] LABS: BASO % 0.2 % (0.0-1.0); EOS % 0.5 % (1.0-4.0); HEMATOCRIT 42.3 % (37.0-47.0); LYMPH # 3.4 10*3/uL (1.3-4.4); LYMPH % 41.5 % (27.0-41.0); MEAN CELL VOLUME 93.2 fl (81.0-99.0); MEAN CORPUSCULAR HGB 30.2 pg (27.0-31.0); MEAN CORPUSCULAR HGB CONC 32.4 g/dl (33.0-37.0); MEAN PLATELET VOLUME 9.3 fl (9.6-12.3); MONO # 0.6 10*3/uL (0.1-1.0); MONO % 7.3 % (3.0-9.0); NEUT # 4.1 10*3/uL (2.3-7.9); NEUT % 50.1 % (47.0-73.0); PLATELET COUNT AUTOMATED 208 10*3/uL (130-400); RED BLOOD COUNT 4.54 10*6/uL (4.10-5.10); RED CELL DISTRI WIDTH 13.4 % (0-14.5); WHITE BLOOD COUNT 8.2 10*3/uL (4.8-10.8)
[2023-02-14 09:59] LABS: TOTAL PROTEIN 6.2 gm/dL (6.0-8.0)
== END | disposition home or self-care (01) ==
LOC: LAB 08:48
PROVIDERS: ATTEND Internal Medicine
DX: E55.9 Vitamin D deficiency, unspecified (principal); E03.9 Hypothyroidism, unspecified; I13.0 Hypertensive heart and chronic kidney disease with heart failure and stage 1 through stage 4 chronic kidney disease, or unspecified chronic kidney disease; E11.22 Type 2 diabetes mellitus with diabetic chronic kidney disease; I50.9 Heart failure, unspecified; C44.92 Squamous cell carcinoma of skin, unspecified; N18.9 Chronic kidney disease, unspecified

== ENCOUNTER → 2023-04-03 | Outpatient (CLI) | payer OTHER ==
[2023-04-03 08:47] LABS: BILIRUBIN Negative (Negative); BLOOD Negative (Negative); CLARITY Clear (Clear); COLOR Yellow (Yellow); GLUCOSE Negative (Negative); KETONE Negative (Negative); LEUKO ESTERASE 1+ (Negative); NITRITE Negative (Negative); PH 6.5 (4.5-8.0); UROBILINOGEN 0.2 E.U./dl (0.0-1.0)
[2023-04-03 08:49] LABS: BASO % 0.4 % (0.0-1.0); EOS # 0.1 10*3/uL (0.0-0.4); EOS % 0.6 % (1.0-4.0); HEMATOCRIT 39.9 % (37.0-47.0); LYMPH # 3.4 10*3/uL (1.3-4.4); LYMPH % 41.5 % (27.0-41.0); MEAN CELL VOLUME 92.4 fl (81.0-99.0); MEAN CORPUSCULAR HGB 30.6 pg (27.0-31.0); MEAN CORPUSCULAR HGB CONC 33.1 g/dl (33.0-37.0); MEAN PLATELET VOLUME 9.4 fl (9.6-12.3); MONO # 0.5 10*3/uL (0.1-1.0); MONO % 6.4 % (3.0-9.0); NEUT # 4.2 10*3/uL (2.3-7.9); NEUT % 50.6 % (47.0-73.0); PLATELET COUNT AUTOMATED 214 10*3/uL (130-400); RED BLOOD COUNT 4.32 10*6/uL (4.10-5.10); RED CELL DISTRI WIDTH 13.5 % (0-14.5); WHITE BLOOD COUNT 8.3 10*3/uL (4.8-10.8)
[2023-04-03 09:00] LABS: URINE CREATININE RANDOM 34.23 mg/dL
[2023-04-03 09:36] LABS: POTASSIUM 4.4 mmol/L (3.4-5.1); TOTAL PROTEIN 6.2 gm/dL (6.0-8.0); URIC ACID 6.3 mg/dL (3.1-7.8)
[2023-04-03 09:39] LABS: VITAMIN D, 25-HYDROXY 57.5 ng/mL (30-100)
[2023-04-03 11:27] LABS: BACTERIA 1+
== END | disposition home or self-care (01) ==
LOC: LAB 08:17
PROVIDERS: ATTEND Internal Medicine Nephrology
DX: I12.9 Hypertensive chronic kidney disease with stage 1 through stage 4 chronic kidney disease, or unspecified chronic kidney disease (principal); N18.32 Chronic kidney disease, stage 3b; D63.1 Anemia in chronic kidney disease; N25.81 Secondary hyperparathyroidism of renal origin; Z94.0 Kidney transplant status; Z79.899 Other long term (current) drug therapy

== ENCOUNTER → 2023-06-01 | Outpatient (CLI) | payer OTHER ==
[2023-06-01 08:32] LABS: BASO % 0.4 % (0.0-1.0); EOS # 0.1 10*3/uL (0.0-0.4); EOS % 0.9 % (1.0-4.0); HEMATOCRIT 41.7 % (37.0-47.0); LYMPH # 3.8 10*3/uL (1.3-4.4); LYMPH % 42.2 % (27.0-41.0); MEAN CELL VOLUME 92.9 fl (81.0-99.0); MEAN CORPUSCULAR HGB 30.1 pg (27.0-31.0); MEAN CORPUSCULAR HGB CONC 32.4 g/dl (33.0-37.0); MEAN PLATELET VOLUME 9.1 fl (9.6-12.3); MONO # 0.7 10*3/uL (0.1-1.0); MONO % 7.8 % (3.0-9.0); NEUT # 4.3 10*3/uL (2.3-7.9); NEUT % 48.5 % (47.0-73.0); PLATELET COUNT AUTOMATED 190 10*3/uL (130-400); RED BLOOD COUNT 4.49 10*6/uL (4.10-5.10); RED CELL DISTRI WIDTH 13.2 % (0-14.5); WHITE BLOOD COUNT 8.9 10*3/uL (4.8-10.8)
[2023-06-01 09:14] LABS: VITAMIN D, 25-HYDROXY 67.7 ng/mL (30-100)
[2023-06-01 09:15] LABS: POTASSIUM 3.7 mmol/L (3.4-5.1); TOTAL PROTEIN 6.3 gm/dL (6.0-8.0)
== END | disposition home or self-care (01) ==
LOC: LAB 08:12
PROVIDERS: ATTEND Internal Medicine
DX: I13.0 Hypertensive heart and chronic kidney disease with heart failure and stage 1 through stage 4 chronic kidney disease, or unspecified chronic kidney disease (principal); E11.22 Type 2 diabetes mellitus with diabetic chronic kidney disease; I50.9 Heart failure, unspecified; N18.9 Chronic kidney disease, unspecified; E03.9 Hypothyroidism, unspecified; G47.30 Sleep apnea, unspecified; E78.81 Lipoid dermatoarthritis; I48.0 Paroxysmal atrial fibrillation; M19.90 Unspecified osteoarthritis, unspecified site; E55.9 Vitamin D deficiency, unspecified; M25.50 Pain in unspecified joint

== ENCOUNTER → 2023-09-11 | Outpatient (CLI) | payer OTHER | END | disposition home or self-care (01) | LOC: RAD 13:02 | PROVIDERS: ATTEND Internal Medicine | DX: R05.3 Chronic cough (principal); I50.9 Heart failure, unspecified; R06.02 Shortness of breath ==

== ENCOUNTER → 2023-10-03 | Outpatient (CLI) | payer OTHER ==
[2023-10-03 08:55] LABS: BASO % 0.3 % (0.0-1.0); BILIRUBIN Negative (Negative); BLOOD Negative (Negative); CLARITY Cloudy (Clear); COLOR Yellow (Yellow); EOS # 0.1 10*3/uL (0.0-0.4); EOS % 0.7 % (1.0-4.0); GLUCOSE Negative (Negative); HEMATOCRIT 38.4 % (37.0-47.0); KETONE Trace (Negative); LEUKO ESTERASE 3+ (Negative); LYMPH # 2.7 10*3/uL (1.3-4.4); LYMPH % 35.6 % (27.0-41.0); MEAN CELL VOLUME 92.8 fl (81.0-99.0); MEAN CORPUSCULAR HGB 29.2 pg (27.0-31.0); MEAN CORPUSCULAR HGB CONC 31.5 g/dl (33.0-37.0); MEAN PLATELET VOLUME 9.1 fl (9.6-12.3); MONO # 0.7 10*3/uL (0.1-1.0); MONO % 8.7 % (3.0-9.0); NEUT # 4.2 10*3/uL (2.3-7.9); NEUT % 54.4 % (47.0-73.0); NITRITE Negative (Negative); PLATELET COUNT AUTOMATED 228 10*3/uL (130-400); RED BLOOD COUNT 4.14 10*6/uL (4.10-5.10); WHITE BLOOD COUNT 7.7 10*3/uL (4.8-10.8)
[2023-10-03 09:02] LABS: URINE CREATININE RANDOM 178.96 mg/dL
[2023-10-03 09:07] LABS: BACTERIA TRACE
[2023-10-03 09:26] LABS: ALKALINE PHOSPHATASE 57 U/L (46-116); BUN 17 mg/dl (9-23); CHLORIDE 104 mmol/L (98-107); CHOLESTEROL 148 mg/dL (<200); LDL CHOLESTEROL 56 mg/dL (9-159); POTASSIUM 3.6 mmol/L (3.4-5.1); SGPT/ALT 12 U/L (5-49); TOTAL PROTEIN 6.2 gm/dL (6.0-8.0); TRIGLYCERIDES 193 mg/dl (<150); URIC ACID 5.4 mg/dL (3.1-7.8)
[2023-10-03 09:28] LABS: VITAMIN D, 25-HYDROXY 55.4 ng/mL (30-100)
== END | disposition home or self-care (01) ==
LOC: LAB 08:28
PROVIDERS: ATTEND Nurse Practitioner Family
DX: I12.9 Hypertensive chronic kidney disease with stage 1 through stage 4 chronic kidney disease, or unspecified chronic kidney disease (principal); N18.32 Chronic kidney disease, stage 3b; N25.81 Secondary hyperparathyroidism of renal origin; D63.1 Anemia in chronic kidney disease; Z94.0 Kidney transplant status

== ENCOUNTER → 2023-10-24 | Outpatient (CLI) | payer OTHER ==
[2023-10-24 09:06] LABS: BASO % 0.4 % (0.0-1.0); EOS # 0.1 10*3/uL (0.0-0.4); EOS % 0.8 % (1.0-4.0); HEMATOCRIT 37.9 % (37.0-47.0); LYMPH # 2.8 10*3/uL (1.3-4.4); LYMPH % 37.4 % (27.0-41.0); MEAN CELL VOLUME 93.3 fl (81.0-99.0); MEAN CORPUSCULAR HGB 29.8 pg (27.0-31.0); MEAN CORPUSCULAR HGB CONC 31.9 g/dl (33.0-37.0); MEAN PLATELET VOLUME 9.3 fl (9.6-12.3); MONO # 0.6 10*3/uL (0.1-1.0); MONO % 8.4 % (3.0-9.0); NEUT # 3.9 10*3/uL (2.3-7.9); NEUT % 52.5 % (47.0-73.0); PLATELET COUNT AUTOMATED 211 10*3/uL (130-400); RED BLOOD COUNT 4.06 10*6/uL (4.10-5.10); RED CELL DISTRI WIDTH 13.9 % (0-14.5); WHITE BLOOD COUNT 7.4 10*3/uL (4.8-10.8)
[2023-10-24 10:01] LABS: TOTAL PROTEIN 6.2 gm/dL (6.0-8.0)
== END ==
LOC: LAB 08:34
PROVIDERS: ATTEND Internal Medicine
DX: I13.0 Hypertensive heart and chronic kidney disease with heart failure and stage 1 through stage 4 chronic kidney disease, or unspecified chronic kidney disease (principal); I50.9 Heart failure, unspecified; N18.9 Chronic kidney disease, unspecified; I48.0 Paroxysmal atrial fibrillation; E55.9 Vitamin D deficiency, unspecified; E78.81 Lipoid dermatoarthritis

== ENCOUNTER → 2023-11-08 | Outpatient (CLI) | payer OTHER | END | disposition home or self-care (01) | LOC: LAB 13:30 | PROVIDERS: ATTEND Internal Medicine | DX: E83.49 Other disorders of magnesium metabolism (principal) ==

== ENCOUNTER 2024-01-12 15:55 | Inpatient (IN) | payer OTHER ==
[~2024-01-12] VITALS: Ht 167.6 cm; Wt 88.1 kg
[2024-01-12 16:04] VITALS: BP 110/66
[2024-01-12] MEDS ORDERED: SODIUM CHLORIDE 0.9% 1,000 ML IV ONE (16:45)
[2024-01-12 16:53] LABS: BASO % 0.1 % (0.0-1.0); HEMATOCRIT 36.7 % (37.0-47.0); LYMPH # 1.9 10*3/uL (1.3-4.4); LYMPH % 23.2 % (27.0-41.0); MEAN CELL VOLUME 87.8 fl (81.0-99.0); MEAN CORPUSCULAR HGB 28.5 pg (27.0-31.0); MEAN CORPUSCULAR HGB CONC 32.4 g/dl (33.0-37.0); MEAN PLATELET VOLUME 8.8 fl (9.6-12.3); MONO # 0.7 10*3/uL (0.1-1.0); MONO % 8.7 % (3.0-9.0); NEUT # 5.7 10*3/uL (2.3-7.9); NEUT % 67.4 % (47.0-73.0); PLATELET COUNT AUTOMATED 256 10*3/uL (130-400); RED BLOOD COUNT 4.18 10*6/uL (4.10-5.10); RED CELL DISTRI WIDTH 13.3 % (0-14.5); WHITE BLOOD COUNT 8.4 10*3/uL (4.8-10.8)
[2024-01-12 17:13] LABS: POTASSIUM 4.5 mmol/L (3.4-5.1); TOTAL PROTEIN 5.9 gm/dL (6.0-8.0)
[2024-01-12 19:25] VITALS: BP 114/76
[2024-01-12] MEDS ORDERED: Ondansetron Hydrochloride 4 MG/2 ML VIAL IV PRN (20:05)
[2024-01-12] MEDS ORDERED: ACETAMINOPHEN 325 MG TAB PO PRN (20:05)
[2024-01-12] MEDS ORDERED: APIXABAN 5 MG TAB PO SCH (22:00)
[2024-01-12 22:11] LABS: POTASSIUM 4.1 mmol/L (3.4-5.1)
[2024-01-12 23:12] VITALS: BP 108/64
[2024-01-13 02:41] VITALS: BP 108/64
[2024-01-13 05:12] VITALS: BP 112/68
[2024-01-13 07:08] LABS: BASO % 0.2 % (0.0-1.0); EOS % 0.2 % (1.0-4.0); HEMATOCRIT 37.9 % (37.0-47.0); LYMPH # 2.1 10*3/uL (1.3-4.4); LYMPH % 22.1 % (27.0-41.0); MEAN CELL VOLUME 89.2 fl (81.0-99.0); MEAN CORPUSCULAR HGB 28.5 pg (27.0-31.0); MEAN CORPUSCULAR HGB CONC 31.9 g/dl (33.0-37.0); MEAN PLATELET VOLUME 9.1 fl (9.6-12.3); MONO # 0.9 10*3/uL (0.1-1.0); MONO % 9.8 % (3.0-9.0); NEUT # 6.4 10*3/uL (2.3-7.9); NEUT % 66.9 % (47.0-73.0); PLATELET COUNT AUTOMATED 270 10*3/uL (130-400); RED BLOOD COUNT 4.25 10*6/uL (4.10-5.10); RED CELL DISTRI WIDTH 13.3 % (0-14.5); WHITE BLOOD COUNT 9.5 10*3/uL (4.8-10.8)
[2024-01-13 07:35] LABS: BUN 16 mg/dl (9-23); CHLORIDE 97 mmol/L (98-107); POTASSIUM 4.1 mmol/L (3.4-5.1)
[2024-01-13 08:58] VITALS: BP 107/59
[2024-01-13] MEDS ORDERED: COREG12.5 M1 PO (09:01)
[2024-01-13] MEDS ORDERED: LANTUS SOL100 UNIT/1 SC (09:03)
[2024-01-13] MEDS ORDERED: LEVOTHYROXINE88 MCG PO (09:04)
[2024-01-13] MEDS ORDERED: MYCOPHENOLIC A180 M1 PO ×2 (09:07→09:08)
[2024-01-13] MEDS ORDERED: [UNRECOGNIZED DRUG - OTHER] PO (09:10)
[2024-01-13] MEDS ORDERED: PROTONIX40 MG PO (09:11)
[2024-01-13] MEDS ORDERED: MAGNESIUM400 M1 PO (09:14)
[2024-01-13 09:36] LABS: BILIRUBIN Negative (Negative); BLOOD Negative (Negative); CLARITY Clear (Clear); COLOR Yellow (Yellow); GLUCOSE Negative (Negative); KETONE Trace (Negative); LEUKO ESTERASE 1+ (Negative); NITRITE Negative (Negative); SPECIFIC GRAVITY 1.015 (1.001-1.030)
[2024-01-13 10:00] LABS: BACTERIA 2+; EPITHELIAL CELLS 16-20; MUCOUS TRACE; YEAST TRACE
[2024-01-13] MEDS ORDERED: DILTIAZEM CD 120 MG CAP PO SCH (10:25)
[2024-01-13] MEDS ORDERED: APIXABAN 5 MG TAB PO SCH (10:25)
[2024-01-13] MEDS ORDERED: Mycophenolate Mofetil 250 MG CAP PO SCH (10:30)
[2024-01-13] MEDS ORDERED: Sulfamethoxazole/Trimethopri 1 TAB TAB PO SCH (10:30)
[2024-01-13] MEDS ORDERED: Tacrolimus 1 MG CAP PO SCH (11:10)
[2024-01-13] MEDS ORDERED: predniSONE 5 MG TAB PO SCH (11:10)
[2024-01-13 13:21] VITALS: BP 138/63
[2024-01-13 17:22] VITALS: BP 147/69
[2024-01-13] MEDS ORDERED: CARVEDILOL 12.5 MG TAB PO SCH (22:00)
[2024-01-13] MEDS ORDERED: Doxycycline Hyclate 100 MG CAP PO SCH (22:00)
[2024-01-14] MEDS ORDERED: Pantoprazole Sodium 40 MG TAB PO SCH (06:00)
[2024-01-14 07:13] LABS: BASO % 0.3 % (0.0-1.0); HEMATOCRIT 36.3 % (37.0-47.0); LYMPH # 2.9 10*3/uL (1.3-4.4); LYMPH % 26.6 % (27.0-41.0); MEAN CELL VOLUME 87.9 fl (81.0-99.0); MEAN CORPUSCULAR HGB 28.6 pg (27.0-31.0); MEAN CORPUSCULAR HGB CONC 32.5 g/dl (33.0-37.0); MONO % 9.2 % (3.0-9.0); NEUT # 6.8 10*3/uL (2.3-7.9); PLATELET COUNT AUTOMATED 303 10*3/uL (130-400); RED BLOOD COUNT 4.13 10*6/uL (4.10-5.10); RED CELL DISTRI WIDTH 13.4 % (0-14.5); WHITE BLOOD COUNT 10.7 10*3/uL (4.8-10.8)
[2024-01-14] MEDS ORDERED: Levothyroxine Sodium 88 MCG TAB PO SCH (07:30)
[2024-01-14] MEDS ORDERED: SODIUM CHLORIDE 0.9% 1,000 ML IV ONE (07:55)
[2024-01-14 08:00] VITALS: BP 143/56
[2024-01-14] MEDS ORDERED: SIMVASTATIN 20 MG TAB PO SCH (10:00)
[2024-01-14] MEDS ORDERED: predniSONE 5 MG TAB PO SCH (10:00)
[2024-01-14] MEDS ORDERED: predniSONE 10 MG TAB PO SCH (10:00)
[2024-01-14] MEDS ORDERED: Tacrolimus 1 MG CAP PO SCH (10:00)
[2024-01-14] MEDS ORDERED: ALLOPURINOL 100 MG TAB PO SCH (10:00)
[2024-01-14] MEDS ORDERED: HYDROCORTISONE 5 MG TAB PO SCH (11:00)
[2024-01-14 11:57] VITALS: BP 103/52
[2024-01-14 16:00] VITALS: BP 107/71
[2024-01-14 21:41] VITALS: BP 115/58
[2024-01-14 22:30] VITALS: BP 120/70
[2024-01-14] MEDS ORDERED: MED. FROM HOME 1 EACH EA PO SCH (22:50)
[2024-01-15 05:30] LABS: POTASSIUM 4.1 mmol/L (3.4-5.1)
[2024-01-15 06:18] LABS: BASO % 0.1 % (0.0-1.0); HEMATOCRIT 36.8 % (37.0-47.0); LYMPH # 1.6 10*3/uL (1.3-4.4); LYMPH % 15.3 % (27.0-41.0); MEAN CELL VOLUME 90.4 fl (81.0-99.0); MEAN CORPUSCULAR HGB 28.7 pg (27.0-31.0); MEAN CORPUSCULAR HGB CONC 31.8 g/dl (33.0-37.0); MEAN PLATELET VOLUME 9.8 fl (9.6-12.3); MONO # 0.4 10*3/uL (0.1-1.0); MONO % 3.9 % (3.0-9.0); NEUT # 8.2 10*3/uL (2.3-7.9); NEUT % 79.4 % (47.0-73.0); PLATELET COUNT AUTOMATED 352 10*3/uL (130-400); RED BLOOD COUNT 4.07 10*6/uL (4.10-5.10); RED CELL DISTRI WIDTH 13.4 % (0-14.5); WHITE BLOOD COUNT 10.4 10*3/uL (4.8-10.8)
[2024-01-15] MEDS ORDERED: BENZOCAINE 20% 9 GM TUBE T SCH (08:35)
[2024-01-15] MEDS ORDERED: CYANOCOBALAMIN 500 MCG TAB PO SCH (08:40)
[2024-01-15 08:44] VITALS: BP 90/64
[2024-01-15] MEDS ORDERED: DEXTROSE 10 % IN WATER 250 ML IV PRN (09:45)
[2024-01-15] MEDS ORDERED: NYSTATIN OINTMENT 15 GM TUBE T SCH (10:00)
[2024-01-15] MEDS ORDERED: MED. FROM HOME 1 EACH EA PO SCH (10:00)
[2024-01-15] MEDS ORDERED: Insulin Glargine, Recombinan 1 UNIT/0.01 ML SC SCH (10:00)
[2024-01-15] MEDS ORDERED: INSULIN LISPRO 1 UNIT/0.01 ML SQ SCH (11:30)
[2024-01-15 12:00] VITALS: BP 124/73
[2024-01-15] MEDS ORDERED: SODIUM CHLORIDE 0.9% 1,000 ML IV SCH (16:05)
[2024-01-15 16:32] VITALS: BP 96/62
[2024-01-15 20:00] VITALS: BP 129/65
[2024-01-16] VITALS: BP 117/69
[2024-01-16 05:23] LABS: POTASSIUM 4.2 mmol/L (3.4-5.1)
[2024-01-16 06:13] LABS: BASO % 0.2 % (0.0-1.0); EOS % 0.1 % (1.0-4.0); HEMATOCRIT 33.6 % (37.0-47.0); LYMPH # 1.9 10*3/uL (1.3-4.4); LYMPH % 17.4 % (27.0-41.0); MEAN CELL VOLUME 90.6 fl (81.0-99.0); MEAN CORPUSCULAR HGB 28.8 pg (27.0-31.0); MEAN CORPUSCULAR HGB CONC 31.8 g/dl (33.0-37.0); MEAN PLATELET VOLUME 9.7 fl (9.6-12.3); MONO # 0.6 10*3/uL (0.1-1.0); MONO % 5.2 % (3.0-9.0); NEUT # 8.4 10*3/uL (2.3-7.9); NEUT % 75.9 % (47.0-73.0); PLATELET COUNT AUTOMATED 375 10*3/uL (130-400); RED BLOOD COUNT 3.71 10*6/uL (4.10-5.10); RED CELL DISTRI WIDTH 13.5 % (0-14.5); WHITE BLOOD COUNT 11.1 10*3/uL (4.8-10.8)
[2024-01-16 08:00] VITALS: BP 110/74
[2024-01-16] MEDS ORDERED: hydrOXYzine pamoate 25 MG CAP PO PRN (09:45)
[2024-01-16 12:00] VITALS: BP 115/83
[2024-01-16 16:00] VITALS: BP 112/69
[2024-01-16 20:00] VITALS: BP 113/75
[2024-01-17] VITALS: BP 114/70
[2024-01-17 05:13] LABS: POTASSIUM 4.4 mmol/L (3.4-5.1)
[2024-01-17 06:07] LABS: BASO % 0.1 % (0.0-1.0); EOS % 0.2 % (1.0-4.0); HEMATOCRIT 33.8 % (37.0-47.0); LYMPH % 23.8 % (27.0-41.0); MEAN CELL VOLUME 91.4 fl (81.0-99.0); MEAN CORPUSCULAR HGB 28.6 pg (27.0-31.0); MEAN CORPUSCULAR HGB CONC 31.4 g/dl (33.0-37.0); MEAN PLATELET VOLUME 9.3 fl (9.6-12.3); MONO # 0.6 10*3/uL (0.1-1.0); MONO % 6.9 % (3.0-9.0); NEUT # 5.6 10*3/uL (2.3-7.9); NEUT % 67.1 % (47.0-73.0); PLATELET COUNT AUTOMATED 357 10*3/uL (130-400); RED CELL DISTRI WIDTH 13.6 % (0-14.5); WHITE BLOOD COUNT 8.4 10*3/uL (4.8-10.8)
[2024-01-17 08:00] VITALS: BP 131/87
[2024-01-17] MEDS ORDERED: hydrOXYzine pamoate 25 MG CAP PO ONE (09:05)
[2024-01-17 16:00] VITALS: BP 119/62
[2024-01-17 17:35] LABS: BILIRUBIN Negative (Negative); BLOOD Negative (Negative); CLARITY Cloudy (Clear); COLOR Yellow (Yellow); GLUCOSE Negative (Negative); KETONE Negative (Negative); LEUKO ESTERASE Negative (Negative); NITRITE Negative (Negative); PH 5.5 (4.5-8.0); UROBILINOGEN 0.2 E.U./dl (0.0-1.0)
[2024-01-17 17:48] LABS: RBC 0-2 rbc/hpf (0-2); WBC 0-2 wbc/hpf (0-5)
[2024-01-17] MEDS ORDERED: MEROPENEM IV ONE ×3 (18:30→20:20)
[2024-01-17] MEDS ORDERED: INFUSION IV ONE ×2 (18:30→19:20)
[2024-01-17] MEDS ORDERED: SODIUM CHLORIDE 0.9% IV ONE (20:20)
[2024-01-17] MEDS ORDERED: TEMAZEPAM 15 MG CAP PO ONE (20:35)
[2024-01-17] MEDS ORDERED: MICAFUNGIN SODIUM IV SCH (21:00)
[2024-01-17] MEDS ORDERED: SODIUM CHLORIDE 0.9% IV SCH (21:00)
[2024-01-18] VITALS (13 sets, daily range): BP systolic 66–138; BP diastolic 40–96
[2024-01-18] MEDS ORDERED: Meropenem 500 MG in SODIUM CHLORIDE 0.9% 50 ML IV SCH ×2 (02:00→22:00)
[2024-01-18 05:35] LABS: BUN 18 mg/dl (9-23); CHLORIDE 104 mmol/L (98-107); POTASSIUM 4.2 mmol/L (3.4-5.1)
[2024-01-18 06:20] LABS: BASO % 0.1 % (0.0-1.0); EOS % 0.1 % (1.0-4.0); HEMATOCRIT 36.5 % (37.0-47.0); LYMPH # 2.3 10*3/uL (1.3-4.4); LYMPH % 28.5 % (27.0-41.0); MEAN CELL VOLUME 91.9 fl (81.0-99.0); MEAN CORPUSCULAR HGB 28.5 pg (27.0-31.0); MEAN PLATELET VOLUME 9.4 fl (9.6-12.3); MONO # 0.6 10*3/uL (0.1-1.0); MONO % 7.4 % (3.0-9.0); NEUT # 5.1 10*3/uL (2.3-7.9); NEUT % 62.8 % (47.0-73.0); PLATELET COUNT AUTOMATED 338 10*3/uL (130-400); RED BLOOD COUNT 3.97 10*6/uL (4.10-5.10); RED CELL DISTRI WIDTH 13.5 % (0-14.5); WHITE BLOOD COUNT 8.2 10*3/uL (4.8-10.8)
[2024-01-18] MEDS ORDERED: MUPIROCIN 15 GM TUBE T SCH (08:00)
[2024-01-18] MEDS ORDERED: hydrOXYzine pamoate 25 MG CAP PO PRN (09:30)
[2024-01-18] MEDS ORDERED: INFUSION IV ONE ×2 (14:15→15:15)
[2024-01-18] MEDS ORDERED: MEROPENEM IV ONE ×4 (14:15→17:50)
[2024-01-18] MEDS ORDERED: SODIUM CHLORIDE 0.9% 1,000 ML IV ONE ×2 (15:05→15:10)
[2024-01-18] MEDS ORDERED: SODIUM CHLORIDE 0.9% IV ONE ×2 (16:15→17:50)
[2024-01-18] MEDS ORDERED: Insulin Glargine, Recombinan 1 UNIT/0.01 ML SC SCH (22:00)
[2024-01-19] VITALS: BP 117/69
[2024-01-19 05:35] LABS: BUN 21 mg/dl (9-23); CHLORIDE 104 mmol/L (98-107); POTASSIUM 4.3 mmol/L (3.4-5.1)
[2024-01-19 06:15] LABS: BASO % 0.1 % (0.0-1.0); EOS % 0.2 % (1.0-4.0); HEMATOCRIT 34.4 % (37.0-47.0); LYMPH # 2.5 10*3/uL (1.3-4.4); LYMPH % 24.8 % (27.0-41.0); MEAN CORPUSCULAR HGB 28.6 pg (27.0-31.0); MEAN CORPUSCULAR HGB CONC 31.1 g/dl (33.0-37.0); MEAN PLATELET VOLUME 9.3 fl (9.6-12.3); MONO # 0.7 10*3/uL (0.1-1.0); MONO % 6.4 % (3.0-9.0); NEUT # 6.9 10*3/uL (2.3-7.9); NEUT % 67.6 % (47.0-73.0); PLATELET COUNT AUTOMATED 305 10*3/uL (130-400); RED BLOOD COUNT 3.74 10*6/uL (4.10-5.10); RED CELL DISTRI WIDTH 13.5 % (0-14.5); WHITE BLOOD COUNT 10.2 10*3/uL (4.8-10.8)
[2024-01-19 08:10] VITALS: BP 138/96
[2024-01-19] MEDS ORDERED: MULTIVITAMIN 1 TAB TAB PO SCH (10:00)
[2024-01-19 12:00] VITALS: BP 116/63
[2024-01-19 16:00] VITALS: BP 123/59
[2024-01-19 20:00] VITALS: BP 120/50
[2024-01-19] MEDS ORDERED: TEMAZEPAM 15 MG CAP PO PRN (22:15)
[2024-01-20 05:31] LABS: POTASSIUM 4.6 mmol/L (3.4-5.1)
[2024-01-20 06:20] LABS: BASO % 0.1 % (0.0-1.0); EOS % 0.2 % (1.0-4.0); HEMATOCRIT 33.3 % (37.0-47.0); LYMPH # 2.5 10*3/uL (1.3-4.4); LYMPH % 24.9 % (27.0-41.0); MEAN CELL VOLUME 90.7 fl (81.0-99.0); MEAN CORPUSCULAR HGB 29.2 pg (27.0-31.0); MEAN CORPUSCULAR HGB CONC 32.1 g/dl (33.0-37.0); MEAN PLATELET VOLUME 9.6 fl (9.6-12.3); MONO # 0.7 10*3/uL (0.1-1.0); MONO % 6.6 % (3.0-9.0); NEUT # 6.7 10*3/uL (2.3-7.9); NEUT % 67.4 % (47.0-73.0); PLATELET COUNT AUTOMATED 261 10*3/uL (130-400); RED BLOOD COUNT 3.67 10*6/uL (4.10-5.10); RED CELL DISTRI WIDTH 13.7 % (0-14.5)
[2024-01-20 08:00] VITALS: BP 141/86
[2024-01-20 12:00] VITALS: BP 156/77
[2024-01-20] MEDS ORDERED: Sulfamethoxazole/Trimethopri 1 TAB TAB PO SCH ×2 (13:00→14:15)
[2024-01-20 16:53] VITALS: BP 128/62
[2024-01-21] VITALS: BP 104/68
[2024-01-21] MEDS ORDERED: ERTAPENEM1 GM IV (01:18)
[2024-01-21 05:40] LABS: POTASSIUM 4.6 mmol/L (3.4-5.1)
[2024-01-21 06:11] LABS: BASO % 0.1 % (0.0-1.0); EOS % 0.4 % (1.0-4.0); HEMATOCRIT 36.9 % (37.0-47.0); LYMPH # 2.7 10*3/uL (1.3-4.4); LYMPH % 24.8 % (27.0-41.0); MEAN CELL VOLUME 90.2 fl (81.0-99.0); MEAN CORPUSCULAR HGB 28.6 pg (27.0-31.0); MEAN CORPUSCULAR HGB CONC 31.7 g/dl (33.0-37.0); MEAN PLATELET VOLUME 9.4 fl (9.6-12.3); MONO # 0.9 10*3/uL (0.1-1.0); MONO % 7.9 % (3.0-9.0); NEUT # 7.3 10*3/uL (2.3-7.9); NEUT % 65.7 % (47.0-73.0); PLATELET COUNT AUTOMATED 282 10*3/uL (130-400); RED BLOOD COUNT 4.09 10*6/uL (4.10-5.10); RED CELL DISTRI WIDTH 13.7 % (0-14.5)
[2024-01-21 08:00] VITALS: BP 120/80
[2024-01-21 12:00] VITALS: BP 95/56
[2024-01-21 20:00] VITALS: BP 115/67
[2024-01-22] VITALS: BP 103/66
[2024-01-22 06:07] LABS: BASO % 0.2 % (0.0-1.0); EOS % 0.1 % (1.0-4.0); HEMATOCRIT 35.5 % (37.0-47.0); LYMPH # 2.4 10*3/uL (1.3-4.4); LYMPH % 29.7 % (27.0-41.0); MEAN CELL VOLUME 91.7 fl (81.0-99.0); MEAN CORPUSCULAR HGB 27.9 pg (27.0-31.0); MEAN CORPUSCULAR HGB CONC 30.4 g/dl (33.0-37.0); MEAN PLATELET VOLUME 9.7 fl (9.6-12.3); MONO # 0.6 10*3/uL (0.1-1.0); MONO % 7.8 % (3.0-9.0); NEUT % 61.5 % (47.0-73.0); PLATELET COUNT AUTOMATED 272 10*3/uL (130-400); RED BLOOD COUNT 3.87 10*6/uL (4.10-5.10); RED CELL DISTRI WIDTH 13.6 % (0-14.5); WHITE BLOOD COUNT 8.2 10*3/uL (4.8-10.8)
[2024-01-22 08:00] VITALS: BP 146/69
[2024-01-22 12:00] VITALS: BP 146/61
[2024-01-22 16:00] VITALS: BP 115/54
[2024-01-22 20:00] VITALS: BP 117/66
[2024-01-23] VITALS: BP 121/69
[2024-01-23 00:22] LABS: BILIRUBIN Negative (Negative); BLOOD Negative (Negative); CLARITY Cloudy (Clear); COLOR Yellow (Yellow); GLUCOSE Negative (Negative); KETONE Trace (Negative); LEUKO ESTERASE Trace (Negative); NITRITE Negative (Negative)
[2024-01-23 00:32] LABS: EPITHELIAL CELLS 21-30; YEAST 1+
[2024-01-23 06:56] LABS: BASO % 0.2 % (0.0-1.0); EOS % 0.2 % (1.0-4.0); HEMATOCRIT 37.6 % (37.0-47.0); LYMPH # 2.8 10*3/uL (1.3-4.4); LYMPH % 22.2 % (27.0-41.0); MEAN CELL VOLUME 90.8 fl (81.0-99.0); MEAN CORPUSCULAR HGB 28.5 pg (27.0-31.0); MEAN CORPUSCULAR HGB CONC 31.4 g/dl (33.0-37.0); MEAN PLATELET VOLUME 9.8 fl (9.6-12.3); MONO # 0.9 10*3/uL (0.1-1.0); MONO % 7.2 % (3.0-9.0); NEUT # 8.8 10*3/uL (2.3-7.9); NEUT % 69.4 % (47.0-73.0); PLATELET COUNT AUTOMATED 276 10*3/uL (130-400); RED BLOOD COUNT 4.14 10*6/uL (4.10-5.10); RED CELL DISTRI WIDTH 13.6 % (0-14.5); WHITE BLOOD COUNT 12.7 10*3/uL (4.8-10.8)
[2024-01-23 07:29] LABS: ALKALINE PHOSPHATASE 117 U/L (46-116); BUN 21 mg/dl (9-23); CHLORIDE 98 mmol/L (98-107); LIPASE 38 U/L (12-53); POTASSIUM 5.1 mmol/L (3.4-5.1); SGPT/ALT 31 U/L (5-49); TOTAL PROTEIN 5.6 gm/dL (6.0-8.0)
[2024-01-23 08:00] VITALS: BP 179/89
[2024-01-23 12:00] VITALS: BP 162/68
[2024-01-23 16:00] VITALS: BP 113/57
[2024-01-23 20:00] VITALS: BP 93/48
[2024-01-24] VITALS: BP 140/76
[2024-01-24 06:20] LABS: BASO % 0.2 % (0.0-1.0); EOS % 0.1 % (1.0-4.0); HEMATOCRIT 36.7 % (37.0-47.0); LYMPH # 2.5 10*3/uL (1.3-4.4); MEAN CELL VOLUME 89.3 fl (81.0-99.0); MEAN CORPUSCULAR HGB 28.7 pg (27.0-31.0); MEAN CORPUSCULAR HGB CONC 32.2 g/dl (33.0-37.0); MONO # 0.8 10*3/uL (0.1-1.0); MONO % 7.3 % (3.0-9.0); NEUT # 7.6 10*3/uL (2.3-7.9); NEUT % 68.7 % (47.0-73.0); PLATELET COUNT AUTOMATED 220 10*3/uL (130-400); RED BLOOD COUNT 4.11 10*6/uL (4.10-5.10); RED CELL DISTRI WIDTH 13.8 % (0-14.5)
[2024-01-24 07:52] LABS: ALKALINE PHOSPHATASE 121 U/L (46-116); BUN 20 mg/dl (9-23); CHLORIDE 99 mmol/L (98-107); POTASSIUM 4.4 mmol/L (3.4-5.1); SGPT/ALT 39 U/L (5-49); TOTAL PROTEIN 5.7 gm/dL (6.0-8.0)
[2024-01-24 08:00] VITALS: BP 158/80
[2024-01-24] MEDS ORDERED: LORazepam 0.5 MG TAB PO ONE (08:40)
[2024-01-24] MEDS ORDERED: LORazepam 0.5 MG TAB PO PRN (08:40)
[2024-01-24] MEDS ORDERED: GADOTERATE MEGLUMINE 10 MMOL/20 ML VIAL IV ONE (10:45)
[2024-01-24] MEDS ORDERED: SODIUM CHLORIDE 0.9% 50 ML IV ONE (10:45)
[2024-01-24] MEDS ORDERED: HEPARIN SODIUM 300 UNITS/3 ML SYR IV ONE (11:17)
[2024-01-24] MEDS ORDERED: LEVOTHYROXINE100 MC1 PO (11:52)
[2024-01-24 12:00] VITALS: BP 106/45
[2024-01-24 16:00] VITALS: BP 109/57
[2024-01-24 20:00] VITALS: BP 113/59
[2024-01-25] VITALS: BP 97/49
[2024-01-25 06:16] LABS: BASO % 0.2 % (0.0-1.0); EOS % 0.1 % (1.0-4.0); HEMATOCRIT 34.6 % (37.0-47.0); LYMPH # 2.3 10*3/uL (1.3-4.4); LYMPH % 24.1 % (27.0-41.0); MEAN CELL VOLUME 91.3 fl (81.0-99.0); MEAN CORPUSCULAR HGB 28.5 pg (27.0-31.0); MEAN CORPUSCULAR HGB CONC 31.2 g/dl (33.0-37.0); MEAN PLATELET VOLUME 9.6 fl (9.6-12.3); MONO # 0.7 10*3/uL (0.1-1.0); MONO % 7.2 % (3.0-9.0); NEUT # 6.6 10*3/uL (2.3-7.9); PLATELET COUNT AUTOMATED 215 10*3/uL (130-400); RED BLOOD COUNT 3.79 10*6/uL (4.10-5.10); RED CELL DISTRI WIDTH 13.7 % (0-14.5); WHITE BLOOD COUNT 9.7 10*3/uL (4.8-10.8)
[2024-01-25 08:00] VITALS: BP 127/65
[2024-01-25 08:48] LABS: ALKALINE PHOSPHATASE 111 U/L (46-116); BUN 22 mg/dl (9-23); CHLORIDE 99 mmol/L (98-107); POTASSIUM 4.6 mmol/L (3.4-5.1); SGPT/ALT 43 U/L (5-49); TOTAL PROTEIN 5.3 gm/dL (6.0-8.0)
[2024-01-25 12:00] VITALS: BP 118/50
[2024-01-25 16:00] VITALS: BP 111/45
[2024-01-25 20:00] VITALS: BP 111/65
[2024-01-25] MEDS ORDERED: Meropenem 500 MG IV SCH (22:50)
[2024-01-26] VITALS: BP 105/44
[2024-01-26] MEDS ORDERED: Meropenem 500 MG in SODIUM CHLORIDE 0.9% 50 ML IV SCH
[2024-01-26 04:07] LABS: CANCER ANTIGEN (CA) 125 76.8 U/mL (0.0-38.1)
[2024-01-26 08:00] VITALS: BP 150/78
[2024-01-26] MEDS ORDERED: PREMIERPRO RX500 M2 IV (12:14)
[2024-01-26] MEDS ORDERED: ADMELOG100 UNIT/1 SQ (12:18)
[2024-01-26] MEDS ORDERED: CARVEDILOL12.5 MG PO (12:18)
[2024-01-26] MEDS ORDERED: TAB-A-VITE TA400 MCG PO (12:18)
[2024-01-26] MEDS ORDERED: Synthroid,Levo88 MCG PO (12:18)
[2024-01-26] MEDS ORDERED: SEPTDS PO (12:18)
[2024-01-26] MEDS ORDERED: LANTUS100 UNIT/1 SC (12:18)
[2024-01-26] MEDS ORDERED: PREDNISONE10 MG PO (12:18)
[2024-01-26] MEDS ORDERED: PHARMASSURE V500 MCG PO (12:18)
[2024-01-27] MEDS ORDERED: Meropenem 50 ML IV SCH (12:00)
== END 2024-01-26 12:45 | disposition short-term general hospital (02) | DRG 865 ==
LOC: ED 15:55 → EDHOLD 19:52 → ICCU 19:52 → 4E 01-22 08:45
PROVIDERS: Internal Medicine; Internal Medicine Infectious Disease; Nurse Practitioner Family; Student in an Organized Health Care Education/Training Program; ADMIT Student in an Organized Health Care Education/Training Program; ATTEND Student in an Organized Health Care Education/Training Program
PROC: 05HC33Z Insertion of Infusion Device into Left Basilic Vein, Percutaneous Approach (ICD-10-PCS; principal; 2024-01-22)
DX: B34.9 Viral infection, unspecified (principal); N17.0 Acute kidney failure with tubular necrosis; E27.40 Unspecified adrenocortical insufficiency; E87.1 Hypo-osmolality and hyponatremia; Z94.0 Kidney transplant status; N39.0 Urinary tract infection, site not specified; Q61.3 Polycystic kidney, unspecified; I48.20 Chronic atrial fibrillation, unspecified; R65.10 Systemic inflammatory response syndrome (SIRS) of non-infectious origin without acute organ dysfunction; E03.9 Hypothyroidism, unspecified; D64.9 Anemia, unspecified; E87.8 Other disorders of electrolyte and fluid balance, not elsewhere classified; D89.9 Disorder involving the immune mechanism, unspecified; I50.9 Heart failure, unspecified; F32.A Depression, unspecified; E11.40 Type 2 diabetes mellitus with diabetic neuropathy, unspecified; E78.5 Hyperlipidemia, unspecified; I11.0 Hypertensive heart disease with heart failure; E11.649 Type 2 diabetes mellitus with hypoglycemia without coma; G43.909 Migraine, unspecified, not intractable, without status migrainosus; R16.0 Hepatomegaly, not elsewhere classified; R74.01 Elevation of levels of liver transaminase levels; Z20.822 Contact with and (suspected) exposure to COVID-19; Z79.899 Other long term (current) drug therapy; Z79.01 Long term (current) use of anticoagulants; Z79.2 Long term (current) use of antibiotics; Z88.6 Allergy status to analgesic agent; Z88.1 Allergy status to other antibiotic agents; Z88.0 Allergy status to penicillin; Z88.8 Allergy status to other drugs, medicaments and biological substances; Z91.09 Other allergy status, other than to drugs and biological substances; Z86.718 Personal history of other venous thrombosis and embolism; Z90.49 Acquired absence of other specified parts of digestive tract; Z90.711 Acquired absence of uterus with remaining cervical stump; Z82.49 Family history of ischemic heart disease and other diseases of the circulatory system; Z79.4 Long term (current) use of insulin; Z86.711 Personal history of pulmonary embolism; Z90.5 Acquired absence of kidney